=== PATIENT | female | born 1950 | race Caucasian/White ===

== ENCOUNTER 2018-08-03 00:42 | Outpatient (CLI) | payer MEDICARE, OTHER, SELFPAY ==
--- NOTE | 2018-08-03 12:40 | DI.MAMMO_ITS ---
SYMPTOM/DIAGNOSIS: SCREENING, Z12.39 MAMMOGRAMS: Mammograms were interpreted according to the usual protocol including computer analysis with CAD system, tomosynthesis and C view imaging. Comparison is made with exams from [id number]. The breasts are composed of fatty density tissue, breast density, Category A. No suspicious masses or suspicious microcalcifications are seen. There has been no significant change. IMPRESSION: Category 1A, negative mammogram. Yearly screening mammography is recommended. [facility] ASSESSMENT OF FINDINGS: Negative. Category 1. Patient will receive a letter notifying them of these results. BI-RAD category A. The breasts are almost entirely fatty.
== END 2018-08-03 01:02 ==
PROVIDERS: PCP Internal Medicine; Visit Provider Internal Medicine
DX: Z12.31 Encounter for screening mammogram for malignant neoplasm of breast (principal)
CPT/HCPCS: 77063; 77067

== ENCOUNTER 2019-01-25 10:06 | Outpatient (REF) | payer MEDICARE, OTHER, SELFPAY ==
[2019-01-25 21:54] LABS: Anion Gap 10.8 mmol/L (3-11); BUN 27 mg/dL (7-18); CO2 27.2 mmol/L (21.0-32.0); CREATININE 1.04 mg/dL (0.55-1.02); Calcium 9.2 mg/dL (8.5-10.1); Chloride 105 mmol/L (98-107); Glucose 117 mg/dL (70-100); Potassium 4.9 mmol/L (3.5-5.1); Sodium 143 mmol/L (136-145)
== END 2019-01-25 10:26 ==
LOC: NCHCN 10:06
PROVIDERS: PCP Internal Medicine; Visit Provider Internal Medicine
DX: I10 Essential (primary) hypertension (principal)
CPT/HCPCS: 80048

== ENCOUNTER 2020-01-25 22:27 | Outpatient (REF) | payer MEDICARE, OTHER, SELFPAY ==
[2020-01-25 21:03] LABS: Anion Gap 8.5 mmol/L (3-11); BUN 32 mg/dL (7-18); CO2 28.5 mmol/L (21.0-32.0); Calcium 9.6 mg/dL (8.5-10.1); Chloride 105 mmol/L (98-107); Estimated GFR 49.25 (mL/min/1.73m2); Glucose 95 mg/dL (74-106); Potassium 4.7 mmol/L (3.5-5.1); Sodium 142 mmol/L (136-145)
[2020-01-25 21:26] LABS: Hemoglobin A1C 6.4 % (3.8-5.6)
== END 2020-01-25 22:47 ==
LOC: NCHCN 22:27
PROVIDERS: PCP Internal Medicine; Visit Provider Internal Medicine
DX: E11.9 Type 2 diabetes mellitus without complications (principal); I10 Essential (primary) hypertension; E78.5 Hyperlipidemia, unspecified; E66.9 Obesity, unspecified
CPT/HCPCS: 80048; 83036

== ENCOUNTER 2020-08-11 01:04 | Outpatient (CLI) | payer MEDICARE, OTHER, SELFPAY ==
--- NOTE | 2020-08-11 | DI.MAMMO_ITS ---
EXAM: MG MAMMO SCREENING CLINICAL HISTORY: SCREENING, Z12.31 TECHNIQUE: Bilateral full field digital CC and MLO mammographic images were obtained with 3D tomosyn thesis and utilizing computer aided detection (CAD). COMPARISON: Available for comparison. FINDINGS: Masses/Architectural Distortion: None seen. Microcalcifications: No suspicious pleomorphic-type are seen. Skin Thickening/Nipple Retraction: None. IMPRESSION: 1. No significant interval change with no specific features of malignancy noted. 2. Unless there is more urgent need, screening mammography is recommended, as per [employer] guidelines. BI-RADS Category 1 - Negative Breast Density - Category A - Almost entirely fatty Breast density category C or D implies that the patient has dense breast tissue. Dense breast tissue is very common and is not abnormal but dense breast tissue can make it harder to find cancer on a ma mmogram. Also, dense breast tissue may increase their breast cancer risk. This information about the result of the mammogram report was provided to the patient to raise their awareness. Use this report when you speak with the patient about their risks for breast cancer, which includes their family hist ory. At that time, you may recommend for more screening tests (Ultrasound or MRI) as they might be us eful based on their risk. A negative radiographic report should not delay biopsy if a dominant or clinically suspicious mass is present. Up to ten percent of cancers are not identified on mammography. A negative report may reinforce clinical impression. Adenosis and dense breasts may obscure an underlying neoplasm. False positive reports average 6 to 10%. Patient will receive a letter notifying them of these results.
== END 2020-08-11 01:05 | disposition home or self-care (01) ==
LOC: DI 01:04
PROVIDERS: PCP Internal Medicine; Visit Provider Internal Medicine
DX: Z12.31 Encounter for screening mammogram for malignant neoplasm of breast (principal)
CPT/HCPCS: 77063; 77067

== ENCOUNTER 2021-02-04 15:15 | Outpatient (REF) | payer MEDICARE, OTHER, SELFPAY ==
[2021-02-04 14:33] LABS: HCT 37.8 % (36.0-46.0); HGB 11.8 g/dL (11.2-15.7); MCH 27.8 pg (27.0-33.0); MCHC 31.2 % (32.0-36.0); MCV 89.2 fL (80-95); MPV 11.5 fL (8.0-11.0); Platelet Count 296 10^3/uL (130-400); RBC 4.24 10^6/uL (3.93-5.22); RDW 13.2 % (11.7-14.6); RDW-SD 43.4 fL; WBC 9.79 10^3/uL (4.4-10.8)
[2021-02-04 15:21] LABS: ALT 28 U/L (14-59); AST 15 U/L (15-37); Albumin 3.6 g/dL (3.4-5.0); Alkaline Phosphatase 84 U/L (46-116); BUN 26 mg/dL (7-18); Bilirubin, Total 0.4 mg/dL (0.2-1.0); CREATININE 1.2 mg/dL (0.55-1.02); Calcium 9.4 mg/dL (8.5-10.1); Chloride 103 mmol/L (98-107); Estimated GFR 44.41 (mL/min/1.73m2); Glucose 117 mg/dL (74-106); Potassium 4.7 mmol/L (3.5-5.1); Sodium 139 mmol/L (136-145)
== END 2021-02-04 15:16 | disposition home or self-care (01) ==
LOC: NCHCN 15:15
PROVIDERS: PCP Internal Medicine; Visit Provider Family Medicine
DX: E11.9 Type 2 diabetes mellitus without complications (principal); N18.30 Chronic kidney disease, stage 3 unspecified
CPT/HCPCS: 80053; 85027

== ENCOUNTER 2022-02-03 08:11 | Outpatient (REF) | payer MEDICARE, OTHER, SELFPAY ==
[2022-02-03 15:01] LABS: HCT 39.3 % (36.0-46.0); HGB 12.4 g/dL (11.2-15.7); MCH 28.7 pg (27.0-33.0); MCHC 31.6 % (32.0-36.0); MCV 91 fL (80-95); Platelet Count 283 10^3/uL (130-400); RBC 4.32 10^6/uL (3.93-5.22); WBC 11.09 10^3/uL (4.4-10.8)
[2022-02-03 15:21] LABS: ALT 25 U/L (14-59); AST 17 U/L (15-37); Albumin 3.5 g/dL (3.4-5.0); Alkaline Phosphatase 74 U/L (46-116); Anion Gap 9.9 mmol/L (3-11); BUN 30 mg/dL (7-18); Bilirubin, Total 0.4 mg/dL (0.2-1.0); CO2 26.1 mmol/L (21.0-32.0); CREATININE 1.4 mg/dL (0.55-1.02); Calcium 9.1 mg/dL (8.5-10.1); Calculated LDL 53 mg/dL (<100); Chloride 106 mmol/L (98-107); Cholesterol 124 mg/dL (<200); Estimated GFR 37.07 (mL/min/1.73m2); Glucose 124 mg/dL (74-106); HDL Cholesterol 44 mg/dL (40-60); Potassium 4.5 mmol/L (3.5-5.1); Sodium 142 mmol/L (136-145); Total Protein 7.2 g/dL (6.4-8.2); Triglyceride 135 mg/dL (<150)
[2022-02-03 15:32] LABS: Hemoglobin A1C 6.6 % (<5.7)
== END 2022-02-03 08:12 | disposition home or self-care (01) ==
LOC: NCHCN 08:11
PROVIDERS: PCP Internal Medicine; Visit Provider Family Medicine
DX: E11.9 Type 2 diabetes mellitus without complications (principal); E78.5 Hyperlipidemia, unspecified; I10 Essential (primary) hypertension; E66.9 Obesity, unspecified
CPT/HCPCS: 80053; 80061; 85027; 83036

== ENCOUNTER 2022-09-16 01:00 | Outpatient (CLI) | payer MEDICARE, SELFPAY ==
--- NOTE | 2022-09-16 12:45 | DI.MAMMO_ITS ---
Exam(s) MAMMO SCREENING EXAM: MAMMO SCREENING CLINICAL HISTORY: SCREENING, Z12.31 TECHNIQUE: Mammograms were interpreted according to the usual protocol including computer analysis w [employer] CAD system, tomosynthesis and C-view imaging. COMPARISON: 2012 through 2020 FINDINGS: The breasts are composed of mainly fatty density , Breast Density category A. No suspicious masses or suspicious microcalcifications are seen. No skin thickening or abnormal axillary lymph nodes are seen. There has been no significant change from prior exams. IMPRESSION: BI-RADS Category 1, Negative mammogram Yearly screening mammography is recommended. Breast Density - Category A, fatty density. A negative radiographic report should not delay biopsy if a dominant or clinically suspicious mass is present. Up to ten percent of cancers are not identified on mammography. A negative report may reinforce clinical impression. Adenosis and dense breasts may obscure an underlying neoplasm. False positive reports average 6 to 10%. Patient will receive a letter notifying them of these results.
== END 2022-09-16 01:20 ==
PROVIDERS: PCP Internal Medicine; Visit Provider Family Medicine
DX: Z12.31 Encounter for screening mammogram for malignant neoplasm of breast (principal)
CPT/HCPCS: 77063; 77067

== ENCOUNTER 2023-02-28 15:04 | Outpatient (REF) | payer MEDICARE, SELFPAY ==
[2023-02-28 15:54] LABS: Abs Immature Grans 0.02 10^3/uL (0.0-0.06); Absolute Basophil Count 0.04 10^3/uL (0.0-0.2); Absolute Eosinophil Count 0.23 10^3/uL (0.0-0.7); Absolute Lymphocyte Count 2.67 10^3/uL (1.2-3.4); Absolute Monocyte Count 0.84 10^3/uL (0.1-0.8); Basophils % 0.4; Eosinophils % 2.6; HCT 39.2 % (36.0-46.0); HGB 12.6 g/dL (11.2-15.7); Immature Grans % 0.2; Lymphocytes % 29.7; MCH 29.1 pg (27.0-33.0); MCHC 32.1 % (32.0-36.0); MCV 91 fL (80-95); MPV 11.5 fL (8.0-11.0); Monocytes % 9.3; Neutrophils % 57.8; Platelet Count 311 10^3/uL (130-400); RBC 4.33 10^6/uL (3.93-5.22); RDW 12.7 % (11.7-14.6); RDW-SD 41.8 fL
[2023-02-28 16:20] LABS: ALT 29 U/L (14-59); AST 19 U/L (15-37); Albumin 3.5 g/dL (3.4-5.0); Alkaline Phosphatase 85 U/L (46-116); Anion Gap 7.2 mmol/L (3-11); BUN 30 mg/dL (7-18); Bilirubin, Total 0.5 mg/dL (0.2-1.0); CO2 29.8 mmol/L (21.0-32.0); CREATININE 1.3 mg/dL (0.55-1.02); Calcium 9.3 mg/dL (8.5-10.1); Chloride 104 mmol/L (98-107); Estimated GFR 43.69 (mL/min/1.73m2); Glucose 129 mg/dL (74-106); Potassium 4.7 mmol/L (3.5-5.1); Sodium 141 mmol/L (136-145); Total Protein 7.3 g/dL (6.4-8.2)
[2023-02-28 17:06] LABS: COMMENT (LAB VIEW ONLY) 39.66 mg/dL; Microalb ug/mg Crea 23.4 ug/mg Cr
== END 2023-02-28 15:05 | disposition home or self-care (01) ==
LOC: NCHCN 15:04
PROVIDERS: PCP Internal Medicine; Visit Provider Family Medicine
DX: E11.9 Type 2 diabetes mellitus without complications; N18.30 Chronic kidney disease, stage 3 unspecified; E78.5 Hyperlipidemia, unspecified; I10 Essential (primary) hypertension
CPT/HCPCS: 80053; 82043; 82570; 85025

== ENCOUNTER 2024-05-03 12:53 | Outpatient (REF) | payer MEDICARE, SELFPAY ==
[2024-05-03 16:22] LABS: Anion Gap 14.1 mmol/L (3-11); BUN 27 mg/dL (7-18); CO2 34.9 mmol/L (21.0-32.0); CREATININE 1.8 mg/dL (0.55-1.02); Calcium 6.7 mg/dL (8.5-10.1); Chloride 96 mmol/L (98-107); Estimated GFR 29.38 (mL/min/1.73m2); Glucose 152 mg/dL (74-106); Sodium 145 mmol/L (136-145); Uric Acid 9.2 mg/dL (2.6-6.0)
[2024-05-03 16:27] LABS: Potassium 2.5 mmol/L (3.5-5.1)
== END 2024-05-03 12:54 | disposition home or self-care (01) ==
LOC: NCHCN 12:53
PROVIDERS: PCP Internal Medicine; Visit Provider Family Medicine
DX: I10 Essential (primary) hypertension (principal); M1A.9XX1 Chronic gout, unspecified, with tophus (tophi)
CPT/HCPCS: 80048; 84550

== ENCOUNTER 2024-05-04 18:31 | Emergency (ER) | payer MEDICARE, SELFPAY ==
--- NOTE | 2024-05-04 18:30 | DI.CT_ITS ---
Exam(s) CT HEAD CERVICAL SPINE WO EXAM: CT HEAD CERVICAL SPINE WO CLINICAL HISTORY: fall, pain. TECHNIQUE: Imaging Protocol: Axial computed tomography images with coronal and sagittal reformatted images were created and reviewed COMPARISON: No exams were available for comparison FINDINGS: BRAIN: There is a focal hematoma over the right parietal bone of the skull but no subjacent skull fracture. There are no skull fractures nor fluid in the visualized paranasal sinuses. There is no evidence of intracranial hemorrhage, mass effect, or shift of midline structures. There are no extra-axial fluid collections. The ventricles are not enlarged or shifted and there is no blo od within the ventricular system nor within the basal cisterns. CERVICAL SPINE: There is no evidence of fracture nor listhesis. No significant prevertebral soft tissue swelling. There are no acute fractures evident in the C1 arch nor in the odontoid nor at C2 level. There are multilevel bridging anterior osteophytes at C 3-4 and C4-5 levels. There is no significant disc space narrowing. There is some facet arthropathy but no facet joint malalignment. Spinous process is are intact. No significant osseous lesions. Small calcific density anterior to t he odontoid process measuring 3 x 2 mm is corticated and probably an accessory ossicle. IMPRESSION: Right parietal scalp hematoma. No skull fracture. No acute intracranial findings on this noninfused CT scan of the brain. No evidence of acute cervical spine fracture, malalignment, nor acute compromise of the cervical spin al canal. Degenerative changes as above. Report called by myself to ER physician 05/04/2024 at 7:26 p.m. RADIATION DOSE DELIVERED: 1,305.62mGy.cm Total DLP DATA REPOSITORY: All CT scans at this facility are submitted to the National Radiology Data Registry (NRDR) Dose Index Registry (DIR) with the [employer] (A[employer]). RADIATION OPTIMIZATION: All CT scans at this facility use at least one of these dose optimization te chniques: automated exposure control; mA and/or kV adjustment per patient size (includes targeted exa ms where dose is matched to clinical indication); or iterative reconstruction.
[2024-05-04 18:32] VITALS: BP 123/78; PULSE 86; RESP 18; TEMP 36.4; O2SAT 97
--- NOTE | 2024-05-04 18:46 | ED.GENADUL_ITS ---
Discharge Plan Disposition Patient Disposition: Home Condition: Stable Discharge Details Clinical Impression: Blunt head trauma Primary Care Provider: Mark Muñiz ED Provider: Virgil Sapp Home Meds and New Rx's Prescriptions: Continued multivitamin Tablet 1 tab PO DAILY calcium carbonate [Calcium 600] 600 mg calcium (1,500 mg) tablet 600 mg PO DAILY bisoprolol fumarate 10 mg tablet 10 mg PO DAILY metformin 500 mg tablet 500 mg PO DAILY atorvastatin 40 mg tablet 40 mg PO DAILY nifedipine 30 mg tablet extended release 30 mg PO DAILY Patient Comments: TAKE TWO TABLETS BY MOUTH EVERY EVENING AT BEDTIME Eliquis 5 mg tablet 5 mg PO BID Patient Comments: TAKE ONE TABLET BY MOUTH TWICE A DAY colchicine 0.6 mg capsule 0.6 mg PO DAILY PRN Patient Comments: TAKE ONE CAPSULE BY MOUTH EVERY DAY allopurinol 100 mg tablet 100 mg PO DAILY Patient Comments: TAKE ONE TABLET BY MOUTH EVERY DAY furosemide 40 mg tablet 40 mg PO DAILY Patient Comments: TAKE ONE TABLET BY MOUTH EVERY DAY potassium chloride 20 mEq tablet extended release 20 meq PO DAILY Patient Comments: picked up today to start tomorrow Discharge Instructions Additional Instructions: Your CAT scans did not show any concerning findings Follow-up with your primary care provider if you are having symptoms such as headaches or nausea If you feel more ill, have severe worsening pain or new symptoms such as persistent vomiting return to the emergency department for reevaluation HPI General Mode of arrival: EMS . Date/Time Provider Initiated Documentation: 05/04/24 18:38 . Limitations to Documentation: no limitations . Information obtained by: patient . History of Present Illness 74 year old F presents to the emergency department with the chief complaint of Fall, head injury, described as mild, Quality is described as aching, and is localized to the head. Patient reports no radiation. Patient started experiencing this hour(s) (1) and it has been constant. No relieving factors improve symptom(s), No exacerbating factors reported . Patient notes denies chest pain and shortness of breath. Patient did receive the following treatments prior to arrival, none Related Data Home Medications ?Medication ?Instructions ?Recorded ?Confirmed atorvastatin 40 mg tablet 40 mg PO DAILY 03/04/23 05/04/24 bisoprolol fumarate 10 mg tablet 10 mg PO DAILY 03/04/23 05/04/24 calcium carbonate (Calcium 600) 600 mg PO DAILY 03/04/23 05/04/24 metformin 500 mg tablet 500 mg PO DAILY 03/04/23 05/04/24 multivitamin 1 tab PO DAILY 03/04/23 05/04/24 allopurinol 100 mg tablet 100 mg PO DAILY 05/04/24 05/04/24 apixaban 5 mg tablet (Eliquis) 5 mg PO BID 05/04/24 05/04/24 colchicine 0.6 mg capsule 0.6 mg PO DAILY PRN 05/04/24 05/04/24 furosemide 40 mg tablet 40 mg PO DAILY 05/04/24 05/04/24 nifedipine 30 mg tablet,extended 30 mg PO DAILY 05/04/24 05/04/24 release potassium chloride 20 mEq 20 meq PO DAILY 05/04/24 05/04/24 tablet,extended release Allergies Allergy/AdvReac Type Severity Reaction Status Date / Time No Known Allergies Allergy Verified 05/04/24 18:35 General Stated Complaint: HeadInjury CARLO: 3 Review of Systems All systems reviewed & are unremarkable except as noted in HPI and below Constitutional Constitutional: Denies chills, Denies fever(s) and Denies weakness Cardiovascular Cardiovascular: Denies chest pain and Denies dyspnea Respiratory Respiratory: Denies cough and Denies dyspnea Gastrointestinal Gastrointestinal: Denies abdominal pain, Denies nausea and Denies vomiting Neurologic Neurologic: Denies weakness Exam Const General: no acute distress Orientation: alert [facility] Head: no palpable skull fracture Ears: external ears normal General nose exam: external nose normal Mouth: moist mucous membranes Eyes General: appearance normal, both eyes and all related structures Neck Neck: normal visual inspection and nontender Chest Chest: no tenderness Resp Effort & Inspection: normal respiratory effort and able to speak in complete sentences Cardio Rate: regular rate GI Palpation: soft and nontender Back/Spine/Pelvis Cervical Spine: No cervical spinal tenderness Thoracic/Lumbar Spine: No thoracic spinal tenderness and No lumbar spinal tenderness Skin General skin exam: no rashes or lesions noted Neuro General: patient alert and patient oriented x3 Extrem General: normal to inspection Psych Mental Status: mental status grossly normal Course Vital Signs Vital signs: Vital Signs Temperature 36.4 C L 05/04/24 18:32 Pulse 86 05/04/24 18:32 Respiratory Rate 18 05/04/24 18:32 Blood Pressure 123/78 05/04/24 18:32 Pulse Oximetry 97 05/04/24 18:32 Temperature 36.4 C L 05/04/24 18:32 Temperature Source Temporal Artery Scan 05/04/24 18:32 Pulse 86 05/04/24 18:32 Respiratory Rate 18 05/04/24 18:32 Respiratory Effort Normal, Non-Labored 05/04/24 18:36 Blood Pressure 123/78 05/04/24 18:32 Blood Pressure Position Sitting 05/04/24 18:32 Pulse Oximetry 97 05/04/24 18:32 Oxygen Delivery Method Room Air 05/04/24 18:32 Oxygen Flow Rate 0 05/04/24 18:32 Medical Decision Making 74-year-old female with a history of chronic kidney disease, hypertension, hyperlipidemia, type 2 diabetes, comes in after a fall. She says she recently got to the hospital after being treated for pneumonia and was at rehab. She says she was at her house and was going up the stairs when she missed stepped and fell backwards falling 3 stairs. Did not lose consciousness, she has a posterior scalp hematoma that was bleeding prior to arrival but has now stopped. She has no midline C-spine tenderness, does have right lateral neck tenderness. She has no chest, abdomen, back tenderness. No extremity pain. Given her age and the fall will obtain CT head and C-spine. Do not feel any labs indicated as she states this is purely mechanical fall. Patient's imaging unremarkable, she is hemodynamically stable and still appears well.She has no new pain elsewhere. No midline C-spine tendernes. She has no lacerations requiring sutures. She is stable for discharge home follow-up with her PCP if she is having symptoms this week such as headache, return precautions given Differential Diagnosis Differential Diagnosis: TBI, concussion, cervical strain Quality:SDOH Health Related Social Needs: No Data to Display PFSH All Active Problems (Updated 05/04/24 @ 19:44 by Virgil Sapp MD) Blunt head trauma (Acute) Medical History (Updated 05/04/24 @ 19:44 by Virgil Sapp MD) Fear of needles Obesity Allergic rhinitis, seasonal Spigelian hernia Hypertension Hyperlipidemia Chronic kidney disease Diabetes mellitus, type II Skin lesion Social History Smoking/Tobacco Use Status: Never Smoking risk assessment performed?: Yes Alcohol Intake: current Alcohol Intake frequency: 0-2 drinks per day Drug use: Never Substance use type: does not use Do you feel safe at home: Yes Do you feel safe in your relationship?: Yes PAWSS Have you Been Recently Intoxicated or Drunk Within the Last 30 days?: No Have you Ever Experienced Previous Episodes of Alcohol Withdrawal?: No Have you ever Experienced Withdrawal Seizures?: No Have you ever Experienced Delirium Tremens(DT)s?: No Have you ever undergone Alcohol Rehabilitation Treatment (i.e, inpt ot outpatient treatment programs)?: No Have you ever Experienced Blackouts?: No Have you ever Combined Alcohol with other Downers within the last 90 days?: No Have you ever Combined Alcohol with any other Substance of Abuse during the last 90 days?: No Positive Blood Alcohol level on Presentation? [PCS.BAL]: No Evidence of Increased Autonomic Activity (i.e. HR>120, tremor, sweating, agitation, nausea)?: No Result: 0
[2024-05-04 19:57] VITALS: BP 94/70; PULSE 84; RESP 18; O2SAT 100
== END 2024-05-04 19:58 | disposition home or self-care (01) ==
PROVIDERS: Emergency Provider Emergency Medicine; PCP Family Medicine
DX: R51.9 Headache, unspecified; W10.8XXA Fall (on) (from) other stairs and steps, initial encounter; Z87.448 Personal history of other diseases of urinary system; Z86.79 Personal history of other diseases of the circulatory system; E11.22 Type 2 diabetes mellitus with diabetic chronic kidney disease; Z87.01 Personal history of pneumonia (recurrent); S00.03XA Contusion of scalp, initial encounter
CPT/HCPCS: 99284; 70450; 72125; 99283

== ENCOUNTER 2024-05-05 10:25 | Inpatient (IN) | payer MEDICARE, SELFPAY ==
[2024-05-05] VITALS (57 sets, daily range): BP systolic 90–128; BP diastolic 38–66; PULSE 62–113; RESP 10–33; TEMP 36–36.4; O2SAT 89–100
--- NOTE | 2024-05-05 10:30 | RT.EKG_ITS ---
APPROVED REPORT Exam: Resting ECG Reason for Exam: dizziness Patient Location: E HR:75 bpm ECG Measurements Heart Rate 75 AXIS DE 162 P 30 QRSd 102 QRS 26 QT 490 T 34 QTc 545 Conclusion Sinus rhythm, rate 75 Prolonged QTc at 545ms PACs No STEMI Q wave lead III
--- NOTE | 2024-05-05 11:02 | ED.GENADUL_ITS ---
Discharge Plan Disposition Patient Disposition: Admit to [facility] Condition: Stable Discharge Details Chief Complaint: Dizzy/Sync Clinical Impression: GERRY (acute kidney injury), Acute hypokalemia, Hypomagnesemia, Prolonged Q-T interval on ECG, Anemia, Anticoagulant long-term use, Generalized weakness Primary Care Provider: Mark Muñiz ED Provider: Rochelle Rogers Home Meds and New Rx's Prescriptions: No Action multivitamin Tablet 1 tab PO DAILY calcium carbonate [Calcium 600] 600 mg calcium (1,500 mg) tablet 600 mg PO DAILY bisoprolol fumarate 10 mg tablet 10 mg PO DAILY metformin 500 mg tablet 500 mg PO DAILY atorvastatin 40 mg tablet 40 mg PO DAILY nifedipine 30 mg tablet extended release 30 mg PO DAILY Patient Comments: TAKE TWO TABLETS BY MOUTH EVERY EVENING AT BEDTIME Eliquis 5 mg tablet 5 mg PO BID Patient Comments: TAKE ONE TABLET BY MOUTH TWICE A DAY colchicine 0.6 mg capsule 0.6 mg PO DAILY PRN Patient Comments: TAKE ONE CAPSULE BY MOUTH EVERY DAY allopurinol 100 mg tablet 100 mg PO DAILY Patient Comments: TAKE ONE TABLET BY MOUTH EVERY DAY furosemide 40 mg tablet 40 mg PO DAILY Patient Comments: TAKE ONE TABLET BY MOUTH EVERY DAY potassium chloride 20 mEq tablet extended release 20 meq PO DAILY Patient Comments: picked up today to start tomorrow HPI General Date/Time Provider Initiated Documentation: 05/05/24 10:33 . Limitations to Documentation: no limitations . Information obtained by: patient, EMS and old records reviewed . HPI Narrative: HPI: This is a 74-year-old female patient with a past medical history notable for diabetes, hypertension, CKD, and use of Eliquis. She was seen last night after a fall down a few stairs, with a posterior scalp hematoma. She had a negative CT of her head and C-spine, states that she has not taken additional Eliquis since that time. She was transported home and states that she felt very weak after her visit, laid down on the floor and was unable to get up, and slept on the floor overnight. She states that she has not had much to eat or drink, has not passed urine, and summoned EMS this morning for feeling continued weakness. When EMS was able to get her up off the floor, she was able to stand and she felt slightly stronger. However, she noticed that she was feeling slightly lightheaded, with no loss of consciousness, vision changes, or headache. She was taken to our department for further evaluation, was hemodynamically stable throughout transport. The patient reports that she was recently discharged from a rehab facility and felt like she has been getting stronger, but notes that she has not gotten her strength back to the confident on stairs. She suspects this is the reason for her fall last night, and states that she has not experienced any subsequent falls. She is not experiencing any new pain, specifically denies abdominal, back, chest, neck, and head pain. Exam: Gen: Awake and alert, in no apparent distress HEENT: Non-icteric sclera, pupils equal and reactive bilaterally, EOMs are full. The patient has a large hematoma to the right posterior scalp Neck: Supple, no midline spinal tenderness, no step-offs Lungs: No apparent respiratory distress, normal respiratory effort. CV: Appears well perfused, lung sounds clear and equal bilaterally, chest wall nontender and without deformity Abdomen: Non-distended, soft, nontender to palpation without rigidity, rebound, or guarding. The patient has a large hematoma to her lower right flank that is not tender, nonpulsatile MSK: Moves 4 extremities without apparent limitation in ROM Skin: Visualized skin without rashes, cyanosis. Neuro: Normal Gait, no obvious focal deficits or facial asymmetry. 5/5 strength x 4 extremities with no sensory deficits. Speaks in full, clear sentences. Psych: Appropriate for situation. MDM: This is a 74-year-old female patient presenting for evaluation of weakness today after a fall at home. Reassuringly, the patient had a normal head CT, has not had any development of neurodeficits, pain, or evidence of unidentified injuries. My differential includes but is not limited to anemia, metabolic and electrolyte derangement, kidney injury, liver dysfunction. I considered arrhythmia, no chest pain to suggest ACS. I considered rhabdomyolysis given her prolonged downtime, considered UTI. The patient's hematoma is not causing the patient discomfort, with no abdominal pain associated with it I have a lower concern for intra-abdominal injury due to her fall. We will obtain laboratory studies to include CBC, CMP, magnesium, UA, and CK. I obtained and reviewed an EKG, which shows a normal sinus rhythm with no evidence of ischemia, as well as a notably prolonged QTc. ED Course: The patient has no leukocytosis, does have an anemia to 9.5, no recent laboratory studies available for comparison but a year and a half ago she had hemoglobin of 12. Platelet count is normal. Her chemistry panel demonstrates hypokalemia to 3.0, patient reports that she was recently started on potassium supplementation. She has evidence of an GERRY with a BUN of 39 and a creatinine of 3.9, increased from a creatinine of 1.9 just a few days ago. Her calcium is low at 6.5, which was demonstrated on laboratory studies last year, as well as a low magnesium of 0.9. She is a mild transaminitis, and a normal CK. Troponin was 41, which is less concerning for acute ischemia. Given the patient's GERRY and laboratory abnormalities, I will provide her with 4 g of magnesium, a liter of normal saline, and p.o. potassium for initial repletion. I reached out to our hospitalist, who is graciously accepted this patient for admission to their service for ongoing electrolyte repletion, fluid management, and PT/OT for her generalized weakness. While in the emergency department she remained hemodynamically appropriate and she was transferred from our department without incident. Rochelle Rogers MD Related Data Home Medications ?Medication ?Instructions ?Recorded ?Confirmed atorvastatin 40 mg tablet 40 mg PO DAILY 03/04/23 05/05/24 bisoprolol fumarate 10 mg tablet 10 mg PO DAILY 03/04/23 05/05/24 calcium carbonate (Calcium 600) 600 mg PO DAILY 03/04/23 05/05/24 metformin 500 mg tablet 500 mg PO DAILY 03/04/23 05/05/24 multivitamin 1 tab PO DAILY 03/04/23 05/05/24 allopurinol 100 mg tablet 100 mg PO DAILY 05/04/24 05/05/24 apixaban 5 mg tablet (Eliquis) 5 mg PO BID 05/04/24 05/05/24 colchicine 0.6 mg capsule 0.6 mg PO DAILY PRN 05/04/24 05/05/24 furosemide 40 mg tablet 40 mg PO DAILY 05/04/24 05/05/24 nifedipine 30 mg tablet,extended 30 mg PO DAILY 05/04/24 05/05/24 release potassium chloride 20 mEq 20 meq PO DAILY 05/04/24 05/05/24 tablet,extended release Allergies Allergy/AdvReac Type Severity Reaction Status Date / Time No Known Allergies Allergy Verified 05/04/24 18:35 General Stated Complaint: Dizzy/Sync CARLO: 2 Course Vital Signs Vital signs: Vital Signs Respiratory Rate 15 05/05/24 10:35 Pulse Oximetry 100 05/05/24 10:35 Temperature 36.4 C L 05/05/24 10:37 Temperature Source Oral 05/05/24 10:37 Pulse 98 H 05/05/24 10:39 Pulse 79 05/05/24 10:40 Respiratory Rate 27 H 05/05/24 10:40 Respiratory Effort Normal, Non-Labored 05/05/24 10:45 Blood Pressure 94/44 L 05/05/24 10:39 Blood Pressure Mean 60 05/05/24 10:39 Blood Pressure Position Supine 05/05/24 10:37 Pulse Oximetry 100 05/05/24 10:40 Oxygen Delivery Method Room Air 05/05/24 10:37 Oxygen Flow Rate 0 05/05/24 10:37 Pain Level 5 05/05/24 10:37 Comment old head hematoma and right flank bruise 05/05/24 10:37 Medical Decision Making Quality:SDOH Health Related Social Needs: No Data to Display PFSH All Active Problems (Updated 05/05/24 @ 12:15 by Rochelle Rogers MD) Generalized weakness (Acute) Anticoagulant long-term use (Acute) Anemia (Chronic) Prolonged Q-T interval on ECG (Acute) Hypomagnesemia (Acute) Acute hypokalemia (Acute) GERRY (acute kidney injury) (Acute) Blunt head trauma (Acute) Medical History (Updated 05/05/24 @ 12:15 by Rochelle Rogers MD) Fear of needles Obesity Allergic rhinitis, seasonal Spigelian hernia Hypertension Hyperlipidemia Chronic kidney disease Diabetes mellitus, type II Skin lesion Social History Smoking/Tobacco Use Status: Never Smoking risk assessment performed?: Yes Alcohol Intake: current Alcohol Intake frequency: 0-2 drinks per day Drug use: Never Substance use type: does not use Housing: house Do you feel safe at home: Yes Do you feel safe in your relationship?: Yes Additional Social history: lives with
[2024-05-05 11:11] LABS: Abs Immature Grans 0.11 10^3/uL (0.0-0.06); Absolute Eosinophil Count 0.03 10^3/uL (0.0-0.7); Absolute Lymphocyte Count 2.23 10^3/uL (1.2-3.4); Absolute Monocyte Count 1.01 10^3/uL (0.1-0.8); Absolute Neutrophil Count 9.36 10^3/uL (1.2-6.7); Basophils % 0.5 %; Eosinophils % 0.2 %; HCT 30.3 % (36.0-46.0); HGB 9.5 g/dL (11.2-15.7); Immature Grans % 0.9 %; Lymphocytes % 17.4 %; MCH 27.1 pg (27.0-33.0); MCHC 31.4 % (32.0-36.0); MCV 86 fL (80-95); MPV 10.5 fL (8.0-11.0); Monocytes % 7.9 %; Neutrophils % 73.1 %; Platelet Count 392 10^3/uL (130-400); RBC 3.51 10^6/uL (3.93-5.22); RDW 14.5 % (11.7-14.6); RDW-SD 44.2 fL; WBC 12.81 10^3/uL (4.4-10.8)
[2024-05-05 11:12] LABS: Absolute Basophil Count 0.06 10^3/uL (0.0-0.2)
[2024-05-05 11:29] LABS: ALT 80 U/L (14-59); AST 81 U/L (15-37); Albumin 2.9 g/dL (3.4-5.0); Alkaline Phosphatase 127 U/L (46-116); BUN 39 mg/dL (7-18); Bilirubin, Total 0.67 mg/dL (0.2-1.0); Calcium 6.5 mg/dL (8.5-10.1); Chloride 97 mmol/L (98-107); Creatine Kinase 149 U/L (26-192); Estimated GFR 11.62 (mL/min/1.73m2); Glucose 166 mg/dL (74-106); Magnesium 0.9 mg/dL (1.8-2.4); Sodium 145 mmol/L (136-145); Total Protein 7.1 g/dL (6.4-8.2); Troponin I 41 ng/L (<or=51)
[2024-05-05 11:31] LABS: CREATININE 3.9 mg/dL (0.55-1.02)
[2024-05-05] MEDS: Potassium Chloride 20 MEQ TABCR 40 MEQ PO (12:01)
[2024-05-05] MEDS: MAGNESIUM SULFATE 4 GM/100 ML BAG IV_INF (12:01)
[2024-05-05] MEDS: Normal Saline 1,000 ML 1000 ML IV (12:01)
[2024-05-05 12:11] LABS: Bilirubin Negative (Negative); Blood Small (Negative); Clarity Sl Cloudy (Clear); Glucose Negative (Negative); Ketones Negative (Negative); Leukocyte Esterase Small (Negative); Nitrite Negative (Negative); Specific Gravity 1.015 (1.005-1.025); Urobilinogen 0.2 mg/dL (Up to 0.2); pH 6.5 (5-8)
[2024-05-05 12:22] LABS: Bacteria Moderate HPF (Negative); C & S Indicated? No/Sq. Contamination; Casts 0-2 Hyaline LPF (Negative); Crystals Negative HPF (Negative); Epithelial Cells Moderate HPF (Negative); Mucus Negative (Negative); WBC 20-50 HPF (0-5)
--- NOTE | 2024-05-05 12:24 | W.PM.HP.N ---
Date of service: 05/05/24 Time of Service: 12:24 Assessment and Plan Assessment and plan (1) GERRY (acute kidney injury): Status: Acute Assessment and plan: Creatinine found to be elevated at 3.9 with baseline 1.1-1.4 suspect prerenal in the setting of poor p.o. intake received 1 L of normal saline in the emergency department and is able to take oral intake without any difficulty. Will push p.o. fluids in the setting of IV fluid supply reduction Lasix and metformin placed on hold Will avoid nephrotoxic drugs renally dose as needed If does not respond to fluid resuscitation will need renal imaging (2) Hypomagnesemia: Status: Acute Assessment and plan: Mag level 0.9 Received 4 g of IV magnesium in the emergency department Will repeat level in a.m. and continue to replete as warranted (3) Acute hypokalemia: Status: Acute Assessment and plan: Replete and follow (4) Blunt head trauma: Status: Acute Assessment and plan: No loss of consciousness Head CT yesterday negative No concerning symptoms including headache, confusion, visual disturbance, etc. (5) Anemia: Status: Chronic Assessment and plan: Last hemoglobin and hematocrit in February 2023 was 12.6 and 39.2 today found to be 9.5 and 30.3 iron studies added, check stool for occult blood Does have significant bruising to right hip and is on Eliquis which has been on hold following her injury last night Hemodynamically stable will monitor for signs of acute bleeding Will continue to hold apixaban at this time until we have determine if this is an acute drop (6) Generalized weakness: Status: Acute Assessment and plan: Physical therapy consultation Possibly secondary to acute dehydration and GERRY (7) Diabetes mellitus, type II: Status: Acute Assessment and plan: Diabetic diet with sliding scale coverage before meals and at bedtime Metformin placed on hold in the setting of acute kidney injury Hemoglobin A1c added to ED labs (8) Hypertension: Status: Chronic Assessment and plan: Blood pressure is controlled continue nifedipine and bisoprolol Lasix will be placed on hold in the setting of dehydration/GERRY Adjust meds as needed Consider holding if evidence of acute bleeding, holding parameters on nifedipine if SBP less than 110 (9) Atrial fibrillation: Status: Chronic Assessment and plan: New onset of atrial fibrillation about 1 month ago found during a hospitalization for acute pneumonia. She is now in sinus rhythm Fully anticoagulated on apixaban which is now on hold following a head injury and drop in her hemoglobin and hematocrit from 12.6 and 39.2 in February 2023 now found to be 9.5 and 30.3 Continue bisoprolol 10 mg daily (10) Discharge planning issues: Status: Acute Assessment and plan: DVT prophylaxis-patient is fully anticoagulated on apixaban however this is on hold following her fall with head injury and now drop in her H&H. Teds and SCDs only Discharge planning-awaiting physical therapy consultation for discharge recommendations. Just discharged from rehab 1 week ago would be agreeable to go back if needed Discussed with Dr. Vizcarra History of Present Illness Narrative: This is a 74-year-old female patient with a past medical history of diabetes, hypertension, CKD, and use of Eliquis. She was seen last night after a fall down a few stairs, with a posterior scalp hematoma. She had a negative CT of her head and C-spine, states that she has not taken additional Eliquis since that time. She was transported home and states that she felt very weak after her visit, laid down on the floor and was unable to get up, and slept on the floor overnight. She states that she has not had much to eat or drink, has not passed urine, and call EMS this morning for feeling continued weakness. When EMS was able to get her up off the floor, she was able to stand and she felt slightly stronger. However, she noticed that she was feeling slightly lightheaded, with no loss of consciousness, vision changes, or headache. She was recently hospitalized in [facility] after she developed pneumonia while being on vacation. She states she was in the hospital approximately 2 weeks and was too weak to be discharged home so was sent to [facility] and rehab for further rehabilitation. She states that she was discharged from there to home approximately 1 week ago and was doing okay up until last night she states she walked up 3 steps to get into her breezeway and at the top lost her balance fell backwards striking her head on the floor. Review of Systems All systems reviewed & are unremarkable except as noted in HPI and below PFSH All Active Problems (Updated 05/05/24 @ 17:20 by Alannah Davis NP) Discharge planning issues (Acute) Atrial fibrillation (Chronic) Hypertension (Chronic) Diabetes mellitus, type II (Acute) Generalized weakness (Acute) Anticoagulant long-term use (Acute) Anemia (Chronic) Prolonged Q-T interval on ECG (Acute) Hypomagnesemia (Acute) Acute hypokalemia (Acute) GERRY (acute kidney injury) (Acute) Blunt head trauma (Acute) Medical History (Updated 05/05/24 @ 17:20 by Alannah Davis NP) Fear of needles Obesity Allergic rhinitis, seasonal Spigelian hernia Hyperlipidemia Chronic kidney disease Skin lesion Social History Smoking/Tobacco Use Status: Never Smoking risk assessment performed?: Yes Alcohol Intake: current Alcohol Intake frequency: 0-2 drinks per day Drug use: Never Substance use type: does not use Housing: house Do you feel safe at home: Yes Do you feel safe in your relationship?: Yes Additional Social history: lives with Meds Allergies and Home Medications Allergies Allergy/AdvReac Type Severity Reaction Status Date / Time No Known Allergies Allergy Verified 05/04/24 18:35 Home Medications ?Medication ?Instructions ?Recorded ?Confirmed ?Type atorvastatin 40 mg tablet 40 mg PO DAILY 03/04/23 05/05/24 History bisoprolol fumarate 10 mg tablet 10 mg PO DAILY 03/04/23 05/05/24 History calcium carbonate (Calcium 600) 600 mg PO DAILY 03/04/23 05/05/24 History metformin 500 mg tablet 500 mg PO DAILY 03/04/23 05/05/24 History multivitamin 1 tab PO DAILY 03/04/23 05/05/24 History allopurinol 100 mg tablet 100 mg PO DAILY 05/04/24 05/05/24 History apixaban 5 mg tablet (Eliquis) 5 mg PO BID 05/04/24 05/05/24 History colchicine 0.6 mg capsule 0.6 mg PO DAILY PRN 05/04/24 05/05/24 History furosemide 40 mg tablet 40 mg PO DAILY 05/04/24 05/05/24 History nifedipine 30 mg tablet,extended 30 mg PO DAILY 05/04/24 05/05/24 History release potassium chloride 20 mEq 20 meq PO DAILY 05/04/24 05/05/24 History tablet,extended release Exam Narrative Exam Narrative: Obese female of stated age in no acute distress does have a hematoma to the right parietal area. Eyes nonicteric noninjected EOMs are intact neurologic she is awake alert oriented no focal deficits she is a good historian. Her oromucosa is dry lips are dry her neck is supple with full range of motion no JVD cardiovascular regular rate and rhythm EKG shows normal sinus rhythm with no acute ST segment changes QTc noted to be 545 respirations are even and unlabored abdomen is round soft nontender moves all extremities equally. She does have significant bruising to her right hip and elbow. No lesions noted psychiatric normal mood and affect Results Labs 05/05/24 11:00 05/05/24 11:00 Labs: Laboratory Results - last 24 hr 05/05/24 05/05/24 11:00 11:55 WBC 12.81 H RBC 3.51 L Hgb 9.5 L Hct 30.3 L MCV 86 MCH 27.1 MCHC 31.4 L RDW 14.5 Plt Count 392 MPV 10.5 Immature Gran % 0.9 Neutrophils % 73.1 Lymphocytes % 17.4 Monocytes % 7.9 Eosinophils % 0.2 Basophils % 0.5 Nucleated RBC % 0.0 Absolute Neutrophils 9.36 H Absolute Lymphocytes 2.23 Absolute Monocytes 1.01 H Absolute Eosinophils 0.03 Absolute Basophils 0.06 Sodium 145 Potassium 3.0 L Chloride 97 L Carbon Dioxide 26.0 Anion Gap 22.0 H BUN 39 H Creatinine 3.9 H* D Est GFR (CKD-EPI 2020) 11.62 Glucose 166 H Calcium 6.5 L Magnesium 0.9 L Total Bilirubin 0.67 AST 81 H ALT 80 H Alkaline Phosphatase 127 H Creatine Kinase 149 Troponin I 41 Total Protein 7.1 Albumin 2.9 L Urine Color Yellow Urine Clarity Sl Cloudy Urine pH 6.5 Ur Specific [place] 1.015 Urine Protein Negative Urine Ketones Negative Urine Blood Small H Urine Nitrite Negative Urine Bilirubin Negative Urine Urobilinogen 0.2 Ur Leukocyte Esterase Small H Urine RBC 5-10 H Urine WBC 20-50 H Ur Epithelial Cells Moderate Urine Crystals Negative Urine Bacteria Moderate Urine Casts 0-2 Hyaline Urine Mucus Negative Ur Culture Indicated? No/Sq. Contamination Urine Glucose Negative Last Vital Signs Temp 36.4 C L 05/05/24 10:37 Pulse 113 H 05/05/24 11:01 Resp 16 05/05/24 11:53 BP 99/51 L 05/05/24 11:01 Pulse Ox 99 05/05/24 11:01 Time Spent Time spent with Patient: 55-74 minutes Time was spent: preparing to see the patient(eg.review tests), obtaining and/or reviewing separately otained hiistory, ordering medications,tests, procedures, indepentently interpreting results and counseling the patient
[2024-05-05 12:30] LABS: Troponin I 32 ng/L (<or=51)
[2024-05-05 13:39] LABS: Lab Add On Test DONE
[2024-05-05 13:45] LABS: Reticulocyte 2.9 % (0.5-2.4)
[2024-05-05 13:58] LABS: Iron 29 ug/dL (50-170); Total Iron Binding Capacity 242 ug/dL (250-450); Transferrin Sat 12 % (15-50)
[2024-05-05 14:04] LABS: Hemoglobin A1C 6.4 % (<5.7)
[2024-05-05 14:37] LABS: Ferritin > 2000 ng/mL (8-252)
--- NOTE | 2024-05-05 15:54 | W.PC.ACHO ---
Registration Status: Primary Language: Preferred Language: ED Information & Data Chief Complaint Dizzy/Sync 05/05/24 11:05 Triage Note pt with recent fall on 05/05/24 10:37 thinners, d/c home last night at 1800 but on arrival home had profound weakness and lay on floor all night, gave a candy, pt had BM but no urinary output, large bruise to right flank, large hematoma to right occipital from yesterday, no abd tenderness, nausea transient, low BP to 90's at scene, Marlo at side, no head strike last night, alert and oriented. Medical / Surgical History (Last Updated 03/04/23 @ 14:40 by Zakia Lundberg) Fear of needles Obesity Allergic rhinitis, seasonal Spigelian hernia Hypertension Hyperlipidemia Chronic kidney disease Diabetes mellitus, type II Skin lesion Most Recent Vital Signs Temperature 36.4 C L 05/05/24 10:37 Temperature Source Oral 05/05/24 10:37 Pulse 64 05/05/24 13:47 Pulse 63 05/05/24 13:47 Respiratory Rate 17 05/05/24 13:47 Respiratory Effort Normal, Non-Labored 05/05/24 11:53 Respiratory Depth Normal 05/05/24 11:53 Respiratory Pattern Normal 05/05/24 11:53 Blood Pressure 90/53 L 05/05/24 13:47 Blood Pressure Mean 64 05/05/24 13:47 Blood Pressure Position Supine 05/05/24 10:37 Pulse Oximetry 96 05/05/24 13:47 Oxygen Delivery Method Room Air 05/05/24 10:37 Oxygen Flow Rate 0 05/05/24 10:37 Pain Level 5 05/05/24 10:37 Comment old head hematoma and right flank bruise 05/05/24 10:37 Allergies No Known Allergies Allergy (Verified 05/04/24 18:35) Precautions Isolation Standard precaution 05/05/24 10:45 IV IV Catheter Type [Right Peripheral IV Forearm] IV Catheter Gauge [Right 20 Forearm] Diagnostics 05/05/24 05/05/24 05/05/24 Range/Units 13:33 12:00 11:55 WBC (4.4-10.8) 10^3/uL RBC (3.93-5.22) 10^6/uL Hgb (11.2-15.7) g/dL Hct (36.0-46.0) % MCV (80-95) fL MCH (27.0-33.0) pg MCHC (32.0-36.0) % RDW (11.7-14.6) % Plt Count (130-400) 10^3/uL MPV (8.0-11.0) fL Reticulocyte % (Auto) 2.9 H (0.5-2.4) % Immature Gran % % Neutrophils % % Lymphocytes % % Monocytes % % Eosinophils % % Basophils % % Nucleated RBC % (0.0-0.3) % Absolute Neutrophils (1.2-6.7) 10^3/uL Absolute Lymphocytes (1.2-3.4) 10^3/uL Absolute Monocytes (0.1-0.8) 10^3/uL Absolute Eosinophils (0.0-0.7) 10^3/uL Absolute Basophils (0.0-0.2) 10^3/uL Sodium (136-145) mmol/L Potassium (3.5-5.1) mmol/L Chloride (98-107) mmol/L Carbon Dioxide (21.0-32.0) mmol/L Anion Gap (3-11) mmol/L BUN (7-18) mg/dL Creatinine (0.55-1.02) mg/dL Est GFR (CKD-EPI 2020) (mL/min/1.73m2) Glucose (74-106) mg/dL Hemoglobin A1c 6.4 H (<5.7) % Calcium (8.5-10.1) mg/dL Magnesium (1.8-2.4) mg/dL Iron 29 L (50-170) ug/dL TIBC 242 L (250-450) ug/dL Transferrin % Sat 12 L (15-50) % Ferritin (8-252) ng/mL Total Bilirubin (0.2-1.0) mg/dL AST (15-37) U/L ALT (14-59) U/L Alkaline Phosphatase (46-116) U/L Creatine Kinase (26-192) U/L Troponin I Cancelled 32 (<or=51) ng/L Total Protein (6.4-8.2) g/dL Albumin (3.4-5.0) g/dL Urine Color Yellow (Yellow) Urine Clarity Sl Cloudy (Clear) Urine pH 6.5 (5-8) Ur Specific [place] 1.015 (1.005-1.025) Urine Protein Negative (Neg-Trace) mg/dL Urine Ketones Negative (Negative) mg/dL Urine Blood Small H (Negative) Urine Nitrite Negative (Negative) Urine Bilirubin Negative (Negative) Urine Urobilinogen 0.2 (Up to 0.2) mg/dL Ur Leukocyte Esterase Small H (Negative) Urine RBC 5-10 H (0-2) HPF Urine WBC 20-50 H (0-5) HPF Ur Epithelial Cells Moderate (Negative) HPF Urine Crystals Negative (Negative) HPF Urine Bacteria Moderate (Negative) HPF Urine Casts 0-2 Hyaline (Negative) LPF Urine Mucus Negative (Negative) Ur Culture Indicated? No/Sq. Contamination Urine Glucose Negative (Negative) mg/dL Add-On Test Request 05/05/24 Range/Units 11:00 WBC 12.81 H (4.4-10.8) 10^3/uL RBC 3.51 L (3.93-5.22) 10^6/uL Hgb 9.5 L (11.2-15.7) g/dL Hct 30.3 L (36.0-46.0) % MCV 86 (80-95) fL MCH 27.1 (27.0-33.0) pg MCHC 31.4 L (32.0-36.0) % RDW 14.5 (11.7-14.6) % Plt Count 392 (130-400) 10^3/uL MPV 10.5 (8.0-11.0) fL Reticulocyte % (Auto) (0.5-2.4) % Immature Gran % 0.9 % Neutrophils % 73.1 % Lymphocytes % 17.4 % Monocytes % 7.9 % Eosinophils % 0.2 % Basophils % 0.5 % Nucleated RBC % 0.0 (0.0-0.3) % Absolute Neutrophils 9.36 H (1.2-6.7) 10^3/uL Absolute Lymphocytes 2.23 (1.2-3.4) 10^3/uL Absolute Monocytes 1.01 H (0.1-0.8) 10^3/uL Absolute Eosinophils 0.03 (0.0-0.7) 10^3/uL Absolute Basophils 0.06 (0.0-0.2) 10^3/uL Sodium 145 (136-145) mmol/L Potassium 3.0 L (3.5-5.1) mmol/L Chloride 97 L (98-107) mmol/L Carbon Dioxide 26.0 (21.0-32.0) mmol/L Anion Gap 22.0 H (3-11) mmol/L BUN 39 H (7-18) mg/dL Creatinine 3.9 H* D (0.55-1.02) mg/dL Est GFR (CKD-EPI 2020) 11.62 (mL/min/1.73m2) Glucose 166 H (74-106) mg/dL Hemoglobin A1c (<5.7) % Calcium 6.5 L (8.5-10.1) mg/dL Magnesium 0.9 L (1.8-2.4) mg/dL Iron (50-170) ug/dL TIBC (250-450) ug/dL Transferrin % Sat (15-50) % Ferritin > 2000 H (8-252) ng/mL Total Bilirubin 0.67 (0.2-1.0) mg/dL AST 81 H (15-37) U/L ALT 80 H (14-59) U/L Alkaline Phosphatase 127 H (46-116) U/L Creatine Kinase 149 (26-192) U/L Troponin I 41 (<or=51) ng/L Total Protein 7.1 (6.4-8.2) g/dL Albumin 2.9 L (3.4-5.0) g/dL Urine Color (Yellow) Urine Clarity (Clear) Urine pH (5-8) Ur Specific [place] (1.005-1.025) Urine Protein (Neg-Trace) mg/dL Urine Ketones (Negative) mg/dL Urine Blood (Negative) Urine Nitrite (Negative) Urine Bilirubin (Negative) Urine Urobilinogen (Up to 0.2) mg/dL Ur Leukocyte Esterase (Negative) Urine RBC (0-2) HPF Urine WBC (0-5) HPF Ur Epithelial Cells (Negative) HPF Urine Crystals (Negative) HPF Urine Bacteria (Negative) HPF Urine Casts (Negative) LPF Urine Mucus (Negative) Ur Culture Indicated? Urine Glucose (Negative) mg/dL Add-On Test Request DONE Intake and Output - 24 Hour Total 05/05/24 10:11 thru 05/05/24 14:14 Intake Total 1100 Balance 1100 Weight 113.398 kg Intake: IV 1100 Falls Risk Assessment History of Falls Previous History 05/05/24 10:46 Contributing Factors Unstable,Impairments, 05/05/24 10:46 Incontinence,Medications Ambulatory Aids Uses ambulatory device + 05/05/24 10:46 Tubes/Lines None 05/05/24 10:46 Gait Evaluation W/any additional score 05/05/24 10:46 Cognition No cognitive impairment 05/05/24 10:46 Fall Total Score 77 05/05/24 10:46 Level of Risk Maximum Risk 05/05/24 10:46 Problems (Last Updated 03/04/23 @ 14:40 by Zakia Lundberg) Generalized weakness (Acute) Anemia (Chronic) Hypomagnesemia (Acute) Acute hypokalemia (Acute) GERRY (acute kidney injury) (Acute) Blunt head trauma (Acute) v v v v v v v v v Sending and/or Receiving Nurses: Please use comment section below to note any information pertinent to the patient hand-off not included above. Information / Comment Returned to ER for dizziness/weakness from previous day. A&Ox3, scattered bruising to body, Previously on eliquis, 20G RFA, hx of DM, HTN, CDK, NKDA, Full Code. Report received from: Madina Turner RN in ER at 1550
[2024-05-05] MEDS: Potassium Chloride 20 MEQ TABCR PO (17:56)
[2024-05-05] MEDS: Normal Saline Flush 10 ML SYR IVP (20:40)
[2024-05-06] VITALS (14 sets, daily range): BP systolic 94–121; BP diastolic 44–74; PULSE 70–92; RESP 14–18; TEMP 36.1–37.2; O2SAT 94–100
--- NOTE | 2024-05-06 | DI.CT_ITS ---
Exam(s) CT ABDOMEN PELVIS WO EXAM: CT ABDOMEN PELVIS WO CLINICAL HISTORY: acute blood loss, on eliquis. TECHNIQUE: Imaging Protocol: Axial computed tomography images with coronal and sagittal reformatted images were created and reviewed. Oral: no COMPARISON: No exams were available for comparison FINDINGS: Lung Bases: No acute findings. Liver: Normal density. No suspicious mass. Gallbladder and biliary tract: No radiodense calculus or biliary dilation. Pancreas: Normal density. No abnormal calcifications or inflammatory process. Spleen: Normal. Kidneys: Normal size, contour and axis. No radiodense stones. No obstructive uropathy. No suspicious masses seen. Adrenal glands: No masses seen. Lymph nodes: Within normal limits. Vasculature: Abdominal aorta non-dilated. Soft tissues: Large hematoma in the subcutaneous fat of the posterior right flank region. The measur ements are approximately 18 x 5 by 12 cm. Additional extensive stranding in the fat of the right fla nk and lateral abdominal subcutaneous fat. Large hernia to the right of the umbilicus containing lo ops of small bowel as well as portion of the colon, extending to the level of the pelvis on the right . No evidence of obstruction. Smaller hernia to the left of the umbilicus containing a small portio n of nonobstructed transverse colon and fat. Bladder: Nearly empty. No wall thickening. No mass or calculi. Bowel: No obstruction or bowel wall thickening. Appendix normal. Peritoneal cavity: No ascites. No focal collection. No mesenteric inflammatory response. Reproductive organs: Somewhat linear density seen in cervix. Clinical correlation recommended. Smal l uterine fibroids. Bones: Prominent enthesophytes at the iliac wings. Degenerative changes in the spine. IMPRESSION: Acute appearing hematoma in the subcutaneous tissue of the right flank region. No acute intra-abdomi nal or pelvic hematoma. Large paraumbilical hernia containing loops of small bowel as well as colon. Small left-sided paraum bilical hernia containing a small portion of the transverse colon. RADIATION DOSE DELIVERED: Total DLP DATA REPOSITORY: All CT scans at this facility are submitted to the National Radiology Data Registry (NRDR) Dose Index Registry (DIR) with the [employer] (ACR). RADIATION OPTIMIZATION: All CT scans at this facility use at least one of these dose optimization te chniques: automated exposure control; mA and/or kV adjustment per patient size (includes targeted exa ms where dose is matched to clinical indication); or iterative reconstruction.
[2024-05-06] MEDS: Acetaminophen 325 MG TAB 650 MG PO ×2 (03:33→10:53)
[2024-05-06 06:24] LABS: Abs Immature Grans 0.07 10^3/uL (0.0-0.06); Absolute Basophil Count 0.04 10^3/uL (0.0-0.2); Absolute Eosinophil Count 0.22 10^3/uL (0.0-0.7); Absolute Monocyte Count 1.04 10^3/uL (0.1-0.8); Absolute Neutrophil Count 7.17 10^3/uL (1.2-6.7); Basophils % 0.4 %; Eosinophils % 2.1 %; Immature Grans % 0.7 %; Lymphocytes % 18.2 %; MCHC 31.9 % (32.0-36.0); MCV 85 fL (80-95); MPV 10.4 fL (8.0-11.0); Neutrophils % 68.6 %; Platelet Count 276 10^3/uL (130-400); RBC 2.48 10^6/uL (3.93-5.22); RDW 14.9 % (11.7-14.6); RDW-SD 45.7 fL; WBC 10.44 10^3/uL (4.4-10.8)
[2024-05-06 06:29] LABS: HGB 6.7 g/dL (11.2-15.7)
[2024-05-06 06:45] LABS: Anion Gap 11.6 mmol/L (3-11); BUN 43 mg/dL (7-18); CO2 28.4 mmol/L (21.0-32.0); CREATININE 3.5 mg/dL (0.55-1.02); Chloride 100 mmol/L (98-107); Estimated GFR 13.23 (mL/min/1.73m2); Glucose 118 mg/dL (74-106); Magnesium 2.1 mg/dL (1.8-2.4); Sodium 140 mmol/L (136-145)
[2024-05-06 06:48] LABS: Calcium 6.1 mg/dL (8.5-10.1)
[2024-05-06] MEDS: NIFEdipine-CR 30 MG TABCR PO (07:59)
[2024-05-06] MEDS: Multivitamin TAB 1 TAB PO (07:59)
[2024-05-06] MEDS: Calcium Carbonate 1.25 GM TAB PO (07:59)
[2024-05-06] MEDS: Potassium Chloride 20 MEQ TABCR 40 MEQ PO (07:59)
[2024-05-06] MEDS: Allopurinol 100 MG TAB PO (07:59)
[2024-05-06] MEDS: Bisoprolol 5 MG TAB 10 MG PO (07:59)
[2024-05-06] MEDS: Atorvastatin 40 MG TAB PO (07:59)
[2024-05-06] MEDS: Normal Saline Flush 10 ML SYR IVP ×2 (08:01→20:52)
[2024-05-06] MEDS: Potassium Chloride 20 MEQ TABCR PO ×3 (08:10→16:48)
--- NOTE | 2024-05-06 09:11 | PDOC.CMIN ---
Date of service: 05/06/24 Time of Service: 09:11 Care Management Initial Assmt Initial Assessment Reason for Hospitalization: GERRY, anemia, s/p fall Functional Status/Living Situation Patient Presentation: Myrtle was sitting up in the chair, talking with her , Laurent, receiving a unit of blood, when CM met with her. Myrtle is s/p a fall yesterday, from the 3rd step that leads into her house. She said she felt dizzy, and fell and hit her head. She does have a laceration on her scalp. She also has a very large hematoma on her hip, which Myrtle stated is the cause of her anemia. Myrtle and her were very pleasant, and engaged easily. Myrtle feels that she could use some PT when she is discharged, but is independent at baseline, but she had Medicare, and is not homebound. She is willing to go to outpatient PT, and has already been seen at [facility], previously She had been discharged from [facility] about a week ago, after being hospitalized for pneumonia. Town of Residence: [place] Resides with: Spouse (Laurent) Natural Supports: Laurent is her main support. They love spending time together. Employment Status: Retired Instrumental Activities of Daily Living (ADLs): Independent Activities/Hobbies/SocialSupport: Myrtle stated she has no real hobbies, but loves being retired. Medications Medication Management: No Issues/Barriers identified Physical Functioning/Mobility Assistive Device: Has been using a cane since being hospitalized for the pneumonia Advance Directives Advance Directives: Do you have an Advance Directive: Y 08/06/20 14:04 AD On File at [facility]: Y 05/04/24 19:59 Date Asked 05/04/24 05/04/24 19:59 AD Date Reviewed 05/04/24 05/04/24 19:59 COLST On File at [facility] No 05/04/24 18:35 COLST Date Scanned Code Status Resuscitation Status Full Code Insurance Coverage/Financial Issues Insurance: Medicare Cign[employer].U as MCR supplement Care Team Visit Care Team Role Provider Type Mark Muñiz MD Primary Care Provider NON-[facility] STAFF PHYSICIAN InPatient [facility] Other Providers OTHER Rochelle Rogers MD Emergency Provider [facility] STAFF PHYSICIAN Virgil Meier MD Admit Provider [facility] STAFF PHYSICIAN Attending Provider Discharge Potential Discharge Needs: PCP F/U Appt Anticipated Barriers to Discharge: None Identified Patient/Family Education Needs: Review discharge instructions, discuss Ask Me Three Transportation: Private vehicle Plan: Anticipate that Myrtle will be discharged home with a referral to outpatient PT. She will f/u with her community providers and continue per her plan of care. CM will continue to follow. PFSH All Active Problems (Updated 05/05/24 @ 17:20 by Alannah Davis NP) Discharge planning issues (Acute) Atrial fibrillation (Chronic) Hypertension (Chronic) Diabetes mellitus, type II (Acute) Generalized weakness (Acute) Anticoagulant long-term use (Acute) Anemia (Chronic) Prolonged Q-T interval on ECG (Acute) Hypomagnesemia (Acute) Acute hypokalemia (Acute) GERRY (acute kidney injury) (Acute) Blunt head trauma (Acute) Medical History (Updated 05/05/24 @ 17:20 by Alannah Davis NP) Fear of needles Obesity Allergic rhinitis, seasonal Spigelian hernia Hyperlipidemia Chronic kidney disease Skin lesion Social History Smoking/Tobacco Use Status: Never Smoking risk assessment performed?: Yes Alcohol Intake: current Alcohol Intake frequency: 0-2 drinks per day Drug use: Never Substance use type: does not use Housing: house Do you feel safe at home: Yes Do you feel safe in your relationship?: Yes Additional Social history: lives with Readmission Within the Past 30 Days Yes or No: No SDOH(Care Management) Screening Will the Patient Participate in the Screening?: Yes Do you worry about having a steady place to live?: no In the past 12 months, have you had to go without electric, gas, oil or water in your home?: no Have you or anyone in your house had to go without enough food to eat?: no Has lack of transportation kept you from medical appointments or from doing things needed for daily living?: no Has anyone in your support network made you feel unsafe for any reason?: no
--- NOTE | 2024-05-06 10:23 | IN_ITS ---
PT Notes Visit Reasons: acute kidney injury Inpatient Physical Therapy Evaluation Date: 05/06/2024 Referring Doctor: Alannah Davis PT Orders: PT CONSULT: Evaluation for safety potential discharge. Nonurgent. Precautions: Standard, fall Patient Profile/Admitting Diagnosis: This is a 74-year-old female patient with a past medical history of diabetes, hypertension, CKD, and use of Eliquis. She was seen in ED night after a fall down a few stairs, with a posterior scalp hematoma. She had a negative CT of her head and C-spine, states that she has not taken additional Eliquis since that time. She was transported home and states that she felt very weak after her visit, laid down on the floor and was unable to get up, and slept on the floor overnight. She states that she has not had much to eat or drink, has not passed urine, and call EMS this morning for feeling continued weakness. When EMS was able to get her up off the floor, she was able to stand and she felt slightly stronger. However, she noticed that she was feeling slightly lightheaded, with no loss of consciousness, vision changes, or headache. She was recently hospitalized in [facility] after she developed pneumonia while being on vacation. She states she was in the hospital approxim ately 2 weeks and was too weak to be discharged home so was sent to [facility] and rehab for further rehabilitation. She states that she was discharged from there to home approximately 1 week ago and was doing okay up until last night she states she walked up 3 steps to get into her breezeway and at the top lost her balance fell backwards striking her head on the floor. PMHX: PFSH All Active Problems (Updated 05/05/24 @ 17:20 by Alannah Davis NP) Discharge planning issues (Acute) Atrial fibrillation (Chronic) Hypertension (Chronic) Diabetes mellitus, type II (Acute) Generalized weakness (Acute) Anticoagulant long-term use (Acute) Anemia (Chronic) Prolonged Q-T interval on ECG (Acute) Hypomagnesemia (Acute) Acute hypokalemia (Acute) GERRY (acute kidney injury) (Acute) Blunt head trauma (Acute) Medical History (Updated 05/05/24 @ 17:20 by Alannah Davis NP) Fear of needles Obesity Allergic rhinitis, seasonal Spigelian hernia Hyperlipidemia Chronic kidney disease Skin lesion Social History/Home Situation: Lives with significant other in multilevel home with 3 stairs and railing upon entry. States that she lives essentially on the first floor and the only stairs she needs to negotiate the 3 into her house. Current Functional Limitations: Community distance ambulation Equipment Owned/DME: Cane. Used a cane occasionally at baseline. Subjective: Myrtle states she is slated for transfusion later this morning. Overall feeling good. Has not been up out of the chair for an hour or so. Admits that when she did stand last time she got lightheaded/dizzy. Denies any headache, dizziness in sitting or double vision. Mildly sore right hip from bruise due to fall. Objective: General Observation: IV port right upper extremity forearm. Sitting in bedside chair. Mental Status: Alert and oriented x 3, Pain: 2/10 right hip Vital Signs: Monitor and via nursing ROM: Right Upper Extremity: Glenohumeral joint flexion, abduction, elbow flexion, extension and wrist active range of motion within functional limits and pain- free Left Upper Extremity: Glenohumeral joint flexion, abduction, elbow flexion, extension and active wrist range of motion within functional limits and pain- free Right Lower Extremity: Hip flexion 105 degrees with mild discomfort iliac crest near bruise, abduction 35 degrees, knee flexion and extension within normal limits. Ankle active range of motion within functional limits. Left Lower Extremity: Hip flexion 110 pain-free, abduction 35 degrees, knee flexion and extension within normal limits. Ankle active range of motion within functional limits pain-free. Strength: Right Upper Extremity: 4/5 glenohumeral joint flexion, abduction, elbow flexion, extension. Good bank sales and service manager Left Upper Extremity: 4/5 glenohumeral joint flexion, elbow flexion, extension. 4 -/5 abduction pain-free. Good bank sales and service manager. Right Lower Extremity: Able to perform straight leg raise in reclined position. No extension lag. Hip flexion 4 -/5 bilateral, knee flexion 4-/5, knee extension 4/5. Good inversion and eversion 4/5. Plantarflexion and dorsiflexion 4+/5. Left Lower Extremity: Perform straight leg raise in reclined position. No extension lag. Hip flexion 4-/5, knee flexion 4-/5, knee extension 4/5. Ankle inversion and eversion 4/5, plantarflexion and dorsiflexion 4+/5. Sensation: Intact light touch bilateral lower extremities. Bed Mobility/Transfers: Sit?stand: Standby assist x 1 to front wheel walker Stand?sit: Standby assist x1 from front wheel walker Supine?sit: Independent per nursing Gait: Unable to assessed due to lightheadedness/dizziness prior to her transfusion. Balance: Static Sitting: Good Dynamic Sitting: Good Static Standing: Poor Dynamic Standing: Poor Special Tests: Mobility Limitations Standardized Measure [facility] AM-PAC 6 clicks Basic Mobility Inpatient Short Form: Raw Score: Think I evaluated bilateral above the seal is a great deal for medical leave they will have the same last name standardized Score: [] CMS Score: [] Informed Consent/Education: Patient instructed in purpose of PT consult and plan of care. Patient admitted secondary to fall with head laceration no loss of consciousness. Baseline level with cane for ambulation as needed. Unable to assess gait secondary to lightheadedness/dizziness. She was awaiting transfusion. Will need to evaluate gait and stair negotiation when more stable. She has 3 steps into her home and wants and she is essentially the same level. Her fall occurred on the stairs into her home. Patient presents with clinical signs and symptoms consistent with current/admitting diagnoses that have resulted to mobility limitations, gait instability, generalized weakness, and overall ADL decline as demonstrated by the following impairment level findings: 1. Decreased strength to B LE major muscle groups as before 2. Impaired activity tolerance 3. Impaired balance Impairments are contributing to the following functional limitations: 1. Decline in ambulation skills 2. Decline stair negotiation skills Patient is assessed as a 79962 moderate complexity based on the following: History: 74-year-old female with past medical history as indicated above Examination: Demonstrable impairment in strength, balance, and mobility level with underlying impairments and functional limitations as exhibited above as well as deficit score of 51% utilizing the [facility] Mobility Inpatient Short Form Presentation: Evolving Decision Makin moderate complexity Goals: Goals X1 week 1. Supine-Sit: Independent 2. Sit-Supine: Independent 3. Sit-Stand: Independent 4. Stand-Sit: Independent 5. Bed-Chair : Independent 6. Chair-Bed: Independent 7. Gait : 250 feet with standby assist and least required assistive device 8. Stairs: 3 stairs with railing Plan of Care/Treatment Plan: 1-2x/day, 7 days/week x 1 week. Plan of care has been reviewed with the NAIL SETTER providing the service under Physical Therapy direction. Initiate Physical Therapy intervention for strengthening, bed mobility, transfers, gait, stairs, balance training, use of assistive device. DISCHARGE RECOMMENDATIONS: [] [] Home with no services [] X Home with services [HHPT] [] Home with outpatient PT [] [] SNF for continued rehabilitation [] [] [facility] [] [] SNF versus LTC based on ability to participate and progress [] TREATMENT CODE/TIME: 63814: 1010?1035 Thank you for the opportunity to participate in the care of this patient. Virgil Baca PT, DPT Please sign an return this page within 30 days if you agree with the above POC. Thank you! Physician Signature Date [facility]
[2024-05-06] MEDS: diphenhydrAMINE 25 MG CAP PO (10:53)
[2024-05-06] MEDS: Insulin Aspart 300 UNITS/3 ML PEN SC ×2 (11:42→16:48)
--- NOTE | 2024-05-06 11:54 | DI.VRAD_ITS ---
PROCEDURE INFORMATION: Exam: CT Abdomen And Pelvis Without Contrast Exam date and time: 05/06/2024 9:54 AM Age: 74 years old Clinical indication: Other: Acute blood loss, on eliquis TECHNIQUE: Imaging protocol: Computed tomography of the abdomen and pelvis without contrast. COMPARISON: No relevant prior studies available. FINDINGS: Lungs: Bilateral lower lobe atelectasis. Heart: Mild cardiomegaly. Decreased density of the blood pool when compared to the myocardium, suggestive of anemia. Liver: Normal. No mass. Gallbladder and biliary ducts: Normal. No calcified stones. No ductal dilation. Pancreas: Normal. No ductal dilation. Spleen: Normal. No splenomegaly. Adrenal glands: Normal. No mass. Kidneys and ureters: Multifocal scarring of the right kidney. There is no evidence of hydronephrosis. Stomach and bowel: Diverticulosis of the sigmoid colon with no changes of diverticulitis. Anterior abdominal wall hernia containing the distal small bowel loops. No bowel obstruction. Appendix: No evidence of appendicitis. Intraperitoneal space: Unremarkable. No free air. No significant fluid collection. Vasculature: Vascular calcifications. Lymph nodes: Unremarkable. No enlarged lymph nodes. Urinary bladder: Unremarkable as visualized. Reproductive: Unremarkable as visualized. Bones/joints: Mild degenerative disease of the bilateral hip joints, bilateral sacroiliac joints and symphysis pubis. Mild curvature of the lumbar spine convex to the left. Bilateral L4-L5 and L5-S1 facet joint arthropathy. Posterior disc bulge at L4-L5 with mild bony canal stenosis. DISH changes in the lower thoracic spine. Soft tissues: There is a large right flank subcutaneous hematoma measuring 15.6 x 3.6 x 10.7 cm with surrounding subcutaneous fat stranding. IMPRESSION: 1. No intra-abdominal collections. 2. Right flank subcutaneous hematoma measuring 15.6 x 10.7 x 3.6 cm. 3. Large anterior abdominal wall hernia containing small bowel loops with no changes of bowel obstruction. Dictated and Authenticated by: Derrick Edmond MD. Ordering:JACY Jaffe MD
--- NOTE | 2024-05-06 17:14 | PGE_ITS ---
Date of Service Date of service: 05/06/24 Time of Service: 17:14 Assessment and Plan Assessment and plan (1) Acute blood loss anemia: Status: Acute Assessment and plan: Hemoglobin dropped to 6.7 this morning. Her vital signs have been stable. She has been consented and agrees to receive 2 units of packed red blood cells No evidence of ongoing bleeding CT of the abdomen and pelvis shows no intra-abdominal collections she does have a right flank subcutaneous hematoma Will repeat H&H in the a.m. Ice to affected area Continue to hold apixaban (2) GERRY (acute kidney injury): Status: Acute Assessment and plan: Creatinine found to be elevated at 3.9 on admission with baseline 1.1-1.4 suspect prerenal in the setting of poor p.o. intake received 1 L of normal saline in the emergency department and is able to take oral intake without any difficulty. Will continue to push p.o. fluids in the setting of IV fluid supply reduction Lasix and metformin placed on hold Will avoid nephrotoxic drugs renally dose as needed Creatinine improved today to 3.5 continue to follow (3) Hypomagnesemia: Status: Acute Assessment and plan: Mag level 0.9 and now improved to 2.1 after receiving 4 g of IV magnesium in the emergency department (4) Acute hypokalemia: Status: Acute Assessment and plan: Continue to replete and follow (5) Blunt head trauma: Status: Acute Assessment and plan: No loss of consciousness Head CT negative No concerning symptoms including headache, confusion, visual disturbance, etc. (6) Anemia: Status: Chronic Assessment and plan: See #1 Last hemoglobin and hematocrit in February 2023 was 12.6 and 39.2 today found to be 9.5 and 30.3 iron studies added, check stool for occult blood Does have significant bruising to right hip and is on Eliquis which has been on hold following her injury last night Hemodynamically stable will monitor for signs of acute bleeding Will continue to hold apixaban at this time until we have determine if this is an acute drop (7) Generalized weakness: Status: Acute Assessment and plan: Physical therapy consultation Possibly secondary to acute dehydration and GERRY (8) Diabetes mellitus, type II: Status: Acute Assessment and plan: Diabetic diet with sliding scale coverage before meals and at bedtime Metformin placed on hold in the setting of acute kidney injury Hemoglobin A1c added to ED labs (9) Hypertension: Status: Chronic Assessment and plan: Blood pressure is controlled continue nifedipine and bisoprolol Lasix will be placed on hold in the setting of dehydration/GERRY Adjust meds as needed Consider holding if evidence of acute bleeding, holding parameters on nifedipine if SBP less than 110 (10) Atrial fibrillation: Status: Chronic Assessment and plan: New onset of atrial fibrillation about 1 month ago found during a hospi talization for acute pneumonia. She is now in sinus rhythm Fully anticoagulated on apixaban which is now on hold following a head injury and drop in her hemoglobin and hematocrit from 12.6 and 39.2 in February 2023 now found to be 9.5 and 30.3 and now 6.7 this morning Continue bisoprolol 10 mg daily (11) Discharge planning issues: Status: Acute Assessment and plan: DVT prophylaxis-patient is fully anticoagulated on apixaban however this is on hold following her fall with head injury and now drop in her H&H. Teds and SCDs only Discharge planning-awaiting physical therapy consultation for discharge recommendations. Just discharged from rehab 1 week ago would be agreeable to go back if needed Discussed with Dr. Vizcarra Subjective Subjective Patient reports: no new complaints, tolerating liquids well, tolerating a regular diet and afebrile; denies shortness of breath Interval history since last seen: Patient has been getting out of bed ambulating sitting up in the chair. She states she feels better denies any further lightheadedness. She has had no chest pain or shortness of breath. She has been icing her right hip Exam Narrative Exam Narrative: Obese female of stated age in no acute distress does have a hematoma to the right parietal area. Eyes nonicteric noninjected EOMs are intact neurologic she is awake alert oriented no focal deficits she is a good historian. Her oromucosa is slightly dry improved from yesterday her neck is supple with full range of motion no JVD cardiovascular regular rate and rhythm respirations are even and unlabored abdomen is round soft nontender moves all extremities equally. She does have significant bruising to her right hip and elbow. No lesions noted psychiatric normal mood and affect Objective Last Vital Signs Temp 36.7 C 05/06/24 16:17 Pulse 81 05/06/24 16:17 Resp 15 05/06/24 16:17 BP 117/58 L 05/06/24 16:17 Pulse Ox 100 05/06/24 16:17 Laboratory Results - last 24 hr 05/06/24 05/06/24 06:16 08:36 WBC 10.44 RBC 2.48 L Hgb 6.7 L* D Hct 21.0 L MCV 85 MCH 27.0 MCHC 31.9 L RDW 14.9 H Plt Count 276 MPV 10.4 Immature Gran % 0.7 Neutrophils % 68.6 Lymphocytes % 18.2 Monocytes % 10.0 Eosinophils % 2.1 Basophils % 0.4 Nucleated RBC % 0.0 Absolute Neutrophils 7.17 H Absolute Lymphocytes 1.90 Absolute Monocytes 1.04 H Absolute Eosinophils 0.22 Absolute Basophils 0.04 Sodium 140 Potassium 3.0 L Chloride 100 Carbon Dioxide 28.4 Anion Gap 11.6 H BUN 43 H Creatinine 3.5 H Est GFR (CKD-EPI 2020) 13.23 Glucose 118 H Calcium 6.1 L* Magnesium 2.1 ABO/Rh O Positive Blood Type Recheck O Positive Antibody Screen NEGATIVE Crossmatch See Detail Time Spent with Patient Time Spent with Patient: 35-49 minutes Time was spent: preparing to see the patient(eg.review tests), obtaining and/or reviewing separately otained hiistory, ordering medications,tests, procedures, indepentently interpreting results and counseling the patient
[2024-05-07 04:51] VITALS: BP 120/64; PULSE 74; RESP 16; TEMP 36.6; O2SAT 96
[2024-05-07 06:58] LABS: Abs Immature Grans 0.07 10^3/uL (0.0-0.06); Absolute Basophil Count 0.05 10^3/uL (0.0-0.2); Absolute Eosinophil Count 0.25 10^3/uL (0.0-0.7); Absolute Lymphocyte Count 1.86 10^3/uL (1.2-3.4); Absolute Monocyte Count 0.95 10^3/uL (0.1-0.8); Absolute Neutrophil Count 6.14 10^3/uL (1.2-6.7); Basophils % 0.5 %; Eosinophils % 2.7 %; HCT 26.6 % (36.0-46.0); HGB 8.6 g/dL (11.2-15.7); Immature Grans % 0.8 %; MCH 27.9 pg (27.0-33.0); MCHC 32.3 % (32.0-36.0); MCV 86 fL (80-95); MPV 10.7 fL (8.0-11.0); Monocytes % 10.2 %; Neutrophils % 65.8 %; Nucleated RBC 0.3 % (0.0-0.3); Platelet Count 257 10^3/uL (130-400); RBC 3.08 10^6/uL (3.93-5.22); RDW 15.1 % (11.7-14.6); RDW-SD 46.5 fL; WBC 9.32 10^3/uL (4.4-10.8)
[2024-05-07 07:21] LABS: ALT 60 U/L (14-59); AST 40 U/L (15-37); Albumin 2.3 g/dL (3.4-5.0); Alkaline Phosphatase 104 U/L (46-116); Anion Gap 5.9 mmol/L (3-11); BUN 36 mg/dL (7-18); Bilirubin, Total 0.63 mg/dL (0.2-1.0); CO2 29.1 mmol/L (21.0-32.0); Calcium 6.9 mg/dL (8.5-10.1); Chloride 107 mmol/L (98-107); Estimated GFR 25.89 (mL/min/1.73m2); Glucose 108 mg/dL (74-106); Magnesium 1.9 mg/dL (1.8-2.4); Potassium 3.6 mmol/L (3.5-5.1); Sodium 142 mmol/L (136-145); Total Protein 5.8 g/dL (6.4-8.2)
[2024-05-07 07:46] VITALS: BP 131/60; PULSE 74; RESP 16; TEMP 37.4; O2SAT 96
[2024-05-07] MEDS: Allopurinol 100 MG TAB PO (08:50)
[2024-05-07] MEDS: Potassium Chloride 20 MEQ TABCR PO ×3 (08:50→16:38)
[2024-05-07] MEDS: Bisoprolol 5 MG TAB 10 MG PO (08:51)
[2024-05-07] MEDS: NIFEdipine-CR 30 MG TABCR PO (08:51)
[2024-05-07] MEDS: Multivitamin TAB 1 TAB PO (08:52)
[2024-05-07] MEDS: Atorvastatin 40 MG TAB PO (08:52)
[2024-05-07] MEDS: Normal Saline Flush 10 ML SYR IVP (09:36)
[2024-05-07] MEDS: Calcium Carbonate 1.25 GM TAB PO (09:37)
--- NOTE | 2024-05-07 10:08 | PDOC.CMPRO ---
Date of service: 05/07/24 Time of Service: 10:09 Care Management Progress Note Progress Note Text Progress Note Text: Myrtle was sitting up in the bedside chair talking with her ,Laurent, when CM met with her today. Myrtle's color looked better, and she stated feeling stronger. She was hopeful for discharged today, but hadn't seen the provider yet today. Myrtle has been working with PT, but does not feel that she needs outpatient PT. She worked on the stairs with PT, and feels confident that she can make it into her house, and then remain on one floor until she feels strong enough to go up and down the stairs to the second floor. Myrtle stated that she will practice on her steps at home, which have a railing, and just take it one day at a time. Laurent also agreed that this is a good plan, and neither are worried that Myrtle is not strong enough to go home. Discharge Potential Discharge Needs: PCP F/U Appt Anticipated Barriers to Discharge: None Identified Patient/Family Education Needs: Review discharge instructions, discuss Ask Me Three Transportation: Private vehicle (with Laurent) Plan: Anticipate that Myrtle will be discharged home no new services. She will f/u with her community providers and continue per her plan of care. CM will continue to follow. SDOH(Care Management) Screening Will the Patient Participate in the Screening?: Yes Do you worry about having a steady place to live?: no Problems where you live: other In the past 12 months, have you had to go without electric, gas, oil or water in your home?: no Have you or anyone in your house had to go without enough food to eat?: no Has lack of transportation kept you from medical appointments or from doing things needed for daily living?: no Has anyone in your support network made you feel unsafe for any reason?: no
--- NOTE | 2024-05-07 11:03 | PT.INTREAT ---
PT Notes Visit Reasons: acute kidney injury Inpatient Physical Therapy Treatment Note [facility] Date: 05-07-2024 PRECAUTIONS:Standard,IV access RUE SUBJECTIVE: Patient reports she is feeling much better she is no longer short of breath she denies dizziness. OBJECTIVE: Patient semireclined with significant other visiting. Patient with NASIM stockings in place however unable to don sneakers for ambulation due to edema bilateral lower extremities ? PAIN: Denied VITALS: ?Oxygen sats on room air 94% to 96% Therapeutic Activities ([id number][]): Direct one-on-one instruction in dynamic activities to improve functional performance. ?? Provided skilled cues and instruction on performance and technique throughout. Patient education regarding pacing and breathing techniques to maximize activity tolerance? BED MOBILITY/TRANSFERS? Rolling L/R: Independent Supine-sit: [Independent]? Sit-supine: Modified independent with increased time to get right lower extremity into bed ? Sit-stand: Supervision? Stand-sit: Supervision? Bed-Chair: Supervision with FWW or single-point cane? Chair-bed: Supervision with FWW or single-point cane? Ambulation:? -100 feet with FWW supervision reciprocal pattern? -100 feet x 1, 200 feet x 1 with single-point cane supervision wide base of support, excessive lateral weight shift STAIRS: 2 6 inch steps?x 2 trials with left rail ascending and single-point cane step to pattern CGA with cues for sequencing of cane ?Exercise : sit to stand without hands 5 reps, forward step up x 5 reps leading with R/L LE with BUE support to increase BLE strength? ASSESSMENT:? Pt demonstrates ability to ambulate with [facility] [place] with supervision. She requires cues for sequencing on the stairs with her cane. She demonstrates no LOB during ambulation with the SPC however demonstrates excessive lateral weight shift bilaterally with SPC. This resoved with use of FWW however pt does not have FWW at home and states she uses counter or furntiture as needed when fatigued. Pt demonstrates B Glute weakness and would benefit from further strengthening. PLAN:Pt would benefit from skilled PT 1-2 times per day for global strengthening, transfers, ambulation, pain management and balance facilitation TREATMENT CODE/TIME: 18033 x 17 minutes for 1 unit/0915?1032 DISCHARGE RECOMMENDATION: Home with HH PT versus outpatient PT
--- NOTE | 2024-05-07 13:04 | NUR.NOTE ---
Reviewed documentation with STOKER INSTALLER student, Naomie Santa LPN. Sharon Lopez, MSN, RNC-OB
--- NOTE | 2024-05-07 13:05 | NUR.NOTE ---
Reviewd documentation with BALL WORKER student, Naomie Santa. Sharon Lopez, MSN, RNC-OB
--- NOTE | 2024-05-07 14:09 | W.PM.PROGNOT ---
Date of Service Date of service: 05/07/24 Time of Service: 14:09 Objective Last Vital Signs Temp 37.4 C 05/07/24 07:46 Pulse 74 05/07/24 07:46 Resp 16 05/07/24 07:46 BP 131/60 05/07/24 07:46 Pulse Ox 96 05/07/24 07:46 Laboratory Results - last 24 hr 05/06/24 05/07/24 08:36 06:40 WBC 9.32 RBC 3.08 L Hgb 8.6 L Hct 26.6 L MCV 86 MCH 27.9 MCHC 32.3 RDW 15.1 H Plt Count 257 MPV 10.7 Immature Gran % 0.8 Neutrophils % 65.8 Lymphocytes % 20.0 Monocytes % 10.2 Eosinophils % 2.7 Basophils % 0.5 Nucleated RBC % 0.3 Absolute Neutrophils 6.14 Absolute Lymphocytes 1.86 Absolute Monocytes 0.95 H Absolute Eosinophils 0.25 Absolute Basophils 0.05 Sodium 142 Potassium 3.6 Chloride 107 Carbon Dioxide 29.1 Anion Gap 5.9 BUN 36 H Creatinine 2.0 H D Est GFR (CKD-EPI 2020) 25.89 Glucose 108 H Calcium 6.9 L Magnesium 1.9 Total Bilirubin 0.63 AST 40 H ALT 60 H Alkaline Phosphatase 104 Total Protein 5.8 L Albumin 2.3 L ABO/Rh O Positive Antibody Screen NEGATIVE Crossmatch See Detail
--- NOTE | 2024-05-07 14:25 | PT.INTREAT ---
PT Notes Visit Reasons: acute kidney injury Inpatient Physical Therapy Treatment Note [facility] Date: 05-07-2024 PRECAUTIONS:Standard,IV access RUE SUBJECTIVE: Patient continues to report she is feeling much better. She stated she is waiting for the PROSPECTING DRILLER HELPER to return to let her know how her lab values are and if she can go home today OBJECTIVE: Patient semireclined with significant other visiting. Patient with NASIM stockings in place however unable to don sneakers for ambulation due to edema bilateral lower extremities ? PAIN: Denied VITALS: ?Oxygen sats on room air 94% to 96% Therapeutic Activities (25432s): Direct one-on-one instruction in dynamic activities to improve functional performance. ?? Provided skilled cues and instruction on performance and technique throughout. Patient education regarding pacing and breathing techniques to maximize activity tolerance? BED MOBILITY/TRANSFERS? Rolling L/R: Independent Supine-sit: [Independent]? Sit-supine: Modified independent with increased time to get right lower extremity into bed ? Sit-stand: Independnet ? Stand-sit: independent? Bed-Chair: Supervision with single-point cane? Chair-bed: Supervision with single-point cane? Ambulation:?- 200 feet x 2with single-point cane supervision wide base of support, lateral weight shift STAIRS: 2 6 inch steps?x 2 trials with left rail ascending and single-point cane step to pattern CGA with cues for sequencing of cane ?Exercise : sit to stand without hands 5 reps, forward step up x 5 reps leading with R/L LE with BUE support to increase BLE strength? ASSESSMENT:? Pt with no loss of balance during session . Pt demonstrates stability on the stairs. with cane and railing. Pt at this time is declining to have HHPT services and out patient PT as she is concerned about having to do the stairs to get to appointments. PLAN:Pt would benefit from skilled PT 1-2 times per day for global strengthening, transfers, ambulation, pain management and balance facilitation TREATMENT CODE/TIME: 05363 x 15 minutes for 1 unit/[id number] DISCHARGE RECOMMENDATION: Home with HH PT versus outpatient PT
[2024-05-07 14:54] VITALS: BP 122/68; PULSE 76; RESP 16; TEMP 36.6; O2SAT 98
--- NOTE | 2024-05-07 15:53 | DSE_ITS ---
Date of service: 05/07/24 Time of Service: 15:53 DS: Diagnosis Discharge Diagnosis (1) Acute blood loss anemia: Status: Acute (2) GERRY (acute kidney injury): Status: Acute (3) Hypomagnesemia: Status: Resolved (4) Acute hypokalemia: Status: Resolved (5) Blunt head trauma: Status: Acute (6) Generalized weakness: Status: Acute Discharge Plan Disposition Patient Disposition: Home Condition: Improving Discharge Details Reason For Visit: acute kidney injury Admit Date/Time: 05/05/24 12:34 Admit Provider: Virgil Meier Attending Provider: Virgil Meier Primary Care Provider: Mark Muñiz Hospital Course Hospital Course: This 74-year-old female patient with a history of diabetes, hypertension, chronic kidney disease (CKD), and use of Eliquis (apixaban) was evaluated at the [facility] ED on 05/04/24 after a fall down a few stairs, resulting in a posterior scalp hematoma. She reported feeling weak after the fall, lay on the floor overnight, and called EMS the following morning for continued weakness. The patient fell while ascending three steps to her breezay, losing her balance and striking her head on the floor. She sustained a posterior scalp hematoma but denied loss of consciousness, headache, or vision changes. After the fall, she felt extremely weak, was unable to get up, and spent the night on the floor without eating, drinking, or urinating. The following morning, she called EMS due to persistent weakness. When EMS arrived, she was able to stand and reported feeling slightly stronger, though still lightheaded. A CT scan of her head and cervical spine was performed and was negative for any acute intracranial or spinal injury. The patient had not taken additional Jen bijal after the fall, and no new symptoms such as loss of consciousness or significant pain were reported. CT of the abdomen and pelvis showed no intra- abdominal fluid collections; she does have a right flank subcutaneous hematoma. The patient has a history of recent hospitalization for pneumonia in [place], [place], approximately 2 weeks ago, while on vacation. She was too weak to be discharged home after her hospitalization and was transferred to [facility] for further rehabilitation. She was discharged from rehabilitation about one week ago and was doing well until the fall. She was discharged from the ED and returned the next morning, 05/05/2024 with failure to manage independently at home. She was found to have electrolyte abnormalities and was placed on observation status on the medical floor for further testing and treatment. Hospital Course: * The patient remained hemodynamically stable throughout the course of her evaluation. * Vital signs were stable and within normal limits. * The posterior scalp hematoma was monitored without signs of progression or new findings. * CT scans of the head and C-spine were negative for any acute injury. * No signs of significant intracranial injury or cervical spine pathology were identified. * The patient's ongoing weakness and history of deconditioning, particularly post-pneumonia, were considered as contributing factors to the fall and her difficulty with mobility. * The patient's potassium was 3.0 on admission, repleted and 3.6 on day of discharge. * The patient's magnesium was 0.9 on admission, repleted and 1.9 on day of discharge. * The patient's creatinine was 3.9 on admission, up from baseline of 1.3; 2.0 on day of discharge. * The patient's hemoglobin fell to 6.7 and she was transfused with two units of PRBCs. Hemoglobin on day of discharge 8.6. * Patient was evaluated by PT and was recommended to be discharged to home with home health PT services. Patient is not homebound and is independent. She will continue to follow up with out patient PT. Discharge Medications: * Eliquis (apixaban): Discontinued * Furosemide: Discontinued * Potassium 20 mEq: Continue twice daily as prescribed Discharge Instructions: * Medication Instructions: * Discontinue Eliquis (apixaban) and furosemide as instructed (per last PCP clinic visit) * Continue potassium 20 mEq twice daily (per last PCP clinic visit) * Continue calcium supplementation * Consider magnesium supplementation * Activity Instructions: * Avoid sudden movements. Gradually increase activity levels as tolerated to improve strength and mobility. * Refrain from engaging in activities that may increase the risk of further falls, particularly on stairs. * Follow-up Care: * Labs to be checked on 05/09/2024 for reassessment of renal function and electrolytes (results to Dr. Muñiz). * Follow up with Dr. Muñiz or primary care provider for further management of chronic conditions and rehabilitation needs. * Emergency Instructions: * Seek immediate medical attention if there are signs of severe dizziness, weakness, or any other acute changes in her condition. * Monitor for signs of worsening weakness or any neurological symptoms such as headache, confusion, or difficulty with speech or movement. * Diet and Fluid Intake: * Encourage adequate hydration and nutrition to support recovery and prevent further deconditioning. Summary: The patient is a 74-year-old female with multiple chronic conditions, including diabetes, hypertension, CKD, and a history of atrial fibrillation on Eliquis. She experienced a fall after feeling weak, which led to a posterior scalp hematoma. There were no signs of significant head or neck injury on CT imaging, and she was stable throughout her hospital stay. Given her history of deconditioning post-pneumonia, her fall is likely related to both weakness and impaired mobility. She has been cleared for discharge with instructions to gradually increase her activity levels and follow up with her primary care physician. A follow-up appointment is arranged, and lab work will be done to monitor her electrolytes and kidney function. Discharge Diagnosis: * Scalp hematoma, resolved * Fall with posterior scalp hematoma * Deconditioning (post-pneumonia) * Hypertension * Chronic kidney disease (CKD) * Diabetes Home Meds and New Rx's Prescriptions: Continued multivitamin Tablet 1 tab PO DAILY calcium carbonate [Calcium 600] 600 mg calcium (1,500 mg) tablet 600 mg PO BID bisoprolol fumarate 10 mg tablet 10 mg PO DAILY atorvastatin 40 mg tablet 40 mg PO DAILY nifedipine 30 mg tablet extended release 60 mg PO HS Patient Comments: TAKE TWO TABLETS BY MOUTH EVERY EVENING AT BEDTIME colchicine 0.6 mg capsule 0.6 mg PO DAILY PRN Patient Comments: TAKE ONE CAPSULE BY MOUTH EVERY DAY allopurinol 100 mg tablet 100 mg PO DAILY Patient Comments: TAKE ONE TABLET BY MOUTH EVERY DAY potassium chloride 20 mEq tablet extended release 20 meq PO BID Patient Comments: confirmed by [facility] Discontinued Eliquis 5 mg tablet 5 mg PO BID Patient Comments: TAKE ONE TABLET BY MOUTH TWICE A DAY furosemide 40 mg tablet 40 mg PO DAILY Patient Comments: TAKE ONE TABLET BY MOUTH EVERY DAY No Action metformin 500 mg tablet extended release 24 hr 500 mg PO DAILY Discharge Instructions Instructions: Hypokalemia, Acute Kidney Injury (DC), Preventing falls in adults Additional Instructions: Stop taking Eliquis and Lasix. Take potassium 20 meq twice daily as previously prescribed by Dr. Muñiz. Have your labs checked on Tuesday05/09/2024. Start out patient PT with Dejan Lopez. Stand Alone Forms: Nursing Discharge Form Referrals: [facility] [Provider Group] (Patient recently discharged from [facility]; fall, continues to be weak. Not homebound. ) Mark Muñiz MD [Primary Care Provider] - 05/22/24 11:40 am (1-2 weeks post hospitalization visit. Hypokalemia; resumed potassium 20 meq BID; anemia s/t hematoma s/p fall; transfused; hypocalcemia; continue supplementation. Consider magnesium supplementation. BMP & CBC 05/[address] Muñiz.) Activity:: Activity as Tolerated Equipment/Supplies:: No Equipment Needed Diet:: As Tolerated Discharge Orders Discharge Orders: Discharge Order (Routine); Ordered 05/07/24 Ordered By: Chiquis Mcgregor Other Ambulatory Orders: Basic Metabolic Panel (Routine) Timeframe: 20240509 Facility: [facility] - Location: Laboratory Outpatient - [facility] Ordered By: Chiquis Mcgregor Complete Blood Count w/Diff (Routine) Timeframe: 20240509 Facility: [facility] - Location: Laboratory Outpatient - [facility] Ordered By: Chiquis Mcgregor Magnesium (Routine) Timeframe: 20240509 Facility: [facility] - Location: Laboratory Outpatient - [facility] Ordered By: Chiquis Mcgregor Discharge Data Discharge Date/Time-TO BE ENTERED AT DEPARTURE: 05/07/24 17:32 DS: Summary Time Spent with Patient providing and/or coordinating discharge services: Greater than 30 minutes Status at Discharge Functional status at discharge: uses cane/walker Overall status at discharge: patient is back to baseline Mental Status: mental status grossly normal Speech and Movement: speech and movement normal Mood: congruent mood Affect: normal affect Quality:SDOH Health Related Social Needs: No Data to Display Exam Narrative Exam Narrative: General: Patient appears appropriate for age, obese and lying in bed comfortably with her head in a 45 degree angle. She is alert and oriented to person and place. She is in no acute distress. HEENT: Normocephalic, eyes with pupils equal and reactive to light symmetrically, extraocular movement intact and sclera anicteric. Oropharynx with moist mucosa. Hemotoma to right parietal area, stable. Neck: Supple without JVD. Back: Without CVA tenderness. Lungs: Fair aeration clear to auscultation. Heart: Regular rate and rhythm with no murmurs or gallops appreciated. Abdomen: Obese contour, soft and nontender to palpation without palpable hepatosplenomegaly. Bowel sounds positive in all quadrants. Genitalia/rectal: Exam deferred. Extremities: Without clubbing, cyanosis or pitting edema. Good capillary refill Skin: Normal color, warm and dry. Neuro: Cranial nerves II through XII gross intact, no focalizing motor deficits. No tremor. Psych: Normal affect and mood. No abnormal thought processes. Remote and recent memory intact. Psych Mental Status: mental status grossly normal Speech and Movement: speech and movement normal Mood: congruent mood Affect: normal affect DS: Data Vitals/I&O Vitals and I&O: Vital Signs Temperature 36.6 C 05/07/24 14:54 Temperature Source Temporal Artery Scan 05/07/24 14:54 Pulse 76 05/07/24 14:54 Pulse Rhythm Regular 05/05/24 16:05 Pulse 67 05/05/24 15:46 Respiratory Rate 16 05/07/24 14:54 Respiratory Effort Normal 05/05/24 16:05 Respiratory Depth Normal 05/05/24 16:05 Respiratory Pattern Normal 05/05/24 16:05 Blood Pressure 122/68 05/07/24 14:54 Blood Pressure Mean 63 05/05/24 15:46 Blood Pressure Position Supine 05/05/24 10:37 Pulse Oximetry 98 05/07/24 14:54 Oxygen Delivery Method Room Air 05/07/24 14:54 Oxygen Flow Rate 0 05/07/24 14:54 Pain Level 0 05/07/24 14:54 Comment MAP = 80 05/07/24 04:51 Intake & Output 05/06/24 05/07/24 05/07/24 23:59 11:59 23:59 Intake Total 600 / 840 740 / 1220 480 / 1220 Output Total 400 / 600 200 / 600 Balance 600 / 840 340 / 620 280 / 620 Intake: Oral 740 / 1220 480 / 1220 Blood Product 600 / 600 Rbc Leuko Reduced Unit 300 / 300 [id number] Rbc Leuko Reduced Unit 300 / 300 [id number] Output: Urine 400 / 600 200 / 600 Other: Urine Color Yellow Yellow Yellow Urine Appearance Clear Cloudy Urine Odor Normal None Stool Size Moderate Moderate Stool Characteristics Soft Soft Formed Data Completed and Pending Labs on day of discharge: Labs from last 24 hours 05/07/24 05/06/24 06:40 08:36 WBC 9.32 RBC 3.08 L Hgb 8.6 L Hct 26.6 L MCV 86 MCH 27.9 MCHC 32.3 RDW 15.1 H Plt Count 257 MPV 10.7 Immature Gran % 0.8 Neutrophils % 65.8 Lymphocytes % 20.0 Monocytes % 10.2 Eosinophils % 2.7 Basophils % 0.5 Nucleated RBC % 0.3 Absolute Neutrophils 6.14 Absolute Lymphocytes 1.86 Absolute Monocytes 0.95 H Absolute Eosinophils 0.25 Absolute Basophils 0.05 Sodium 142 Potassium 3.6 Chloride 107 Carbon Dioxide 29.1 Anion Gap 5.9 BUN 36 H Creatinine 2.0 H D Est GFR (CKD-EPI 2020) 25.89 Glucose 108 H Calcium 6.9 L Magnesium 1.9 Total Bilirubin 0.63 AST 40 H ALT 60 H Alkaline Phosphatase 104 Total Protein 5.8 L Albumin 2.3 L Crossmatch See Detail PFSH All Active Problems (Updated 05/08/24 @ 00:09 by Aspida) Hypocalcemia (Acute) Acute blood loss anemia (Acute) Generalized weakness (Acute) Anticoagulant long-term use (Acute) Prolonged Q-T interval on ECG (Acute) GERRY (acute kidney injury) (Acute) Blunt head trauma (Acute) Medical History (Updated 05/08/24 @ 00:09 by Aspida) Atrial fibrillation Hypertension Diabetes mellitus, type II Fear of needles Obesity Allergic rhinitis, seasonal Spigelian hernia Hyperlipidemia Chronic kidney disease Skin lesion Social History Smoking/Tobacco Use Status: Never Smoking risk assessment performed?: Yes Alcohol Intake: current Alcohol Intake frequency: 0-2 drinks per day Drug use: Never Substance use type: does not use Housing: house Do you feel safe at home: Yes Do you feel safe in your relationship?: Yes Additional Social history: lives with Time Spent with Patient Time Spent with Patient: 45-69 minutes Time was spent: preparing to see the patient(eg.review tests), ordering medications,tests, procedures, referring, communicating with other health manager medicare, indepentently interpreting results, counseling the patient and care coordination
--- NOTE | 2024-05-07 16:49 | PDOC.CMDIS ---
Date of service: 05/07/24 Time of Service: 16:49 LACE Index Scoring Tool Questions: Length of Stay (in days): 2 Was the patient admitted via the E.D.?: Yes E.D. Visits: 1 Answers: Total Score: 6 Risk of Readmission: Low Risk Care Management Discharge Plan Reason for Hospitalization: s/p fall GERRY and anemia Discharge Plan: Myrtle is discharged home today with no new services. She has new orders to have her labs checked on 05/09 as outpatient. She is to stop taking her Eliquis and Lasix, and to start taking potassium. She will f/u with her PCP in 1-2 weeks, no appt was made for her as she was d/c after office hours. Myrtle will continue per her plan of care and transport home with her . Patient/Family Education Needs: Review of discharge instructions, activity, limitations, and Ask me 3. SDOH Health Related Social Needs: No Data to Display
== END 2024-05-07 17:32 | disposition home or self-care (01) | DRG 812 ==
LOC: ER 15:52 → MS 15:58
PROVIDERS: Nurse Practitioner Acute Care; Admitting Provider Family Medicine; Emergency Provider Emergency Medicine; PCP Family Medicine; Visit Provider Family Medicine
DX: D62 Acute posthemorrhagic anemia (principal); N17.9 Acute kidney failure, unspecified; E83.42 Hypomagnesemia; E87.6 Hypokalemia; R53.1 Weakness; I48.91 Unspecified atrial fibrillation; E83.51 Hypocalcemia; Z79.01 Long term (current) use of anticoagulants; R94.31 Abnormal electrocardiogram [ECG] [EKG]; Z79.84 Long term (current) use of oral hypoglycemic drugs; E11.22 Type 2 diabetes mellitus with diabetic chronic kidney disease; I12.9 Hypertensive chronic kidney disease with stage 1 through stage 4 chronic kidney disease, or unspecified chronic kidney disease; N18.9 Chronic kidney disease, unspecified; S00.03XA Contusion of scalp, initial encounter; W10.9XXA Fall (on) (from) unspecified stairs and steps, initial encounter; E86.0 Dehydration
CPT/HCPCS: 00123; 36415; 36430; 80048; 80053; 82550; 86850; 86900; 86901; 86920; 93005; 96365; 96366; 97161; 97530; 99285; 74176; 81003; 81015; 82272; 82728; 83036; 83540; 83550; 83735; 84484; 85025; 85045; 93010; 99222; 99232; 99239; J1815; J3475; P9016

== ENCOUNTER 2024-05-14 09:56 | Outpatient (CLI) | payer MEDICARE, SELFPAY | END 2024-05-14 09:57 | disposition home or self-care (01) | PROVIDERS: PCP Family Medicine; Visit Provider Family Medicine | DX: R42 Dizziness and giddiness (principal) | CPT/HCPCS: 93246 ==

== ENCOUNTER 2024-05-22 13:50 | Outpatient (REF) | payer MEDICARE, SELFPAY ==
[2024-05-22 21:51] LABS: HCT 33.3 % (36.0-46.0); MCH 27.7 pg (27.0-33.0); MCV 92 fL (80-95); MPV 10.3 fL (8.0-11.0); Platelet Count 399 10^3/uL (130-400); RBC 3.61 10^6/uL (3.93-5.22); RDW 15.6 % (11.7-14.6); RDW-SD 52.7 fL; WBC 8.42 10^3/uL (4.4-10.8)
[2024-05-22 22:02] LABS: ALT 19 U/L (14-59); AST 18 U/L (15-37); Albumin 3.2 g/dL (3.4-5.0); Alkaline Phosphatase 132 U/L (46-116); Anion Gap 7.2 mmol/L (3-11); BUN 18 mg/dL (7-18); Bilirubin, Total 0.66 mg/dL (0.2-1.0); CO2 28.8 mmol/L (21.0-32.0); CREATININE 1.1 mg/dL (0.55-1.02); Calcium 9.1 mg/dL (8.5-10.1); Chloride 107 mmol/L (98-107); Estimated GFR 53.06 (mL/min/1.73m2); Glucose 111 mg/dL (74-106); Magnesium 1.3 mg/dL (1.8-2.4); Potassium 4.3 mmol/L (3.5-5.1); Sodium 143 mmol/L (136-145); Total Protein 6.7 g/dL (6.4-8.2); Uric Acid 5.2 mg/dL (2.6-6.0)
[2024-05-22 22:14] LABS: COMMENT (LAB VIEW ONLY) 144.79 mg/dL; Microalb ug/mg Crea 32.9 ug/mg Cr
== END 2024-05-22 13:51 | disposition home or self-care (01) ==
LOC: NCHCN 13:50
PROVIDERS: PCP Family Medicine; Visit Provider Family Medicine
DX: N18.4 Chronic kidney disease, stage 4 (severe) (principal)
CPT/HCPCS: 80053; 85027; 82043; 82570; 83735; 84550

== ENCOUNTER 2024-06-05 07:07 | Outpatient (CLI) | payer MEDICARE, SELFPAY ==
--- NOTE | 2024-06-05 08:22 | W.CARDEVENT ---
Date of service: 06/05/24 Time of Service: 08:22 Cardiac Event Recorder Referring Provider:: Mark Muñiz Indications:: Unspecified atrial flutter Cardiac Event Note: This is a cardiac event monitor. Patient was monitored for 13 days and 2 hours Predominant rhythm was sinus with an average heart rate of 66. Minimum was 44, maximum 103 There were rare ventricular ectopic beats. There were rare couplets. Several brief runs of nonsustained ventricular tachycardia were seen. The longest of these was 4 beats in duration There were rare atrial premature beat. Self-limited atrial runs occurred. Generally 5-6 beats in duration. All were asymptomatic There was no atrial fibrillation, no high-grade AV block, no pauses greater than 3 seconds No symptoms were reported
== END 2024-06-05 07:08 | disposition home or self-care (01) ==
LOC: CARDOPNVT 07:07
PROVIDERS: PCP Family Medicine; Visit Provider Internal Medicine Cardiovascular Disease
DX: I48.92 Unspecified atrial flutter (principal); I47.20 Ventricular tachycardia, unspecified
CPT/HCPCS: 93248

== ENCOUNTER 2024-07-23 16:36 | Inpatient (IN) | payer MEDICARE, SELFPAY ==
[2024-07-23] VITALS (29 sets, daily range): BP systolic 136–235; BP diastolic 56–109; PULSE 52–77; RESP 15–31; TEMP 36.2–36.3; O2SAT 78–100
--- NOTE | 2024-07-23 17:15 | RT.EKG_ITS ---
APPROVED REPORT Exam: Resting ECG Reason for Exam: SOB Patient Location: E HR:61 bpm ECG Measurements Heart Rate 61 AXIS DC 161 P 61 QRSd 104 QRS 65 QT 448 T 38 QTc 452 Conclusion Sinus rhythm 61 normal aixs no stemi
--- NOTE | 2024-07-23 17:30 | DI.RAD_ITS ---
Exam(s) XR PORTABLE CHEST AP EXAM: XR PORTABLE CHEST AP CLINICAL HISTORY: Chest pain TECHNIQUE: 2D digital imaging was performed. COMPARISON: CT CT ABDOMEN PELVIS WO from 05/06/2024 FINDINGS: LUNGS: Clear. Moderate-sized left pleural effusion. Small right pleural effusion. HEART: Cardiac silhouette partially obscured by left pleural effusion. Prominence of pulmonary vascu lature and peribronchial thickening could indicate CHF. No focal area of consolidation visible. AORTA: Normal diameter. BONES: Unremarkable for age. Soft tissues: Unremarkable. IMPRESSION: Bilateral pleural effusions. Question CHF. DATA REPOSITORY: RADIATION DOSE DELIVERED:
[2024-07-23 17:37] LABS: Abs Immature Grans 0.04 10^3/uL (0.0-0.06); Absolute Basophil Count 0.05 10^3/uL (0.0-0.2); Absolute Eosinophil Count 0.15 10^3/uL (0.0-0.7); Absolute Lymphocyte Count 1.58 10^3/uL (1.2-3.4); Absolute Monocyte Count 1.03 10^3/uL (0.1-0.8); Absolute Neutrophil Count 7.82 10^3/uL (1.2-6.7); Basophils % 0.5 %; Eosinophils % 1.4 %; HCT 36.3 % (36.0-46.0); HGB 11.1 g/dL (11.2-15.7); Immature Grans % 0.4 %; Lymphocytes % 14.8 %; MCH 27.5 pg (27.0-33.0); MCHC 30.6 % (32.0-36.0); MCV 90 fL (80-95); MPV 9.9 fL (8.0-11.0); Monocytes % 9.7 %; Neutrophils % 73.2 %; Platelet Count 272 10^3/uL (130-400); RBC 4.03 10^6/uL (3.93-5.22); RDW 14.8 % (11.7-14.6); RDW-SD 49.1 fL; WBC 10.67 10^3/uL (4.4-10.8)
[2024-07-23 18:02] LABS: ALT 21 U/L (14-59); AST 12 U/L (15-37); Albumin 3.2 g/dL (3.4-5.0); Alkaline Phosphatase 95 U/L (46-116); BUN 26 mg/dL (7-18); Bilirubin, Total 0.46 mg/dL (0.2-1.0); Calcium 9.3 mg/dL (8.5-10.1); Chloride 108 mmol/L (98-107); Estimated GFR 59.49 (mL/min/1.73m2); Glucose 114 mg/dL (74-106); Magnesium 1.4 mg/dL (1.8-2.4); NT-proBNP 991 pg/mL (<300); Potassium 3.8 mmol/L (3.5-5.1); Sodium 145 mmol/L (136-145); Total Protein 6.8 g/dL (6.4-8.2); Troponin I 9 ng/L (<or=51)
[2024-07-23 18:10] LABS: D-Dimer 1178 ng/mlFEU (<500)
--- NOTE | 2024-07-23 18:15 | DI.CT_ITS ---
Exam(s) CT CHEST PE CTA EXAM: CT CHEST PE CTA CLINICAL HISTORY: dyspnea, ca, elevated ddimer. TECHNIQUE: Imaging Protocol: CT angiography of the chest was performed using pulmonary embolus toby col. Multi planar reconstructions were performed. CONTRAST MATERIAL: Intravenous: Omnipaque 350 Contrast volume: 85 cc COMPARISON: Chest x-ray 07/23/2024 FINDINGS: CHEST: PULMONARY ARTERIES: There are no intraluminal filling defects to suggest acute pulmonary emboli. LUNGS: There are moderate size bilateral pleural effusions. There is significant volume loss in the left lower lobe basal segments. There are increased markings throughout both lungs. Probable pulmon kathleen edema.. MEDIASTINUM: There is no significant hilar nor mediastinal adenopathy. Thyroid gland is diffusely enl arged with also substernal goiter noted. The enlarged thyroid gland narrows the trachea. CARDIAC: Cardiomegaly. Small amount of pericardial fluid evident.Caliber of the thoracic aorta is wi thin normal limits. No evidence of dissection. There is no significant shift of the interventricular septum. PARTIALLY VISUALIZED UPPERMOST ABDOMEN: No obvious findings OSSEOUS: No significant osseous lesions.No fractures.. IMPRESSION: 1. No evidence of acute pulmonary emboli. No evidence of pulmonary infarction.No evidence of aortic dissection. 2. Cardiomegaly. Increased bilateral lung markings and bilateral pleural effusions. Findings are mo st probably consistent with pulmonary edema. There is volume loss-partial collapse of the left lower lobe. 3. Enlarged thyroid gland and substernal goiter. RADIATION DOSE DELIVERED: 319.24mGy.cm Total DLP DATA REPOSITORY: All CT scans at this facility are submitted to the National Radiology Data Registry (NRDR) Dose Index Registry (DIR) with the [employer] (A[employer]). RADIATION OPTIMIZATION: All CT scans at this facility use at least one of these dose optimization te chniques: automated exposure control; mA and/or kV adjustment per patient size (includes targeted exa ms where dose is matched to clinical indication); or iterative reconstruction.
[2024-07-23] MEDS: Furosemide 40 MG/4 ML VIAL IVP ×2 (18:35→21:28)
[2024-07-23] MEDS: Magnesium Oxide 400 MG TAB 800 MG PO (18:35)
[2024-07-23] MEDS: MAGNESIUM SULFATE 2 GM/50 ML BAG IV_INF (18:35)
[2024-07-23 18:38] LABS: Troponin I 9 ng/L (<or=51)
[2024-07-23] MEDS: Omnipaque 350 MG/ML 100 ML BTL IJ (18:52)
[2024-07-23] MEDS: Normal Saline Flush 10 ML SYR IVP (18:53)
[2024-07-23] MEDS: Normal Saline - Diluent 50 ML VIAL IJ (18:53)
--- NOTE | 2024-07-23 20:33 | DI.VRAD_ITS ---
PROCEDURE INFORMATION: Exam: CTA Chest With Contrast Exam date and time: 07/23/2024 6:55 PM Age: 74 years old Clinical indication: Other: Dyspnea, CA, elevated ddimer TECHNIQUE: Imaging protocol: Computed tomographic angiography of the chest with contrast. Exam focused on the arteries. 3D rendering (Not supervised by radiologist): MIP and/or 3D reconstructed images were created by the technologist. Contrast material: OMNI 350; Contrast volume: 85 ml; Contrast route: INTRAVENOUS (IV); COMPARISON: CR XR PORTABLE CHEST AP 07/23/2024 5:42 PM FINDINGS: Pulmonary arteries: No pulmonary embolism. Aorta: No aortic dissection. No aneurysm. Mild plaque. Lungs: Dense opacity and volume loss are noted in the left lower lobe. Scattered ground-glass opacities present in both lungs. Peribronchial thickening is noted in the perihilar upper lobes and right lower lobe. Pleural spaces: Moderate bilateral pleural effusions layer dependently. No pneumothorax. Heart: Mild cardiomegaly. Moderate coronary artery calcifications. Mild pericardial effusion. Lymph nodes: Mild mediastinal lymphadenopathy. A right peribronchial lymph node measures 1.6 x 2.4 cm. Bones/joints: The thyroid is large, with substernal extension. There are no compression fractures. Ossification across the anterior longitudinal ligament is noted. The sternum is intact. The ribs are unremarkable. Moderate arthropathy is noted in the left shoulder. Soft tissues: Unremarkable. IMPRESSION: 1. No pulmonary embolism. 2. No aortic dissection. 3. Bilateral pleural effusions. 4. Diffuse bronchial inflammation/edema. 5. Probable atelectasis, left lower lobe. Pneumonia is not excluded. 6. Mild mediastinal lymphadenopathy. 7. Substernal goiter. Dictated and Authenticated by: Virgil Kendall MD. Ordering:BISHNU Duque MD
[2024-07-23 20:42] LABS: Troponin I 10 ng/L (<or=51)
--- NOTE | 2024-07-23 21:17 | W.ED.GENAD ---
Discharge Plan Disposition Patient Disposition: Admit to [facility] Condition: Serious Discharge Details Clinical Impression: Acute respiratory failure with hypoxia, Acute exacerbation of CHF (congestive heart failure), Pleural effusion due to congestive heart failure Primary Care Provider: Mark Muñiz ED Provider: Dunia Mcadams Home Meds and New Rx's Prescriptions: No Action multivitamin Tablet 1 tab PO DAILY calcium carbonate [Calcium 600] 600 mg calcium (1,500 mg) tablet 600 mg PO BID bisoprolol fumarate 10 mg tablet 10 mg PO DAILY atorvastatin 40 mg tablet 40 mg PO DAILY colchicine 0.6 mg capsule 0.6 mg PO DAILY PRN Patient Comments: TAKE ONE CAPSULE BY MOUTH EVERY DAY allopurinol 100 mg tablet 100 mg PO DAILY Patient Comments: TAKE ONE TABLET BY MOUTH EVERY DAY potassium chloride 20 mEq tablet extended release 20 meq PO BID Patient Comments: confirmed by [facility] amlodipine 10 mg tablet 10 mg PO DAILY omega 5-yql-qlz-fish oil [Fish Oil] 1,000 (120-180) mg capsule 1 cap PO BID magnesium oxide 400 mg magnesium tablet 400 mg PO BID Eliquis 5 mg tablet 5 mg PO BID HPI General Date/Time Provider Initiated Documentation: 07/23/24 16:40. HPI Narrative: This 74-year-old female with history of CKD, diabetes, hypertension, CHF, atrial fibrillation on chronic anticoagulation presents with report of worsening dyspnea. Patient reportedly stopped taking her Lasix the first week in May after she had electrolyte abnormality. She had hospitalization in [place] for pneumonia at the beginning of March and was hospitalized for approximately 2 weeks. She had a subsequent follow-up with her PCP and her electrolytes were found to be low and so she was taken off the Lasix at that time. She is been off Lasix since the first week in May per patient. She thinks she has had about a 12 pound weight gain and has progressively become more dyspneic with any sort of exertion which is unusual for her. She denies history of COPD or asthma she denies any cough. She has been experiencing some orthopnea. She is unsure as to whether or not she had a prior echocardiogram she denies any associated chest discomfort and she has had some peripheral edema. Related Data Home Medications ?Medication ?Instructions ?Recorded ?Confirmed atorvastatin 40 mg tablet 40 mg PO DAILY 03/04/23 07/23/24 bisoprolol fumarate 10 mg tablet 10 mg PO DAILY 03/04/23 07/23/24 calcium carbonate (Calcium 600) 600 mg PO BID 03/04/23 07/23/24 multivitamin 1 tab PO DAILY 03/04/23 07/23/24 allopurinol 100 mg tablet 100 mg PO DAILY 05/04/24 07/23/24 colchicine 0.6 mg capsule 0.6 mg PO DAILY PRN 05/04/24 07/23/24 potassium chloride 20 mEq 20 meq PO BID 05/04/24 07/23/24 tablet,extended release amlodipine 10 mg tablet 10 mg PO DAILY 07/23/24 07/23/24 apixaban 5 mg tablet (Eliquis) 5 mg PO BID 07/23/24 07/23/24 magnesium oxide 400 mg PO BID 07/23/24 07/23/24 omega 2-nrk-ymr-fish oil 1,000 mg 1 cap PO BID 07/23/24 07/23/24 (120 mg-180 mg) capsule (Fish Oil) Allergies Allergy/AdvReac Type Severity Reaction Status Date / Time No Known Allergies Allergy Verified 07/23/24 16:50 General Stated Complaint: SOB CARLO: 3 Exam Narrative Exam Narrative: This 74-year-old female presents with acute dyspnea, peripheral edema, no ascites, diminished lung sounds bilaterally crackles at bases, alert and oriented x 4, sinus rhythm, no murmur Course Vital Signs Vital signs: Vital Signs Temperature 36.3 C L 07/23/24 16:37 Pulse 71 07/23/24 16:37 Respiratory Rate 28 H 07/23/24 16:37 Blood Pressure 187/75 H 07/23/24 16:37 Pulse Oximetry 97 07/23/24 16:37 Temperature 36.3 C L 07/23/24 16:45 Pulse 52 L 07/23/24 21:01 Pulse 54 L 07/23/24 21:01 Respiratory Rate 31 H 07/23/24 20:30 Respiratory Effort Short of Breath 07/23/24 16:49 Respiratory Depth Normal 07/23/24 16:49 Respiratory Pattern Normal 07/23/24 16:49 Blood Pressure 136/58 L 07/23/24 21:01 Blood Pressure Mean 84 07/23/24 21:01 Blood Pressure Position Sitting 07/23/24 16:45 Pulse Oximetry 98 07/23/24 21:01 Oxygen Delivery Method Nasal Cannula 07/23/24 18:00 Oxygen Flow Rate 2 07/23/24 18:00 Pain Level 0 07/23/24 16:45 Lab/Test Results Lab/Test Results: Laboratory Tests Range/Units 07/23/24 07/23/24 07/23/24 17:22 18:17 20:20 WBC (4.4-10.8) 10^3/uL 10.67 RBC (3.93-5.22) 10^6/uL 4.03 Hgb (11.2-15.7) g/dL 11.1 L Hct (36.0-46.0) % 36.3 MCV (80-95) fL 90 MCH (27.0-33.0) pg 27.5 MCHC (32.0-36.0) % 30.6 L RDW (11.7-14.6) % 14.8 H Plt Count (130-400) 10^3/uL 272 MPV (8.0-11.0) fL 9.9 Immature Gran % % 0.4 Neutrophils % % 73.2 Lymphocytes % % 14.8 Monocytes % % 9.7 Eosinophils % % 1.4 Basophils % % 0.5 Nucleated RBC % (0.0-0.3) % 0.0 Absolute Neutrophils (1.2-6.7) 10^3/uL 7.82 H Absolute Lymphocytes (1.2-3.4) 10^3/uL 1.58 Absolute Monocytes (0.1-0.8) 10^3/uL 1.03 H Absolute Eosinophils (0.0-0.7) 10^3/uL 0.15 Absolute Basophils (0.0-0.2) 10^3/uL 0.05 D-Dimer (<500) ng/mlFEU 1178 H Sodium (136-145) mmol/L 145 Potassium (3.5-5.1) mmol/L 3.8 Chloride (98-107) mmol/L 108 H Carbon Dioxide (21.0-32.0) mmol/L 32.0 Anion Gap (3-11) mmol/L 5.0 BUN (7-18) mg/dL 26 H Creatinine (0.55-1.02) mg/dL 1.0 Est GFR (CKD-EPI 2020) (mL/min/1.73m2) 59.49 Glucose (74-106) mg/dL 114 H Calcium (8.5-10.1) mg/dL 9.3 Magnesium (1.8-2.4) mg/dL 1.4 L Total Bilirubin (0.2-1.0) mg/dL 0.46 AST (15-37) U/L 12 L ALT (14-59) U/L 21 Alkaline Phosphatase (46-116) U/L 95 Troponin I (<or=51) ng/L 9 9 10 NT-Pro-B Natriuret Pep (<300) pg/mL 991 H Total Protein (6.4-8.2) g/dL 6.8 Albumin (3.4-5.0) g/dL 3.2 L Medical Decision Making 74-year-old female presenting with mild respiratory distress, dyspneic with speech, oxygen 89 to 92% on room air initially. Was given 40 mg of Lasix pending CTA chest x-ray. D-dimer was elevated and patient does have a cancer history so I did order CTA PE, there is evidence of bilateral pleural effusions. Patient has urinated twice, however unfortunately we are unable to measure the amount of output. She denies any chest pain she has had 2 negative troponins. BNP is 999 we do not have prior to compare to. Magnesium was 1.5, patient was given 2 g of IV mag and 800 mg p.o. mag. Interval electrolytes within normal limits. Secondary to pleural effusions remaining dyspnea and hypoxia, patient requires admission to the hospital secondary to decompensated likely heart failure in the presence of removal of Lasix from her regimen. Case discussed with admitting hospitalist, Dr. Fraser will accept patient to his service. Quality:[facility] Health Related Social Needs: No Data to Display Critical Care Time Critical Care Time Attestation: 40 minutes of critical care time secondary to acute hypoxic respiratory failure in the presence of likely CHF requiring IV Lasix, intake and output monitoring, diagnostic lab interpretation and review, repletion of hypomagnesemia, diagnostic imaging interpretation review, admission to the hospital and oxygen supplementation PFSH All Active Problems (Updated 07/23/24 @ 22:57 by NAOMI Foy) Acute respiratory failure with hypoxia (Acute) Pleural effusion due to congestive heart failure (Acute) Acute exacerbation of CHF (congestive heart failure) (Acute) Hypocalcemia (Acute) Generalized weakness (Acute) Anticoagulant long-term use (Acute) Prolonged Q-T interval on ECG (Acute) Blunt head trauma (Acute) Medical History (Updated 07/23/24 @ 22:57 by NAOMI Foy) Acute blood loss anemia Atrial fibrillation Hypertension Diabetes mellitus, type II Fear of needles Obesity Allergic rhinitis, seasonal Spigelian hernia Hyperlipidemia Chronic kidney disease Skin lesion Social History Smoking/Tobacco Use Status: Never Smoking risk assessment performed?: Yes Alcohol Intake: current Alcohol Intake frequency: 0-2 drinks per day Drug use: Never Substance use type: does not use Housing: house Do you feel safe at home: Yes Do you feel safe in your relationship?: Yes Additional Social history: lives with PAWSS Have you Been Recently Intoxicated or Drunk Within the Last 30 days?: No Have you Ever Experienced Previous Episodes of Alcohol Withdrawal?: No Have you ever Experienced Withdrawal Seizures?: No Have you ever Experienced Delirium Tremens(DT)s?: No Have you ever undergone Alcohol Rehabilitation Treatment (i.e, inpt ot outpatient treatment programs)?: No Have you ever Experienced Blackouts?: No Have you ever Combined Alcohol with other Downers within the last 90 days?: No Have you ever Combined Alcohol with any other Substance of Abuse during the last 90 days?: No Positive Blood Alcohol level on Presentation? [PCS.BAL]: No Evidence of Increased Autonomic Activity (i.e. HR>120, tremor, sweating, agitation, nausea)?: No Result: 0
--- NOTE | 2024-07-23 21:23 | W.PM.HP.N ---
Date of service: 07/23/24 Time of Service: 21:23 Assessment and Plan Assessment and plan (1) Acute exacerbation of CHF (congestive heart failure): Status: Acute Assessment and plan: -patient presented with progressively worsening shortness of breath, found to have elevated pBNP of ~900, acute hypoxic respiratory failure and bilateral pleural effusions on CXR and CT -patient states she had echo done at outside hospital but records unavailable at this time -given 40mg IV lasix in ED with improvement in symptoms, additional 40mg IV ordered -will continue 40mg IV lasix BID -f/u AM echo (2) Pleural effusion due to congestive heart failure: Status: Acute Assessment and plan: -presumed 2/2 acute exacerbation of CHF as noted above (3) Acute respiratory failure with hypoxia: Status: Acute Assessment and plan: -secondary to acute exacerbation of CHF and pleural effusions as noted above -SpO2 down to 78% in ED, required up to 2L NC, now down to 1L NC s/p first dose of 40mg IV lasix -wean O2 as tolerated with goal SpO2 >92% (4) Hypertension: Assessment and plan: -continue home amlodipine (5) Atrial fibrillation: Assessment and plan: -continue home bisoprolol and eliquis (6) Chronic kidney disease: Assessment and plan: -history of, though Cr currently at 1 which is below baseline from hospitalization at [facility] in May History of Present Illness History of Present Illness Chief Complaint: shortness of breath Narrative: 74-year-old female with a past medical history of CKD, NIDDM, hypertension, heart failure, A-fib on Eliquis who presented emergency department complaints of worsening shortness of breath. Patient states that she stopped taking Lasix first week in May after she was admitted to [facility] and reportedly had electrolyte abnormalities that did not require subsequent Lasix since that time. However, over the last 2 weeks she has noticed an increase in weight of about 12 pounds of progressively worsening shortness of breath particularly with exertion. Additionally she also noted some shortness of breath when laying flat but denied any cough, chest pain, lightheadedness or dizziness. In the emergency department the patient was noted as being hypertensive with initial blood pressure up to 210 systolic, with normal heart rate in the 60s, respiratory rate in the high 20s, and an oxygen saturation of 78% on room air that improved to the mid 90s with 2 L nasal cannula. CBC was unremarkable, CT abdomen PE was remarkable for creatinine lower than her baseline for CKD of 1.0 but was otherwise unremarkable. Chest x-ray and chest CT were performed both showed bilateral pleural effusions without any or other acute abnormalities. While in the emergency department the patient was given 80 mg of IV Lasix in emergency room PA riaz hospitalist for admission for patient with acute exacerbation of congestive heart failure with bilateral pleural effusions and acute hypoxic respiratory failure. Review of Systems All systems reviewed & are unremarkable except as noted in HPI and below PFSH All Active Problems (Updated 07/23/24 @ 22:57 by NAOMI Foy) Acute respiratory failure with hypoxia (Acute) Pleural effusion due to congestive heart failure (Acute) Acute exacerbation of CHF (congestive heart failure) (Acute) Hypocalcemia (Acute) Generalized weakness (Acute) Anticoagulant long-term use (Acute) Prolonged Q-T interval on ECG (Acute) Blunt head trauma (Acute) Medical History (Updated 07/23/24 @ 22:57 by NAOMI Foy) Acute blood loss anemia Atrial fibrillation Hypertension Diabetes mellitus, type II Fear of needles Obesity Allergic rhinitis, seasonal Spigelian hernia Hyperlipidemia Chronic kidney disease Skin lesion Social History Smoking/Tobacco Use Status: Never Smoking risk assessment performed?: Yes Alcohol Intake: current Alcohol Intake frequency: 0-2 drinks per day Drug use: Never Substance use type: does not use Housing: house Do you feel safe at home: Yes Do you feel safe in your relationship?: Yes Additional Social history: lives with Meds Allergies and Home Medications Allergies Allergy/AdvReac Type Severity Reaction Status Date / Time No Known Allergies Allergy Verified 07/23/24 16:50 Home Medications ?Medication ?Instructions ?Recorded ?Confirmed ?Type atorvastatin 40 mg tablet 40 mg PO DAILY 03/04/23 07/23/24 History bisoprolol fumarate 10 mg tablet 10 mg PO DAILY 03/04/23 07/23/24 History calcium carbonate (Calcium 600) 600 mg PO BID 03/04/23 07/23/24 History multivitamin 1 tab PO DAILY 03/04/23 07/23/24 History allopurinol 100 mg tablet 100 mg PO DAILY 05/04/24 07/23/24 History colchicine 0.6 mg capsule 0.6 mg PO DAILY PRN 05/04/24 07/23/24 History potassium chloride 20 mEq 20 meq PO BID 05/04/24 07/23/24 History tablet,extended release amlodipine 10 mg tablet 10 mg PO DAILY 07/23/24 07/23/24 History apixaban 5 mg tablet (Eliquis) 5 mg PO BID 07/23/24 07/23/24 History magnesium oxide 400 mg PO BID 07/23/24 07/23/24 History omega 6-ccy-nlj-fish oil 1,000 mg 1 cap PO BID 07/23/24 07/23/24 History (120 mg-180 mg) capsule (Fish Oil) Exam Narrative Exam Narrative: Well-appearing female laying in bed in no acute distress, ANO x 4, heart regular rhythm, lungs with diminished breath sounds at bilateral bases, abdomen soft, nontender, nondistended Results Labs 07/24/24 05:50 07/24/24 05:50 Labs: Laboratory Results - last 24 hr 07/23/24 07/23/24 07/23/24 17:22 18:17 20:20 WBC 10.67 RBC 4.03 Hgb 11.1 L Hct 36.3 MCV 90 MCH 27.5 MCHC 30.6 L RDW 14.8 H Plt Count 272 MPV 9.9 Immature Gran % 0.4 Neutrophils % 73.2 Lymphocytes % 14.8 Monocytes % 9.7 Eosinophils % 1.4 Basophils % 0.5 Nucleated RBC % 0.0 Absolute Neutrophils 7.82 H Absolute Lymphocytes 1.58 Absolute Monocytes 1.03 H Absolute Eosinophils 0.15 Absolute Basophils 0.05 D-Dimer 1178 H Sodium 145 Potassium 3.8 Chloride 108 H Carbon Dioxide 32.0 Anion Gap 5.0 BUN 26 H Creatinine 1.0 Est GFR (CKD-EPI 2020) 59.49 Glucose 114 H Calcium 9.3 Magnesium 1.4 L Total Bilirubin 0.46 AST 12 L ALT 21 Alkaline Phosphatase 95 Troponin I 9 9 10 NT-Pro-B Natriuret Pep 991 H Total Protein 6.8 Albumin 3.2 L Last Vital Signs Temp 97.3 F L 07/23/24 16:45 Pulse 52 L 07/23/24 21:01 Resp 31 H 07/23/24 20:30 BP 136/58 L 07/23/24 21:01 Pulse Ox 98 07/23/24 21:01 PAWSS Have you Been Recently Intoxicated or Drunk Within the Last 30 days?: No Have you Ever Experienced Previous Episodes of Alcohol Withdrawal?: No Have you ever Experienced Withdrawal Seizures?: No Have you ever Experienced Delirium Tremens(DT)s?: No Have you ever undergone Alcohol Rehabilitation Treatment (i.e, inpt ot outpatient treatment programs)?: No Have you ever Experienced Blackouts?: No Have you ever Combined Alcohol with other Downers within the last 90 days?: No Have you ever Combined Alcohol with any other Substance of Abuse during the last 90 days?: No Positive Blood Alcohol level on Presentation? [PCS.BAL]: No Evidence of Increased Autonomic Activity (i.e. HR>120, tremor, sweating, agitation, nausea)?: No Result: 0 Time Spent Time spent with Patient: >75 minutes Time was spent: preparing to see the patient(eg.review tests), obtaining and/or reviewing separately otained hiistory, ordering medications,tests, procedures, referring, communicating with other health interior plant caretaker, indepentently interpreting results, counseling the patient and care coordination
--- NOTE | 2024-07-23 22:52 | W.PC.ACHO ---
Registration Status: Primary Language: Preferred Language: ED Information & Data Chief Complaint SOB 07/23/24 21:20 Triage Note had previous been on lasix, 07/23/24 16:37 low potassium. stopped due to over diuretics in early june. came in to see primary today and gained 12lbs. 70 on room air. placed on 2l at 93. denies chest pain. since tuesday SOb with exertion per pt. Medical / Surgical History (Last Updated 03/04/23 @ 14:40 by Zakia Lundberg) Acute blood loss anemia Atrial fibrillation Hypertension Diabetes mellitus, type II Fear of needles Obesity Allergic rhinitis, seasonal Spigelian hernia Hyperlipidemia Chronic kidney disease Skin lesion Most Recent Vital Signs Temperature 36.3 C L 07/23/24 16:45 Pulse 52 L 07/23/24 21:01 Pulse 54 L 07/23/24 21:01 Respiratory Rate 31 H 07/23/24 20:30 Respiratory Effort Short of Breath 07/23/24 16:49 Respiratory Depth Normal 07/23/24 16:49 Respiratory Pattern Normal 07/23/24 16:49 Blood Pressure 136/58 L 07/23/24 21:01 Blood Pressure Mean 84 07/23/24 21:01 Blood Pressure Position Sitting 07/23/24 16:45 Pulse Oximetry 98 07/23/24 21:01 Oxygen Delivery Method Nasal Cannula 07/23/24 18:00 Oxygen Flow Rate 2 07/23/24 18:00 Pain Level 0 07/23/24 16:45 Allergies No Known Allergies Allergy (Verified 07/23/24 16:50) Precautions Isolation PUI 07/23/24 16:46 Active Medications Generic Name Dose Route Start Last Admin Trade Name Keaganq PRN Reason Stop Dose Admin Iohexol 100 ml 07/23/24 19:00 07/23/24 18:52 Omnipaque 350 Mg/Ml 100 Ml Btl IJ 08/22/24 23:59 85 ml DIRECTED RESHMA Administration Sodium Chloride 0 ml 07/23/24 17:29 07/23/24 18:53 Normal Saline Flush 10 Ml Syr IVP 10 ml PRN PRN Administration Sodium Chloride 50 ml 07/23/24 19:00 07/23/24 18:53 Normal Saline - Diluent 50 Ml Vial IJ 50 ml .FOR DI USE RESHMA Administration IV IV Catheter Type [Right Diffusics Forearm] IV Catheter Type [Right Saline Lock Antecubital] IV Catheter Type [Left Saline Lock Antecubital] IV Catheter Gauge [Right 20 Forearm] IV Catheter Gauge [Right 18 Antecubital] IV Catheter Gauge [Left 20 Antecubital] Diagnostics 07/23/24 07/23/24 07/23/24 Range/Units 20:20 18:17 17:22 WBC 10.67 (4.4-10.8) 10^3/uL RBC 4.03 (3.93-5.22) 10^6/uL Hgb 11.1 L (11.2-15.7) g/dL Hct 36.3 (36.0-46.0) % MCV 90 (80-95) fL MCH 27.5 (27.0-33.0) pg MCHC 30.6 L (32.0-36.0) % RDW 14.8 H (11.7-14.6) % Plt Count 272 (130-400) 10^3/uL MPV 9.9 (8.0-11.0) fL Immature Gran % 0.4 % Neutrophils % 73.2 % Lymphocytes % 14.8 % Monocytes % 9.7 % Eosinophils % 1.4 % Basophils % 0.5 % Nucleated RBC % 0.0 (0.0-0.3) % Absolute Neutrophils 7.82 H (1.2-6.7) 10^3/uL Absolute Lymphocytes 1.58 (1.2-3.4) 10^3/uL Absolute Monocytes 1.03 H (0.1-0.8) 10^3/uL Absolute Eosinophils 0.15 (0.0-0.7) 10^3/uL Absolute Basophils 0.05 (0.0-0.2) 10^3/uL D-Dimer 1178 H (<500) ng/mlFEU Sodium 145 (136-145) mmol/L Potassium 3.8 (3.5-5.1) mmol/L Chloride 108 H (98-107) mmol/L Carbon Dioxide 32.0 (21.0-32.0) mmol/L Anion Gap 5.0 (3-11) mmol/L BUN 26 H (7-18) mg/dL Creatinine 1.0 (0.55-1.02) mg/dL Est GFR (CKD-EPI 2020) 59.49 (mL/min/1.73m2) Glucose 114 H (74-106) mg/dL Calcium 9.3 (8.5-10.1) mg/dL Magnesium 1.4 L (1.8-2.4) mg/dL Total Bilirubin 0.46 (0.2-1.0) mg/dL AST 12 L (15-37) U/L ALT 21 (14-59) U/L Alkaline Phosphatase 95 (46-116) U/L Troponin I 10 9 9 (<or=51) ng/L NT-Pro-B Natriuret Pep 991 H (<300) pg/mL Total Protein 6.8 (6.4-8.2) g/dL Albumin 3.2 L (3.4-5.0) g/dL Intake and Output - 24 Hour Total 07/23/24 16:21 thru 07/23/24 22:09 Intake Total 50 Balance 50 Weight 115.3 kg Intake: IV 50 Other: # Voids 2 Falls Risk Assessment History of Falls Previous History 07/23/24 16:47 Contributing Factors No Factors 07/23/24 16:47 Ambulatory Aids Uses ambulatory device 07/23/24 16:47 Tubes/Lines None 07/23/24 16:47 Gait Evaluation No gait disturbance 07/23/24 16:47 Cognition No cognitive impairment 07/23/24 16:47 Fall Total Score 30 07/23/24 16:47 Level of Risk Moderate Risk 07/23/24 16:47 Problems (Last Updated 03/04/23 @ 14:40 by Zakia Lundberg) Acute respiratory failure with hypoxia (Acute) Pleural effusion due to congestive heart failure (Acute) Acute exacerbation of CHF (congestive heart failure) (Acute) v v v v v v v v v Sending and/or Receiving Nurses: Please use comment section below to note any information pertinent to the patient hand-off not included above. Information / Comments: 97% on RA VSS, bilateral pleural effusions. Pt received 80mg IVP lasix, mag replenished. Diffusic in right forearm Report received from: Familia Donaldson RN
[2024-07-24] MEDS: Normal Saline Flush 10 ML SYR IVP ×3 (00:07→20:26)
[2024-07-24 02:52] VITALS: BP 141/58; PULSE 56; RESP 18; TEMP 36.8; O2SAT 97
[2024-07-24 06:29] LABS: HCT 34.9 % (36.0-46.0); HGB 11.2 g/dL (11.2-15.7); MCH 27.8 pg (27.0-33.0); MCHC 32.1 % (32.0-36.0); MCV 87 fL (80-95); MPV 10.4 fL (8.0-11.0); Platelet Count 282 10^3/uL (130-400); RBC 4.03 10^6/uL (3.93-5.22); RDW 14.9 % (11.7-14.6); RDW-SD 47.7 fL; WBC 9.66 10^3/uL (4.4-10.8)
[2024-07-24 06:39] LABS: Anion Gap 3.6 mmol/L (3-11); BUN 22 mg/dL (7-18); CO2 36.4 mmol/L (21.0-32.0); CREATININE 1.1 mg/dL (0.55-1.02); Calcium 9.3 mg/dL (8.5-10.1); Chloride 106 mmol/L (98-107); Estimated GFR 53.06 (mL/min/1.73m2); Glucose 99 mg/dL (74-106); Magnesium 1.8 mg/dL (1.8-2.4); Potassium 3.4 mmol/L (3.5-5.1); Sodium 146 mmol/L (136-145)
[2024-07-24 07:47] VITALS: BP 139/54; PULSE 59; RESP 20; TEMP 36.9; O2SAT 96
--- NOTE | 2024-07-24 08:00 | DI.US_ITS ---
APPROVED REPORT EXAM: Comprehensive 2D, Doppler, and color-flow Echocardiogram Patient Location: In-Patient Room/Bed: [address] Operator: Dee Brizuela RDCS (AE) Indications: Acute exacerbation of CHF Other Information Study Quality: Adequate. Technically limited study due to body habitus. Conclusion Left ventricle is borderline dilated. Ejection fraction is 60%. Wall motion is normal Normal right ventricular size and function Mildly enlarged left atrium. Right atrial size is normal There are no structural valvular abnormalities Mild mitral regurgitation Trace to mild tricuspid regurgitation. Estimated right ventricular systolic pressure is 50 mmHg Small pericardial effusion Wall motion Left Ventricle Left ventricle is mildly dilated. The left ventricular systolic function is normal. The left ventricu lar ejection fraction is within the normal range. There is normal left ventricular wall thickness. Th ere is normal LV segmental wall motion. There is no ventricular septal defect visualized. LVEF is 60% . Right Ventricle Right ventricle is grossly normal in size. Right ventricular systolic function is grossly normal. Atria Left atrium is mildly dilated. The right atrium size is normal. The interatrial septum is intact with no evidence for an atrial septal defect. Aortic Valve The aortic valve is normal in structure. Aortic valve is trileaflet. There is no aortic valvular sten osis. No aortic regurgitation is present. Mitral Valve The mitral valve is normal in structure. No evidence of mitral valve stenosis. Mild mitral regurgita tion. Tricuspid Valve The tricuspid valve is normal in structure. There is no tricuspid valve stenosis. Trace to mild tric uspid regurgitation. The RVSP is 49.7 mmHg. Pulmonic Valve The pulmonary valve is normal in structure. There is no pulmonic valvular stenosis. Trace pulmonic re gurgitation. Great Vessels The aortic root is normal in size. The ascending aorta is normal in size. Aortic arch is not well vis ualized. IVC is normal in size and collapses >50% with inspiration. Pericardium Mild circumferential pericardial effusion. 2D Dimensions IVSD d PLAX 0.90 cm F: 0.6-1.0 Ao Root d 2.69 cm F: 2.7 - 3.3 LVPW d PLAX 0.90 cm F: 0.6 - 1.0 Ao Asc Diam d 3.08 cm F: 2.3 - 3.1 LVID d PLAX 5.75 cm F: 3.8 - 5.2 LVDs 3.87 cm F: 2.2 - 3.5 LV EF Teichholz 60.4 % FS 32.72 % LV EDV (Teich) 163.0 mL LV ESV (Teich) 64.5 mL M-Mode TAPSE 2.81 cm (M/F) >1.7 Auto EF LV EDV A4C 130.7 mL LV EDV A2C 149.5 mL LV EDV BP 140.1 mL LV ESV A4C 52.6 mL LV ESV A2C 60.4 mL LV ESV BP 55.7 mL LVEF(%) A4C 59.8 % LVEF(%) A2C 59.6 % LVEF(%) BP 60.3 % LV SV A4C 78.2 ml LV SV A2C 89.1 ml LV SV BP 84.4 ml LV CO A4C 4.3 L/min LV CO A2C 5.5 L/min LV CO BP 4.9 L/min HR A4C 55.63 BPM HR A2C 61.22 BPM LV EDV Index (BP) LA Volume LA Length A4C 6.4 cm LA Length A2C 6.8 cm LA Area A4C s 22.25 cm2 LA Area A2C s 27.21 cm2 LA Vol A4C A-L 65.77 mL LA Vol A2C A-L 92.18 mL LA Vol Biplane A-L 80.4 mL LA Vol/BSA A4C A-L LA Vol/BSA A2C A-L LA Vol/BSA BP A-L 37.1 mL/m2 LA Vol A4C MOD 60.9 mL LA Vol A2C MOD 85.6 mL LA Vol BP MOD 74.5 mL RA Volume RA Area A4C 15.7 cm2 RA ESV A4C (A-L) 36.1mL RA Vol/BSA A4C A-L RA Length A4C 5.8 cm RA ESV A4C (MOD) 34.7mL LV Diastology MV E Vmax 1.25 (0.4-1.3 m/s) MV A Vmax 0.80 (0.4-1.3 m/s) E/A Ratio 1.6 Aortic Valve AoV Vmax 1.79 m/s LVOT Vmax 1.55 m/s AoV Peak Grad 12.8 mmHg LVOT Peak Grad 9.6 mmHg AoV Area (Vmax) 2.41 cm2 LVOT VTI 0.375 m AoV VTI 0.405 m LVOT Mean Grad 5.8 mmHg AoV Mean Shaw. 1.16 m/s LVOT SV 104.30 mL AoV Mean Grad 6.2 mmHg LVOT Diam s 1.85 cm AoV Area (VTI) 2.57 cm2 AV Regurg Peak Gr. 12.81 mmHg Velocity Ratio 0.87 Mitral Valve MV DT 229 (160-240 msec) MV Vmax TIPS 1.34 m/s MV Mean Grad 2.3 (<2mmHg) MV VTI 0.466 m Pulmonary Valve PV Vmax 1.07 (0.5-1.5 m/s) RVOT Vmax 1.08 m/s PV Peak Grad 4.5 mmHg RVOT Peak Gr. 4.6 mmHg PV Mean Shaw 0.78 m/s RVOT VTI 0.277 m PV Mean Grad 2.7 mmHg RVOT Mean Gr. 2.7 mmHg Tricuspid Valve RA Pressure 3.00 mmHg TR Vmax 3.42 m/s TR Peak Grad 46.7 mmHg RVSP (TR) 49.7 mmHg
--- NOTE | 2024-07-24 08:47 | PDOC.CMIN ---
Date of service: 07/24/24 Time of Service: 08:47 Care Management Initial Assmt Initial Assessment Reason for Hospitalization: CHF Functional Status/Living Situation Patient Presentation: Myrtle was sitting up in a chair visiting with her when CM met with her. She was very engaged and pleasant in interaction. Myrtle was admitted with newly diagnosed CHF. She reported that in March she developed pneumonia with shortness of breath and when she got sick this time she thought she had pneumonia again. She does not have a good understanding of her diagnosis and the healthcare implications. CM reached out to cardiac Rehab to see if one of the cardiac rehab nurses would be able to meet with her to begin education. A message was left. Myrtle lives in [place] with her Laurent. They do not have any children. Myrtle has a sister out of [facility] and they have close neighbors who are very supportive. 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 She is independent at baseline and uses a cane on the stairs for ambulatory assistance. Town of Residence: [place] Resides with: Spouse (Laurent) Significant Other/Family: Out of area (sister out of state) Employment Status: Retired Instrumental Activities of Daily Living (ADLs): Independent Medications Medication Management: No Issues/Barriers identified Physical Functioning/Mobility Assistive Device: cane Advance Directives Advance Directives: Do you have an Advance Directive: Y 08/06/20 14:04 AD On File at [facility]: Y 05/04/24 19:59 Date Asked 07/23/24 07/23/24 16:39 AD Date Reviewed 07/23/24 07/23/24 22:57 COLST On File at [facility] No 05/04/24 18:35 COLST Date Scanned Code Status Resuscitation Status Full Code Portal Pt does not currently have a portal and education provided: Yes Insurance Coverage/Financial Issues Insurance: [employer] Medicare replacement Care Team Visit Care Team Role Provider Type Mark Muñiz MD Primary Care Provider NON-[facility] STAFF PHYSICIAN NAOMI Foy Emergency Provider [facility] [employer] Mario Fraser MD Admit Provider [facility] STAFF PHYSICIAN Attending Provider Discharge Potential Discharge Needs: PCP F/U Appt and Other (Cardiology) Anticipated Barriers to Discharge: None Identified Patient/Family Education Needs: Review discharge instructions, discuss Ask Me Three Transportation: Private vehicle Plan: Anticipate Myrtle will be discharged home, possibly with new home health services for nursing, when medically stable. She will follow up with her community providers and plan of care and transport with family. CM will follow and continue to support discharge planning efforts. Social Determinants of Health Screening Social Determinants of Health last assessed: 07/24/24 Will the Patient Participate in the Screening?: Yes Do you worry about having a steady place to live?: no Problems where you live: no known problems In the past 12 months, have you had to go without electric, gas, oil or water in your home?: no Have you or anyone in your house had to go without enough food to eat?: no Has lack of transportation kept you from medical appointments or from doing things needed for daily living?: no Has anyone in your life made you feel unsafe or unsupported?: no How hard is it for you to pay for the very basics like food, housing, medical care, and heating? Would you say it is:: Not hard at all Do you want help finding or keeping work or a job?: I do not need or want help If for any reason you need help with day-to-day activities such as bathing, preparing meals, shopping, managing finances, etc., do you get the help you need?: I don?t need any help How often do you feel lonely or isolated from those around you?: Never Do you speak a language other than Yi at home?: No Does the patient want assistance with any of the above?: No PFSH All Active Problems (Updated 07/24/24 @ 12:57 by Jen Godinez APRN) Hypokalemia (Acute) Acute respiratory failure with hypoxia (Acute) Pleural effusion due to congestive heart failure (Acute) Acute exacerbation of CHF (congestive heart failure) (Acute) Hypocalcemia (Acute) Generalized weakness (Acute) Anticoagulant long-term use (Acute) Prolonged Q-T interval on ECG (Acute) Blunt head trauma (Acute) Medical History (Updated 07/24/24 @ 12:57 by Jen Godinez APRN) Acute blood loss anemia Atrial fibrillation Hypertension Diabetes mellitus, type II Fear of needles Obesity Allergic rhinitis, seasonal Spigelian hernia Hyperlipidemia Chronic kidney disease Skin lesion Social History Smoking/Tobacco Use Status: Never Smoking risk assessment performed?: Yes Alcohol Intake: current Alcohol Intake frequency: 0-2 drinks per day Drug use: Never Substance use type: does not use Housing: house Do you feel safe at home: Yes Do you feel safe in your relationship?: Yes Additional Social history: lives with
[2024-07-24] MEDS: Atorvastatin 40 MG TAB PO (10:28)
[2024-07-24] MEDS: amLODIPine 10 MG TAB PO (10:29)
[2024-07-24] MEDS: Multivitamin TAB 1 TAB PO (10:29)
[2024-07-24] MEDS: Magnesium Oxide 400 MG TAB PO ×2 (10:29→20:24)
[2024-07-24] MEDS: Apixaban 5 MG TAB PO ×2 (10:29→20:24)
[2024-07-24] MEDS: Omega-3 Fatty Acids 1000 MG CAP PO ×2 (10:29→20:24)
[2024-07-24] MEDS: Potassium Chloride 20 MEQ TABCR PO ×2 (10:30→20:24)
[2024-07-24] MEDS: Furosemide 40 MG/4 ML VIAL IVP ×2 (10:31→16:55)
[2024-07-24 10:53] VITALS: BP 151/62; PULSE 57; RESP 20; TEMP 36.7; O2SAT 100
[2024-07-24 11:53] VITALS: O2SAT 97
--- NOTE | 2024-07-24 12:36 | W.PM.PROGNOT ---
Date of Service Date of service: 07/24/24 Time of Service: 12:36 Assessment and Plan Assessment and plan (1) Acute exacerbation of CHF (congestive heart failure): Status: Acute Assessment and plan: -Improved shortness of breath this AM, still requiring O2 supplementation Presented on 07/23 with worsening SOB with elevated pBNP of ~900, acute hypoxic respiratory failure and bilateral pleural effusions on CXR and CT -As per previous hospitalist note patient stated she had echo done at outside hospital but records unavailable at this time -given 40mg IV lasix in ED with improvement in symptoms, additional 40mg IV ordered -Continue 40mg IV lasix BID then consider oral transition in AM -Echo completed with the following results: Conclusion Left ventricle is borderline dilated. Ejection fraction is 60%. Wall motion is normal Normal right ventricular size and function Mildly enlarged left atrium. Right atrial size is normal There are no structural valvular abnormalities Mild mitral regurgitation Trace to mild tricuspid regurgitation. Estimated right ventricular systolic pressure is 50 mmHg Small pericardial effusion With pericardial effusion in the setting of pulmonary HTN evidenced by RVSP of 50 mmHg, the patient might benefit from a pulmonary medicine as well as cardiology referrals at discharge. (2) Pleural effusion due to congestive heart failure: Status: Acute Assessment and plan: Continue to monitor and as above -presumed 2/2 acute exacerbation of CHF as noted above (3) Acute respiratory failure with hypoxia: Status: Acute Assessment and plan: -Most likely due to acute exacerbation of CHF and pleural effusions as noted above -Still on 1 L via nasal cannula of oxygen ?initially presenting to the ED with SpO2 down to 78% for which the patient required up to 2L NC, now down to 1L NC s/p first dose of 40mg IV lasix -Continue to wean O2 as tolerated with goal SpO2 >92% -Physical therapy consult (4) Hypertension: Assessment and plan: -Continue home CCB: The patient is on amlodipine 10 mg daily which is also indicated in the treatment of pulmonary hypertension (5) Atrial fibrillation: Assessment and plan: -Continue home dose of bisoprolol and eliquis -Was cardioverted once in 2023 without recurrence since then -Continue telemetry monitoring?rhythm is normal sinus rhythm heart rate 62 without ectopy as per telemetry strip (6) Chronic kidney disease: Assessment and plan: -History of, though Cr currently at around 1 which is below baseline from hospitalization at [facility] in May when max creatinine was up to 3.9 during episode of pneumonia -Will continue to monitor -BMP in the morning (7) Hypokalemia: Status: Acute Assessment and plan: In the setting of acute CHF exacerbation with IV Lasix treatment will continue home dose potassium and add oral supplementation x 1 to replenish potassium level reading at 3.4 this morning BMP in the morning (8) Hypomagnesemia: Status: Resolved Assessment and plan: Magnesium at 1.4 on admission day; supplementation provided and now resolved with mag level at 1.8. In the setting of IV push Lasix we will continue to monitor magnesium level. (9) Contraindication to deep vein thrombosis (DVT) prophylaxis: Status: Acute Assessment and plan: On DOAC for atrial fibrillation, is not a candidate for pharmacological DVT prophylaxis No further need for mechanical DVT prophylaxis (10) Discharge planning issues: Status: Acute Assessment and plan: Most likely to discharge when back to baseline Physical therapy recommendation for discharge pending Still as new oxygen requirement Consider referral to pulmonology versus cardiology at discharge Discussed with Dr. Israel Subjective Subjective Patient reports: feels better, tolerating liquids well, tolerating a regular diet, no flatus, no bowel movement (last 1-2 days ago- reports that she will take PRN docusate at HS if needed) and shortness of breath (decreased); denies nausea, vomiting or fever Exam Narrative Exam Narrative: Constitutional The patient is sitting in chair, eating lunch, spouse at bedside In no acute distress HENMT: Facial structures with normal appearance Neuro:alert and oriented X3; non focal. Resp: Normal respiratory pattern, speaks in full sentences, unlabored breathing, clear lung bilaterally with decreased bases Cardio: regular rhythm, S1, S2, no murmur, positive to all 4 extremities, bilateral lower extremity edema 1+ GI: Abdomen is not distended, soft and non tender, bowel sounds are present : Negative Costovertebral angle tenderness Back/spine/Pelvis: No back tenderness, normal alignment Integumentary: No skin lesions or rash to exposed skin Extremities: strength 5/5 to bilateral lower and upper extremities Psych: RASS 0, congruent mood and normal affect. Objective Last Vital Signs Temp 36.7 C 07/24/24 10:53 Pulse 57 L 07/24/24 10:53 Resp 20 07/24/24 10:53 BP 151/62 H 07/24/24 10:53 Pulse Ox 100 07/24/24 10:53 Laboratory Results - last 24 hr 07/23/24 07/23/24 07/23/24 17:22 18:17 20:20 WBC 10.67 RBC 4.03 Hgb 11.1 L Hct 36.3 MCV 90 MCH 27.5 MCHC 30.6 L RDW 14.8 H Plt Count 272 MPV 9.9 Immature Gran % 0.4 Neutrophils % 73.2 Lymphocytes % 14.8 Monocytes % 9.7 Eosinophils % 1.4 Basophils % 0.5 Nucleated RBC % 0.0 Absolute Neutrophils 7.82 H Absolute Lymphocytes 1.58 Absolute Monocytes 1.03 H Absolute Eosinophils 0.15 Absolute Basophils 0.05 D-Dimer 1178 H Sodium 145 Potassium 3.8 Chloride 108 H Carbon Dioxide 32.0 Anion Gap 5.0 BUN 26 H Creatinine 1.0 Est GFR (CKD-EPI 2020) 59.49 Glucose 114 H Calcium 9.3 Magnesium 1.4 L Total Bilirubin 0.46 AST 12 L ALT 21 Alkaline Phosphatase 95 Troponin I 9 9 10 NT-Pro-B Natriuret Pep 991 H Total Protein 6.8 Albumin 3.2 L 07/24/24 05:50 WBC 9.66 RBC 4.03 Hgb 11.2 Hct 34.9 L MCV 87 MCH 27.8 MCHC 32.1 RDW 14.9 H Plt Count 282 MPV 10.4 Immature Gran % Neutrophils % Lymphocytes % Monocytes % Eosinophils % Basophils % Nucleated RBC % Absolute Neutrophils Absolute Lymphocytes Absolute Monocytes Absolute Eosinophils Absolute Basophils D-Dimer Sodium 146 H Potassium 3.4 L Chloride 106 Carbon Dioxide 36.4 H Anion Gap 3.6 BUN 22 H Creatinine 1.1 H Est GFR (CKD-EPI 2020) 53.06 Glucose 99 Calcium 9.3 Magnesium 1.8 Total Bilirubin AST ALT Alkaline Phosphatase Troponin I NT-Pro-B Natriuret Pep Total Protein Albumin PAWSS Have you Been Recently Intoxicated or Drunk Within the Last 30 days?: No Have you Ever Experienced Previous Episodes of Alcohol Withdrawal?: No Have you ever Experienced Withdrawal Seizures?: No Have you ever Experienced Delirium Tremens(DT)s?: No Have you ever undergone Alcohol Rehabilitation Treatment (i.e, inpt ot outpatient treatment programs)?: No Have you ever Experienced Blackouts?: No Have you ever Combined Alcohol with other Downers within the last 90 days?: No Have you ever Combined Alcohol with any other Substance of Abuse during the last 90 days?: No Positive Blood Alcohol level on Presentation? [PCS.BAL]: No Evidence of Increased Autonomic Activity (i.e. HR>120, tremor, sweating, agitation, nausea)?: No Result: 0 Time Spent with Patient Time Spent with Patient: >50 minutes Time was spent: preparing to see the patient(eg.review tests), obtaining and/or reviewing separately otained hiistory, ordering medications,tests, procedures, referring, communicating with other health family day carer, indepentently interpreting results, counseling the patient and care coordination
--- NOTE | 2024-07-24 13:40 | IN_ITS ---
PT Notes Visit Reasons: acute exacerbation of CHF Inpatient Physical Therapy Evaluation Date: 07/24/24 Referring Doctor: Jen Godinez NP PT Orders: PT CONSULT: safety consult for D/C Precautions: standard Patient Profile/Admitting Diagnosis: Patient is a 74-year-old female with a past medical history of CKD, NIDDM, hypertension, heart failure, A-fib on Eliquis who presented emergency department complaints of worsening shortness of breath. Diagnosed with acute exacerbation of CHF, bilat pleural effusion, and acute respiratory failure. PT consult requested for safety consult for discharge. Social History/Home Situation: Myrtle lives in a private home with her , who is present at time of consult. She's independent at baseline, using a cane occasionally when outdoor conditions are icy. She admits to a sedentary lifestyle, but no history of falls. Equipment Owned/DME: cane Subjective: Myrtle states that she is feeling back to baseline with her breathing. She remains on 2LPM supplemental O2, but has not had any shortness of breath today. Has been walking around her room independently, and states that she feels good. She has no concerns about returning home. Objective: General Observation: Sitting in chair, supplemental O2 in place via nasal cannula. SaO2 monitoring via left hand finger monitor. Mental Status: A&Ox3. Pain: denies ROM: Right Upper Extremity: WFL Left Upper Extremity: WFL Right Lower Extremity: WFL Left Lower Extremity: WFL Strength: Right Upper Extremity: Grossly 3/5 or greater for all motions Left Upper Extremity: Grossly 3/5 or greater for all motions Right Lower Extremity: Hip flexion 4/5. Quads 5/5. Ankle DF 4+/5. Left Lower Extremity: Hip flexion 4/5. Quads 5/5. Ankle DF 4+/5. Bed Mobility/Transfers: sit-stand: independent. Able to complete without UE support. Gait: Ambulates 35' independently, without device. Able to turn 180* with good safety awareness and management of O2 tubing. Balance: Static Sitting: normal Dynamic Sitting: normal Static Standing: normal Dynamic Standing: normal 4-Position Balance Test: 3/4 Small JUAN ANTONIO: 10 seconds Partial Tandem: 10 seconds Full Tandem: 1- seconds Single Leg Stance: 0 seconds (able to complete with min A) Special Tests: Mobility Limitations Standardized Measure [facility] 6 clicks Basic Mobility Inpatient Short Form: Raw Score: 24 CMS Score: 0% impairment Informed Consent/Education: Patient instructed in purpose of PT consult and plan of care. Instruction in HEP: sit-stand 5x with pacing for breathing small JUAN ANTONIO standing with eyes closed x 30 seconds (perform in corner at home for safety) tandem stance 30 seconds each side (performed with INSTRUMENTAL MUSIC TEACHER today; use corner at home) Assessment: Patient is a 74 year old female referred to physical therapy services for safety consult for discharge planning during acute care stay for medical management of CHF exacerbation. Patient presents with baseline level of function. She does report sedentary lifestyle, and would benefit from increased activity at home and via community programs for fall risk reduction. Discussed local options today. She does get the [employer] at home for community activities, and will use this for reference. At this point, she is demonstrating baseline level mobility, and is appropriate for discharge home with no new services once medically stable. She currently demonstrates the following impairment level findings: 1. new O2 requirement 2. unable to single leg stand Impairments are contributing to the following functional limitations: 1. baseline level of function Patient is assessed as a Low 69046 complexity based on the following: History: as above Examination: as above Presentation: evolving due to acute medical issues Decision Making: low complexity Plan of Care/Treatment Plan: No further PT intervention required in acute care setting. DISCHARGE RECOMMENDATIONS: Home with no services TREATMENT CODE/TIME: [id number] ([id number]) Krystal Queen, PT, DPT [facility] All Active Problems (Updated 07/24/24 @ 12:57 by Jen Godinez APRN) Hypokalemia (Acute) Acute respiratory failure with hypoxia (Acute) Pleural effusion due to congestive heart failure (Acute) Acute exacerbation of CHF (congestive heart failure) (Acute) Hypocalcemia (Acute) Generalized weakness (Acute) Anticoagulant long-term use (Acute) Prolonged Q-T interval on ECG (Acute) Blunt head trauma (Acute) Medical History (Updated 07/24/24 @ 12:57 by Jen Godinez APRN) Acute blood loss anemia Atrial fibrillation Hypertension Diabetes mellitus, type II Fear of needles Obesity Allergic rhinitis, seasonal Spigelian hernia Hyperlipidemia Chronic kidney disease Skin lesion
[2024-07-24] MEDS: Potassium Chloride 20 MEQ TABCR 40 MEQ PO (14:02)
--- NOTE | 2024-07-24 15:19 | CHAPLAIN ---
Myrtle was sitting up in the chair when I visited. She said she was feeling better after having trouble breathing. She expects her to be in to visit. I explained my role and offered support.
[2024-07-24 15:28] VITALS: BP 141/62; PULSE 60; RESP 18; TEMP 37.8; O2SAT 98
[2024-07-24 19:41] VITALS: BP 138/68; PULSE 68; RESP 18; TEMP 36.7; O2SAT 94
[2024-07-24] MEDS: Docusate Sodium 100 MG CAP PO (20:24)
[2024-07-25 03:59] VITALS: BP 147/69; PULSE 64; RESP 18; TEMP 36.8; O2SAT 95
[2024-07-25 06:37] LABS: Anion Gap 4.7 mmol/L (3-11); BUN 28 mg/dL (7-18); CO2 36.3 mmol/L (21.0-32.0); CREATININE 1.3 mg/dL (0.55-1.02); Calcium 9.4 mg/dL (8.5-10.1); Chloride 103 mmol/L (98-107); Estimated GFR 43.42 (mL/min/1.73m2); Glucose 117 mg/dL (74-106); Magnesium 1.7 mg/dL (1.8-2.4); Potassium 3.7 mmol/L (3.5-5.1); Sodium 144 mmol/L (136-145); TSH (W/Ref FT4) 0.48 uIU/mL (0.36-3.74)
[2024-07-25 08:04] VITALS: BP 130/62; PULSE 66; RESP 20; TEMP 36.9; O2SAT 97
[2024-07-25 08:19] VITALS: O2SAT 97
[2024-07-25 08:24] VITALS: O2SAT 93
--- NOTE | 2024-07-25 08:48 | PDOC.CMPRO ---
Date of service: 07/25/24 Time of Service: 08:48 Care Management Progress Note Discharge Potential Discharge Needs: PT Evaluation, PCP F/U Appt and Other (Cardiology) Anticipated Barriers to Discharge: None Identified Patient/Family Education Needs: Review discharge instructions, discuss Ask Me Three Transportation: Private vehicle Plan: Anticipate Myrtle will be discharged home, possibly with new home health services for nursing, when medically stable. She will follow up with her community providers and plan of care and transport with family. CM will follow and continue to support discharge planning efforts. Social Determinants of Health Screening Social Determinants of Health last assessed: 07/25/24 Will the Patient Participate in the Screening?: Yes Do you worry about having a steady place to live?: no Problems where you live: no known problems In the past 12 months, have you had to go without electric, gas, oil or water in your home?: no Have you or anyone in your house had to go without enough food to eat?: no Has lack of transportation kept you from medical appointments or from doing things needed for daily living?: no Has anyone in your life made you feel unsafe or unsupported?: no How hard is it for you to pay for the very basics like food, housing, medical care, and heating? Would you say it is:: Not hard at all Do you want help finding or keeping work or a job?: I do not need or want help If for any reason you need help with day-to-day activities such as bathing, preparing meals, shopping, managing finances, etc., do you get the help you need?: I don?t need any help How often do you feel lonely or isolated from those around you?: Never Do you speak a language other than [place] Korean at home?: No Does the patient want assistance with any of the above?: No
[2024-07-25] MEDS: amLODIPine 10 MG TAB PO (09:16)
[2024-07-25] MEDS: Atorvastatin 40 MG TAB PO (09:16)
[2024-07-25] MEDS: Potassium Chloride 20 MEQ TABCR PO (09:16)
[2024-07-25] MEDS: Omega-3 Fatty Acids 1000 MG CAP PO (09:16)
[2024-07-25] MEDS: Magnesium Oxide 400 MG TAB PO (09:16)
[2024-07-25] MEDS: Apixaban 5 MG TAB PO (09:16)
[2024-07-25] MEDS: Multivitamin TAB 1 TAB PO (09:16)
[2024-07-25] MEDS: Normal Saline Flush 10 ML SYR IVP ×2 (09:17→10:01)
[2024-07-25] MEDS: Furosemide 40 MG/4 ML VIAL IVP (09:17)
[2024-07-25] MEDS: MAGNESIUM SULFATE 2 GM/50 ML BAG IV_INF (10:01)
[2024-07-25 10:28] LABS: Lab Add On Test DONE
[2024-07-25 12:26] VITALS: BP 140/94; PULSE 74; RESP 18; TEMP 36.8; O2SAT 94
[2024-07-25] MEDS: Furosemide 20 MG TAB PO (14:19)
[2024-07-25 14:38] VITALS: BP 125/68; PULSE 69; RESP 18; TEMP 37; O2SAT 96
--- NOTE | 2024-07-25 15:30 | DSE_ITS ---
Date of service: 07/25/24 Time of Service: 15:31 DS: Diagnosis Discharge Diagnosis (1) Acute exacerbation of CHF (congestive heart failure): Status: Acute (2) Pleural effusion due to congestive heart failure: Status: Acute (3) Acute respiratory failure with hypoxia: Status: Acute (4) Hypertension: (5) Atrial fibrillation: (6) Chronic kidney disease: (7) Hypokalemia: Status: Acute (8) Hypomagnesemia: Status: Resolved (9) Contraindication to deep vein thrombosis (DVT) prophylaxis: Status: Acute (10) Discharge planning issues: Status: Acute Discharge Plan Disposition Patient Disposition: Home Condition: Improving Discharge Details Reason For Visit: acute exacerbation of CHF Admit Date/Time: 07/23/24 21:23 Admit Provider: Mario Fraser Attending Provider: Mario Fraser Primary Care Provider: Mark Muñiz Hospital Course Hospital Course: This 74-year-old female patient with past medical history of CKD, [id number] diabetes mellitus, hypertension, heart failure, atrial fibrillation on Eliquis presented to the emergency department on 07/23/2024 with complaints of worsening shortness of breath. In the ED patient was found to have an elevated BNP of approximately 900, acute hypoxic respiratory failure with sat down to 78% on arrival and bilateral pleural effusion on chest x-ray and CT; small pericardial effusion also seen. Left lower lobe atelectasis also seen. In the ED the patient received IV push Lasix 40 mg with improvement of symptoms. The patient continued to require oxygen supplementation. The hospitalist was consulted and the patient was admitted to the medical surgical floor with telemetry for evaluation and management of acute CHF exacerbation, hypoxic respiratory failure, pleural effusion in the setting of congestive heart failure. The hospitalist ordered an additional dose of IV push Lasix 40 mg. During the stay the patient continued to receive IV push Lasix 40 mg twice a day. Electrolytes were corrected with supplementation. Today the patient no longer requires oxygen supplementation. As per physical therapy recommendation the patient was able to discharge home without needs for services. An echocardiogram was completed with the following results: Conclusion Left ventricle is borderline dilated. Ejection fraction is 60%. Wall motion is normal Normal right ventricular size and function Mildly enlarged left atrium. Right atrial size is normal There are no structural valvular abnormalities Mild mitral regurgitation Trace to mild tricuspid regurgitation. Estimated right ventricular systolic pressure is 50 mmHg Small pericardial effusion Referral was made for cardiology follow-up. An attempted referral was made for pulmonology follow-up in the setting of RVSP of 50 mmHg and suspected pulmonary hypertension workup, and left lower lobe atelectasis. In the instance that p ulmonology services would be unable to see patient, it would be important for the patient to follow-up with PCP to determine if any further referral is needed. CT also shows thyroid gland enlargement with recommendation for outpatient follow-up. TSH was normal. The patient will need to follow-up with primary care practitioner within 7 days of discharge. The patient will be discharged home on oral Lasix therapy and will follow-up with her electrolytes and dosage adjustment. Discussed with Dr. Israel Home Meds and New Rx's Prescriptions: New furosemide 20 mg tablet 20 mg PO BID Qty: 60 0RF Rx Instructions: Take at 08:00 AM and 16:00 or 4PM docusate sodium [Colace] 100 mg capsule 100 mg PO BID Qty: 30 0RF Rx Instructions: Take twice a day for constipation - stop if stools have a soft/ loose co nsistency Continued multivitamin Tablet 1 tab PO DAILY calcium carbonate [Calcium 600] 600 mg calcium (1,500 mg) tablet 600 mg PO BID bisoprolol fumarate 10 mg tablet 10 mg PO DAILY atorvastatin 40 mg tablet 40 mg PO DAILY colchicine 0.6 mg capsule 0.6 mg PO DAILY PRN Patient Comments: TAKE ONE CAPSULE BY MOUTH EVERY DAY allopurinol 100 mg tablet 100 mg PO DAILY Patient Comments: TAKE ONE TABLET BY MOUTH EVERY DAY potassium chloride 20 mEq tablet extended release 20 meq PO BID Patient Comments: confirmed by [facility] amlodipine 10 mg tablet 10 mg PO DAILY omega 3-vwx-drz-fish oil [Fish Oil] 1,000 (120-180) mg capsule 1 cap PO BID magnesium oxide 400 mg magnesium tablet 400 mg PO BID Eliquis 5 mg tablet 5 mg PO BID Discharge Instructions Instructions: Heart Failure, Adult (DC) Stand Alone Forms: Nursing Discharge Form Referrals: Mark Muñiz MD [Primary Care Provider] - 08/02/24 10:30 am (Follow-up please within 7 days of discharge) Anabelle Smith MD [ [facility] STAFF PHYSICIAN] - (Follow-up with 1-2 weeks: In for CHF exacerbation. LVEF 60%, RVSP 50 mmH w normal RV size and function- mildly enlarged left atrium w/o mitral stenosis- small pericardial effusion, bilateral pleural effusion w increase lung markings- volume loss-partial collapse of the left lower lobe. Office will call you to set up an appointment. ) Carol Schultz PA [[employer]] - (Follow-up with 1-2 weeks: In for CHF exacerbation. LVEF 60%, RVSP 50 mmH w normal RV size and function- mildly enlarged left atrium w/o mitral stenosis- small pericardial effusion, b ilateral pleural effusion w increase lung markings- volume loss-partial collapse of the left lower lobe. Referral faxed to pulmonology, please call to make a appointment. ) Activity:: Activity as Tolerated Equipment/Supplies:: No Equipment Needed Diet:: heart healty- diabetic DS: Summary Time Spent with Patient providing and/or coordinating discharge services: Greater than 30 minutes Status at Discharge Functional status at discharge: independent ambulation Overall status at discharge: patient is progressing back to baseline Mental Status: mental status grossly normal Speech and Movement: speech and movement normal Mood: congruent mood Affect: normal affect Quality:SDOH Health Related Social Needs: No Data to Display Exam Narrative Exam Narrative: Constitutional The patient is sitting in chair, eating lunch,w/o acute distress Neuro:alert and oriented X3; no focal deficits . Resp: Unlabored breathing, clear lung bilaterally with decreased left base Cardio: regular rhythm, S1, S2, no murmur, positive to all 4 extremities, bilateral lower extremities trace edema GI: Abdomen is not distended, soft and non tender, bowel sounds are present : Negative Costovertebral angle tenderness Back/spine/Pelvis: No back tenderness, normal alignment Integumentary: No skin lesions or rash to exposed skin Extremities: strength 5/5 to bilateral lower and upper extremities Psych: RASS 0, congruent mood and normal affect. Psych Mental Status: mental status grossly normal Speech and Movement: speech and movement normal Mood: congruent mood Affect: normal affect DS: Data Vitals/I&O Vitals and I&O: Vital Signs Temperature 37.0 C 07/25/24 14:38 Temperature Source Temporal Artery Scan 07/25/24 14:38 Pulse 69 07/25/24 14:38 Pulse 54 L 07/23/24 21:01 Respiratory Rate 18 07/25/24 14:38 Respiratory Effort Normal, Non-Labored 07/23/24 23:11 Respiratory Depth Normal 07/23/24 23:11 Respiratory Pattern Normal 07/23/24 23:11 Blood Pressure 125/68 07/25/24 14:38 Blood Pressure Mean 84 07/23/24 21:01 Blood Pressure Position Sitting 07/23/24 16:45 Pulse Oximetry 96 07/25/24 14:38 Oxygen Delivery Method Room Air 07/25/24 14:38 Oxygen Flow Rate 0 07/25/24 14:38 Pain Level 0 07/25/24 09:00 Comment Notifying RN on vitals 07/24/24 15:28 Intake & Output 07/24/24 07/25/24 07/25/24 23:59 11:59 23:59 Intake Total 450 / 450 Output Total 2600 / 5550 200 / 1200 1000 / 1200 Balance -2590 / -5540 250 / -750 -1000 / -750 Intake: IV Oral 450 / 450 Output: Urine 2600 / 5550 200 / 1200 1000 / 1200 Other: Urine Color Pale Yellow Yellow Urine Appearance Clear Clear Clear Urine Odor None Normal Normal Comment Pt stated she didn't quite make it per patient she was just up to the bathroom Data Completed and Pending Labs on day of discharge: Labs from last 24 hours 07/25/24 07/25/24 10:28 05:50 Sodium 144 Potassium 3.7 Chloride 103 Carbon Dioxide 36.3 H Anion Gap 4.7 BUN 28 H Creatinine 1.3 H Est GFR (CKD-EPI 2020) 43.42 Glucose 117 H Hemoglobin A1c 6.0 H Calcium 9.4 Magnesium 1.7 L TSH 0.48 Add-On Test Request DONE PFS All Active Problems (Updated 07/25/24 @ 10:09 by Jen Godinez APRN) Contraindication to deep vein thrombosis (DVT) prophylaxis (Acute) Discharge planning issues (Acute) Hypokalemia (Acute) Acute respiratory failure with hypoxia (Acute) Pleural effusion due to congestive heart failure (Acute) Acute exacerbation of CHF (congestive heart failure) (Acute) Hypocalcemia (Acute) Generalized weakness (Acute) Anticoagulant long-term use (Acute) Prolonged Q-T interval on ECG (Acute) Blunt head trauma (Acute) Medical History (Updated 07/25/24 @ 10:09 by Jen Godinez APRN) Acute blood loss anemia Atrial fibrillation Hypertension Diabetes mellitus, type II Fear of needles Obesity Allergic rhinitis, seasonal Spigelian hernia Hyperlipidemia Chronic kidney disease Skin lesion Social History Smoking/Tobacco Use Status: Never Smoking risk assessment performed?: Yes Alcohol Intake: current Alcohol Intake frequency: 0-2 drinks per day Drug use: Never Substance use type: does not use Housing: house Do you feel safe at home: Yes Do you feel safe in your relationship?: Yes Additional Social history: lives with Time Spent with Patient Time Spent with Patient: 70-84 minutes4 Time was spent: preparing to see the patient(eg.review tests), obtaining and/or reviewing separately otained hiistory, ordering medications,tests, procedures, referring, communicating with other health career development manager, indepentently interpreting results, counseling the patient and care coordination
--- NOTE | 2024-07-25 15:40 | PDOC.CMDIS ---
Date of service: 07/25/24 Time of Service: 15:40 LACE Index Scoring Tool Questions: Length of Stay (in days): 2 Was the patient admitted via the E.D.?: Yes Comorbidities: Diabetes w/o Complication, Congestive Heart Failure and Liver or Renal Disease E.D. Visits: 3 Answers: Total Score: 13 Risk of Readmission: High Risk Care Management Discharge Plan Reason for Hospitalization: CHF Discharge Plan: Anticipate Myrtle will be discharged home with no new services. She will follow up with her community providers and plan of care and transport with her . Patient/Family Education Needs: Review of discharge instructions, limitations, low sodium diet, daily weights, follow up plan and discuss Ask Me Three. [facility] Health Related Social Needs: No Data to Display
--- NOTE | 2024-07-26 07:13 | NUR.NOTE ---
Access chart to reconcile EKG orders with EKG's in [facility]. Duplicate order cancelled. Nursing Note:
== END 2024-07-25 17:56 | disposition home or self-care (01) | DRG 291 ==
LOC: ER 22:57 → MS 22:57
PROVIDERS: Nurse Practitioner Acute Care; Admitting Provider Family Medicine; Emergency Provider Physician Assistant; PCP Family Medicine; Visit Provider Family Medicine
DX: I13.0 Hypertensive heart and chronic kidney disease with heart failure and stage 1 through stage 4 chronic kidney disease, or unspecified chronic kidney disease (principal); J96.01 Acute respiratory failure with hypoxia; Z68.41 Body mass index [BMI] 40.0-44.9, adult; J98.11 Atelectasis; I31.39 Other pericardial effusion (noninflammatory); I27.20 Pulmonary hypertension, unspecified; I34.0 Nonrheumatic mitral (valve) insufficiency; I50.9 Heart failure, unspecified; E11.22 Type 2 diabetes mellitus with diabetic chronic kidney disease; N18.9 Chronic kidney disease, unspecified; E66.9 Obesity, unspecified; I48.91 Unspecified atrial fibrillation; E87.6 Hypokalemia; E83.42 Hypomagnesemia; Z79.01 Long term (current) use of anticoagulants; R79.1 Abnormal coagulation profile; R53.1 Weakness; R94.31 Abnormal electrocardiogram [ECG] [EKG]
CPT/HCPCS: 00123; 36415; 71275; 80048; 80053; 85027; 93005; 93306; 96365; 96366; 96375; 96376; 97161; 99291; 71045; 83036; 83735; 83880; 84443; 84484; 85025; 85379; 93010; 94760; 99223; 99233; 99239; J1940; J3475; J3490

== ENCOUNTER 2024-08-02 15:08 | Outpatient (REF) | payer MEDICARE, SELFPAY ==
[2024-08-02 15:40] LABS: Anion Gap 6.8 mmol/L (3-11); BUN 25 mg/dL (7-18); CO2 32.2 mmol/L (21.0-32.0); CREATININE 1.2 mg/dL (0.55-1.02); Calcium 9.7 mg/dL (8.5-10.1); Chloride 104 mmol/L (98-107); Glucose 130 mg/dL (74-106); Potassium 3.8 mmol/L (3.5-5.1); Sodium 143 mmol/L (136-145)
== END 2024-08-02 15:09 | disposition home or self-care (01) ==
LOC: NCHCN 15:08
PROVIDERS: PCP Family Medicine; Visit Provider Family Medicine
DX: E87.6 Hypokalemia (principal)
CPT/HCPCS: 80048

== ENCOUNTER 2024-08-09 08:41 | Outpatient (CLI) | payer MEDICARE, SELFPAY ==
--- NOTE | 2024-08-09 08:30 | RT.EKG_ITS ---
APPROVED REPORT Exam: Resting ECG Reason for Exam: Monitor QY interval Patient Location: O HR:51 bpm ECG Measurements Heart Rate 51 AXIS [place] 174 P 52 QRSd 110 QRS 63 QT 435 T 35 QTc 401 Conclusion Sinus rhythm...normal P axis, V-rate 50- 99 RSR' in V1 or V2, Otherwise normal ECG
== END 2024-08-09 08:42 | disposition home or self-care (01) ==
LOC: DI.CARD 08:44
PROVIDERS: PCP Family Medicine; Visit Provider Internal Medicine Cardiovascular Disease
DX: R94.31 Abnormal electrocardiogram [ECG] [EKG] (principal)
CPT/HCPCS: 93010

== ENCOUNTER → 2024-08-09 11:32 | Outpatient (BNVA) | payer MEDICARE, SELFPAY | PROVIDERS: PCP Family Medicine; Referring Provider Family Medicine; Visit Provider Internal Medicine Cardiovascular Disease | DX: I48.0 Paroxysmal atrial fibrillation (principal); I50.32 Chronic diastolic (congestive) heart failure; I10 Essential (primary) hypertension | CPT/HCPCS: 93005; 99214 ==

== ENCOUNTER 2024-09-17 00:49 | Outpatient (CLI) | payer MEDICARE, SELFPAY ==
--- NOTE | 2024-09-17 | DI.MAMMO_ITS ---
Exam(s) MAMMO SCREENING EXAM: MAMMO SCREENING CLINICAL HISTORY: Z12.31 Screening TECHNIQUE: Mammograms were interpreted according to the usual protocol including computer analysis w Ayi Laile CAD system, tomosynthesis and C-view imaging. COMPARISON: 2015 through 2022 FINDINGS: The breasts are composed of mainly fatty density , Breast Density category A. No suspicious masses or suspicious microcalcifications are seen. No skin thickening or abnormal axillary lymph nodes are seen. There has been no significant change from prior exams. IMPRESSION: BI-RADS Category 1, Negative mammogram Yearly screening mammography is recommended. Breast Density - Category A, fatty density. A negative radiographic report should not delay biopsy if a dominant or clinically suspicious mass is present. Up to ten percent of cancers are not identified on mammography. A negative report may reinforce clinical impression. Adenosis and dense breasts may obscure an underlying neoplasm. False positive reports average 6 to 10%. Patient will receive a letter notifying them of these results.
== END 2024-09-17 01:09 ==
LOC: DI 00:49
PROVIDERS: PCP Family Medicine; Visit Provider Family Medicine
DX: Z12.31 Encounter for screening mammogram for malignant neoplasm of breast (principal); R92.313 Mammographic fatty tissue density, bilateral breasts
CPT/HCPCS: 77063; 77067

== ENCOUNTER 2024-10-25 01:08 | Outpatient (CLI) | payer MEDICARE, SELFPAY ==
--- NOTE | 2024-10-25 | DI.DEXA_ITS ---
Exam(s) XR DEXA BONE DENSITY W/WO KELSEY EXAM: XR DEXA BONE DENSITY W/WO KELSEY CLINICAL HISTORY: ASYMPTOMATIC MENOPAUSAL STATE, Z78.0, SCREENING TECHNIQUE: COMPARISON: DX DEXA BONE DENSITY WITH KELSEY from 06/08/2016 FINDINGS: Lateral Spine Image: Unremarkable. No compression deformities identified. Left hip: Total T-Score: 2.6. This compares to 3.3 on the prior examination. Total Z-Score: 4.3 T- and Z-scores: Within normal limits. Lumbar Spine: Total T-Score: 2.9. This compares to 2.6 on the prior examination. Total Z-Score: 5.3 T- and Z-scores: Within normal limits. IMPRESSION: No evidence of osteoporosis.
== END 2024-10-25 01:28 ==
LOC: DI 01:08
PROVIDERS: PCP Family Medicine; Visit Provider Family Medicine
DX: Z78.0 Asymptomatic menopausal state (principal); Z13.820 Encounter for screening for osteoporosis
CPT/HCPCS: 77080

== ENCOUNTER → 2024-11-01 08:50 | Outpatient (BNVA) | payer MEDICARE, SELFPAY | PROVIDERS: PCP Family Medicine; Referring Provider Family Medicine; Visit Provider Physical Therapy Assistant | DX: Z12.11 Encounter for screening for malignant neoplasm of colon (principal) ==

== ENCOUNTER → 2024-12-20 11:12 | Outpatient (BNVA) | payer MEDICARE, SELFPAY | PROVIDERS: PCP Family Medicine; Referring Provider Family Medicine; Visit Provider Surgery | DX: K46.9 Unspecified abdominal hernia without obstruction or gangrene (principal) | CPT/HCPCS: 99214 ==

== ENCOUNTER 2025-01-29 08:11 | Day surgery (SDC) | payer MEDICARE, SELFPAY ==
--- NOTE | 2025-01-28 19:47 | W.PREOPHP ---
Assessment and Plan Assessment and plan (1) Positive colorectal cancer screening using Cologuard test: Status: Acute Assessment and plan: Although the ventral hernia poses some increased procedural risk with regards to colonoscopy, I think that risk is outweighed by the potential benfits of follow up screening colonsocopy. Myrtle understands the risks. She had the chance to ask any new questions and we can proceed with colonoscopy as planned. History of Present Illness History of Present Illness Chief Complaint: positive cologuard test Narrative: Myrtle is 74 years old, and she recently underwent a Cologuard test as part of routine screening for colon cancers. The Cologuard test was positive. She was referred for colonoscopy, but there were some concerns regarding a large ventral hernia, and how that may complicate the procedure. She is back today for my opinion. With regards to the hernia itself, it sounds like this probably all started this umbilical hernia. She underwent open repair, and not long thereafter developed recurrent herniation. It is grown in size through the years. Generally, she is not at all bothered by it. Since her last visit, there have been no major changes with regards to the interval history. PFSH All Active Problems (Updated 01/29/25 @ 08:38 by Gabriela Teixeira) Positive colorectal cancer screening using Cologuard test (Acute) Heart failure with preserved ejection fraction (Acute) Pleural effusion due to congestive heart failure (Acute) Acute exacerbation of CHF (congestive heart failure) (Acute) Hypocalcemia (Acute) Generalized weakness (Acute) Anticoagulant long-term use (Acute) Prolonged Q-T interval on ECG (Acute) Blunt head trauma (Acute) Medical History (Updated 01/29/25 @ 08:38 by Gabriela Teixeira) History of cardioversion Hypokalemia Acute respiratory failure with hypoxia Acute blood loss anemia Atrial fibrillation Hypertension Diabetes mellitus, type II Fear of needles Obesity Allergic rhinitis, seasonal Spigelian hernia Hyperlipidemia Chronic kidney disease Skin lesion Surgical History (Updated 01/29/25 @ 08:39 by Gabriela Teixeira) History of tonsillectomy and adenoidectomy Hx of umbilical hernia repair x 2 Social History Smoking/Tobacco Use Status: Former Tobacco Use Quit Date: 07/04/99 Smoking risk assessment performed?: Yes Alcohol Intake: current Alcohol Intake frequency: 0-2 drinks per day Alcohol type: beer and wine Drug use: Never Substance use type: does not use Details: alcohol: t-2, one drink Housing: house Do you feel safe at home: Yes Do you feel safe in your relationship?: Yes Additional Social history: lives with Meds Allergies and Home Medications Allergies Allergy/AdvReac Type Severity Reaction Status Date / Time No Known Allergies Allergy Verified 01/29/25 08:34 Home Medications ?Medication ?Instructions ?Recorded ?Confirmed ?Type atorvastatin 40 mg tablet 40 mg PO DAILY 03/04/23 01/29/25 History bisoprolol fumarate 10 mg tablet 10 mg PO DAILY 03/04/23 01/29/25 History multivitamin 1 tab PO DAILY 03/04/23 01/29/25 History allopurinol 100 mg tablet 100 mg PO DAILY 05/04/24 01/29/25 History colchicine 0.6 mg capsule 0.6 mg PO DAILY PRN 05/04/24 01/29/25 History amlodipine 10 mg tablet 10 mg PO DAILY 07/23/24 01/29/25 History apixaban 5 mg tablet (Eliquis) 5 mg PO BID 07/23/24 01/29/25 History magnesium oxide 400 mg PO BID 07/23/24 01/29/25 History omega 2-pqa-eoi-fish oil 1,000 mg 1 cap PO BID 07/23/24 01/28/25 History (120 mg-180 mg) capsule (Fish Oil) furosemide 20 mg tablet 20 mg PO BID #60 tabs 07/25/24 01/29/25 Rx potassium chloride 20 mEq 20 meq PO DAILY 11/01/24 01/28/25 History tablet,extended release calcium carbonate (Calcium 600) 600 mg PO DAILY 12/20/24 01/28/25 History bisacodyl 5 mg tablet,delayed mg PO 01/29/25 History release polyethylene glycol 3350 17 g 01/29/25 History gram/dose oral powder Exam Const General: cooperative, healthy appearing and not in acute distress Neck Neck: normal visual inspection, no lymphadenopathy and supple Resp Effort & Inspection: normal respiratory effort Auscultation: clear to auscultation bilaterally Cardio Jugular venous pressure: no JVD Rate: regular rate Rhythm: regular rhythm Heart Sounds: S1 normal and S2 normal GI Inspection: normal to inspection Palpation: soft, no guarding and nontender Percussion: normal to percussion Auscultation: normal bowel sounds Neuro General: patient alert, patient awake and patient oriented x3 Psych Appearance: grossly normal
--- NOTE | 2025-01-28 19:50 | PDOC.DSDIS_ITS ---
Date of service: 01/29/25 Discharge Plan Disposition Patient Disposition: Home Condition: Good Discharge Details Reason For Visit: screening colonoscopy Attending Provider: Madhav Martinez Primary Care Provider: Mark Muñiz Home Meds and New Rx's Prescriptions: Continued multivitamin Tablet 1 tab PO DAILY bisoprolol fumarate 10 mg tablet 10 mg PO DAILY atorvastatin 40 mg tablet 40 mg PO DAILY calcium carbonate [Calcium 600] 600 mg calcium (1,500 mg) tablet 600 mg PO DAILY colchicine 0.6 mg capsule 0.6 mg PO DAILY PRN Patient Comments: TAKE ONE CAPSULE BY MOUTH EVERY DAY allopurinol 100 mg tablet 100 mg PO DAILY Patient Comments: TAKE ONE TABLET BY MOUTH EVERY DAY potassium chloride 20 mEq tablet extended release 20 meq PO DAILY Patient Comments: confirmed by [facility] amlodipine 10 mg tablet 10 mg PO DAILY omega 9-zpt-dju-fish oil [Fish Oil] 1,000 (120-180) mg capsule 1 cap PO BID magnesium oxide 400 mg magnesium tablet 400 mg PO BID furosemide 20 mg tablet 20 mg PO BID Qty: 60 0RF Rx Instructions: Take at 08:00 AM and 16:00 or 4PM Held Eliquis 5 mg tablet 5 mg PO BID Hold Instructions: Resume on 01/30/25. Resume on January 30 as you normally take it Discontinued bisacodyl [Dulcolax (bisacodyl)] 5 mg tablet,delayed release (DR/EC) 5 mg PO ONCE Qty: 4 0RF Rx Instructions: Take per colonoscopy instructions provided by ordering providers office polyethylene glycol 3350 17 gram/dose powder 17 g PO ONCE Qty: 238 0RF Rx Instructions: Take per colonoscopy instructions provided by ordering providers office bisacodyl [Dulcolax (bisacodyl)] 5 mg tablet,delayed release (DR/EC) 5 mg PO ONCE Qty: 4 0RF Rx Instructions: take per colonoscopy instructions polyethylene glycol 3350 17 gram/dose powder 238 g PO ONCE Qty: 238 0RF Rx Instructions: take per colonoscopy instructions No Action bisacodyl 5 mg tablet,delayed release (DR/EC) PO Patient Comments: TAKE TABLETS BY MOUTH ONCE FOR COLONOSCOPY BOWEL PREP PER COLONOSCOPY INSTRUCTIONS polyethylene glycol 3350 17 gram/dose powder Patient Comments: TAKE 238G BY MOUTH ONCE FOR COLONOSCOPY PREP; TAKE PER COLONOSCOPY INSTRUCTIONS Discharge Instructions Instructions: Colon polyps, Diverticulosis Additional Instructions: Myrtle, it was great seeing you today, and I hope you feel well after the procedure and make a quick recovery as you transition home. Things went very smoothly. I did find, and removed 4 polyps today. 1 of these was a little bit large, but does not appear particularly worrisome to the naked eye. All of these will be sent to the pathologist for them to review. Once I know the nature of these, we can make a plan for future colonoscopies together. If you need anything, or have any questions at all, please do not hesitate to ask, otherwise my office will be in touch once the results are available. 1. If tolerated, consume a soft, low fiber diet for 1-2 days. [address] not drive, drink alcohol, operate machinery, make critical decisions, or do activities that require coordination or balance for 24 hours. 3. Because air was put into your colon during the procedure, expelling air from your rectum (passing gas or farting) is normal. 4. You may not have a bowel movement for 1-3 days because of the colonoscopy prep. This is normal. 5. Go directly to the emergency room if you notice any of the following: Develop chills (warm to touch), or if you have a thermometer and your temperature is above 101 Difficulty breathing or difficultly swallowing Persistent vomiting Severe abdominal pain, other than gas cramps Severe chest pain Black, tarry stools Any bleeding ? exceeding one tablespoon 6. Call your physician if the site where your intravenous was started becomes red, swollen, painful, and warm to touch. 7. Your physician has reviewed your pre-procedure medications. Please continue to take those medications as previously ordered. You will be given specific in formation/education regarding any changes to your medications before leaving. Stand Alone Forms: Anesthesia Discharge InstTom Portillo (DSU) Activity:: Activity as Tolerated Diet:: As Tolerated Discharge Orders Discharge Orders: Discharge Order (Routine); Ordered 01/28/25 Ordered By: Madhav Martinez DS: Diagnosis Discharge Diagnosis (1) Positive colorectal cancer screening using Cologuard test: Status: Acute Asessment and Plan: Follow-up on polypectomy results
--- NOTE | 2025-01-28 19:54 | COLE_ITS ---
Date of service: 01/29/25 Time of Service: 11:03 Colonoscopy Report Date of procedure: 01/29/25 Pre-op diagnosis general: screening colonoscopy Post-op diagnosis procedure note: other (Colon polyps, diverticulosis) Procedure: colonoscopy with polypectomy Surgeon: Madhva Martinez Anesthesia Type: General:No Airway Estimated blood loss (mL): 5 Pathology: other (0.25 cm cecal polyp, 0.5 cm cecal polyp, 0.25 cm cecal polyp (single specimen); 1 cm polyp at 80 cm) Complications: None Disposition: same day Indications: Myrtle is a 75 year old woman who had a positive cologuard test. She needs a follow up screening colonoscopy Prep: Miralax/Dulcolax Procedure Start Time: 10:21 Procedure End Time: 10:54 Retraction Time: Findings: Cecal polyps x 3, 1 cm flat polyp at 80 cm Procedure Description: After the induction of anesthesia, and with the patient in left lateral decubitus position, I began by performing an external anorectal exam.? Perineum and skin were normal, as was the anal verge.? There was no evidence of external hemorrhoids.? Next, I performed a digital rectal exam.? I did not appreciate any abnormal findings.? Next, I advanced a colonoscope into the rectal vault.? I performed retroflexion.? This appeared normal.? Using insufflation, I then advanced the colonoscope beyond the rectal folds and into the sigmoid colon before advancing towards the cecum.? There is diverticulosis of all segments of the colon.? The scope was noted to be in the cecum by identification of the ileocecal valve and appendiceal orifice. Within the base of the cecum there was a 0.25 cm pedunculated polyp. This was removed with cold forceps. Another polyp about 0.5 cm and more pedunculated was also found in the cecum. This was removed with cold snare polypectomy. Finally, 1 more 0.25 cm flat polyp was also removed with cold forceps. These were all sent as a single specimen. I then began withdrawing the colonoscope using repeated irrigation as necessary for full evaluation of the colonic mucosa. Around 80 cm from the anal verge, just distal to the hepatic flexure was another area of flat polypoid tissue. This was about 1 cm in its longest dimension. This was removed with a energize snare polypectomy in piecemeal. A small area of polyposis adjacent to this was fulgurated with cautery. Once the scope was withdrawn to the level of the rectum, great care was taken to examine portions of the rectal folds.? Finally, the scope was withdrawn and the patient was brought to the same-day surgery recovery unit as the anesthetic wore off. ?The findings and instructions were shared with the patient prior to discharge. [place] Bowel Prep [place] Bowel Prep Right Colon: 3 Left Colon: 2 Transverse Colon: 3 Total Score: 8
[2025-01-29 08:32] VITALS: BP 150/92; PULSE 82; RESP 20; TEMP 36.3; O2SAT 99
[2025-01-29] MEDS: Lactated Ringers 1,000 ML 80 ML IV (09:00)
--- NOTE | 2025-01-29 09:25 | W.ANESPRE ---
General Info Date of Service Date Performed: 01/29/25 Height: 5 ft 3 in Weight: 96.9 kg Body Mass Index (BMI): 37.8 Surgical Procedure: Operation Date: 01/29/25 09:35 Proposed Procedure Side Surgeon shawn Martinez MD Meds Allergies and Home Medications Allergies Allergy/AdvReac Type Severity Reaction Status Date / Time No Known Allergies Allergy Verified 01/29/25 08:34 Home Medication ?Medication ?Instructions ?Recorded atorvastatin 40 mg tablet 40 mg PO DAILY 03/04/23 bisoprolol fumarate 10 mg tablet 10 mg PO DAILY 03/04/23 multivitamin 1 tab PO DAILY 03/04/23 allopurinol 100 mg tablet 100 mg PO DAILY 05/04/24 colchicine 0.6 mg capsule 0.6 mg PO DAILY PRN 05/04/24 amlodipine 10 mg tablet 10 mg PO DAILY 07/23/24 apixaban 5 mg tablet (Eliquis) 5 mg PO BID 07/23/24 magnesium oxide 400 mg PO BID 07/23/24 omega 4-ktu-gom-fish oil 1,000 mg 1 cap PO BID 07/23/24 (120 mg-180 mg) capsule (Fish Oil) furosemide 20 mg tablet 20 mg PO BID #60 tabs 07/25/24 potassium chloride 20 mEq 20 meq PO DAILY 11/01/24 tablet,extended release calcium carbonate (Calcium 600) 600 mg PO DAILY 12/20/24 bisacodyl 5 mg tablet,delayed mg PO 01/29/25 release polyethylene glycol 3350 17 g 01/29/25 gram/dose oral powder Current Visit Medications: Current Medications Generic Name Dose Route Start Last Admin Trade Name Batsheva PRN Reason Stop Dose Admin Ringer's Solution 1,000 mls @ 80 mls/hr 01/29/25 06:00 01/29/25 09:00 IV 01/29/25 23:59 80 mls/hr INFUSION RESHMA Administration IV Miscellaneous Supplies 1 each 01/29/25 06:00 Iv Access IV 01/29/25 23:59 DIRECTED RESHMA Ondansetron HCl 4 mg 01/28/25 19:55 Ondansetron 4 Mg/2 Ml Vial IVP 02/27/25 19:54 Q4H PRN PRN Nausea / Vomiting Sodium Chloride 0 ml 01/29/25 06:00 Normal Saline Flush 10 Ml Syr IV 01/29/25 23:59 PRN PRN Sodium Chloride 0 ml 01/29/25 06:00 Normal Saline 10 Ml Vial IJ 01/29/25 23:59 DIRECTED PRN Sterile Water 0 ml 01/29/25 06:00 Water,Injection,Sterile 10 Ml Vial IJ 01/29/25 23:59 DIRECTED PRN PFSH Active Problems Active Problems: Problem Status Onset Code Positive colorectal cancer screening using Cologuard test Acute R19.5 Heart failure with preserved ejection fraction Acute I50.30 Pleural effusion due to congestive heart failure Acute I50.9 Acute exacerbation of CHF (congestive heart failure) Acute I50.9 Hypocalcemia Acute E83.51 Generalized weakness Acute R53.1 Anticoagulant long-term use Acute Z79.01 Prolonged Q-T interval on ECG Acute R94.31 Blunt head trauma Acute S09.8XXA Medical History Medical History (Updated 01/29/25 @ 08:38 by Gabriela Teixeira) History of cardioversion Hypokalemia Acute respiratory failure with hypoxia Acute blood loss anemia Atrial fibrillation Hypertension Diabetes mellitus, type II Fear of needles Obesity Allergic rhinitis, seasonal Spigelian hernia Hyperlipidemia Chronic kidney disease Skin lesion Surgical History Surgical History (Updated 01/29/25 @ 08:39 by Gabriela Teixeira) History of tonsillectomy and adenoidectomy Hx of umbilical hernia repair x 2 Tobacco Smoking/Tobacco Use Status: Former Tobacco Use Alcohol Alcohol Intake: current Alcohol intake frequency: 0-2 drinks per day Alcohol type: beer and wine Substance Use Substance use: Never Substance use type: does not use Details: alcohol: t-2, one drink Vital Signs and Lab Results Vital Signs Most Recent Vital Signs in EMR: Most Recent Vital Signs Temp Pulse Resp BP Pulse Ox 36.3 C L 82 20 150/92 H 99 01/29/25 08:32 01/29/25 08:32 01/29/25 08:32 01/29/25 08:32 01/29/25 08:32 Anesthesia Assessment and Plan Anesthesia History Personal History: No History of Anesthesia Complications Family History: No Family History of Anesthesia Complications Exercise Tolerance Exercise Tolerance: Metabolic Equivalents>4 Pertinent Negatives Pertinent Negatives: No Symptoms of GERD Cardiac & Pulmonary Exam Cardiac Exam: Normal S1/S2 Heart Sounds Pulmonary Exam: Clear Bilateral Breath Sounds Implantable Cardiac Device Does patient have a Pacemaker or an ICD?: No Airway Exam Known Difficult Airway: No Mallampati Class: 2 Mouth Opening: Normal (> 3cm) Thyromental Distance: Greater than 3 cm Neck Range of Motion: Full ROM Neck Circumference: Normal Teeth Condition: Normal Dentition ASA Classification ASA Score: ASA 3 Emergency Case?: No NPO Status NPO Status: NPO Clears >2 hours, Solids >8 hours Anesthesia Plan Resuscitation Status: Full Code Anesthesia Technique: General Anesthesia Airway Planned: Natural Airway Monitors Used: Standard Monitors
[2025-01-29 09:26] VITALS: BMI 37.8
--- NOTE | 2025-01-29 10:45 | BOWEL_PTH ---
PATIENT: Myrtle Francois LOC: [facility] U#:[id number] AGE/SX: 75/F ROOM: RE01/29/[address]: Madhav Martinez MD : [id number] BED: DIS: 01/29/2025 SPEC #: [id number] RECD: 01/29/25 12:42 STATUS: RANDY REQ #: [id number] PAM: 01/29/25 10:[address]: Madhav Martinez DEPT: Surgical Specimen RECD BY: Dunia Weir ENTERED: 01/29/25 12:44 SP TYPE: Bowel OTHR DR: Mark Muñiz Tissues: 1 - BIOPSY BOWEL 2 - BIOPSY BOWEL Procedures: GROSS AND MICRO LEVEL 4 Comments: [id number]
[2025-01-29 10:57] VITALS: BP 107/69; PULSE 78; RESP 20; TEMP 36.1; O2SAT 95
--- NOTE | 2025-01-29 11:02 | W.ANESPOSTOP ---
Postoperative Evaluation Date, Time and Location Date Performed: 01/29/25 Time Performed: 11:02 Patient Location: Day Surgery Unit Vital Signs Most Recent Imported Vital Signs: Most Recent Vital Signs Temp Pulse Resp BP Pulse Ox 36.3 C L 82 20 150/92 H 99 01/29/25 08:32 01/29/25 08:32 01/29/25 08:32 01/29/25 08:32 01/29/25 08:32 Pain Score Most Recent Pain Score: Most Recent Pain Score Pain Level 0 01/29/25 08:32 Assessment Mental Status: Awake (Alert & Oriented to Patient Baseline) Airway and Respiratory Function: Patent airway with normal (patient baseline) respiratory exam Cardiovascular Function: Hemodynamically Stable Hydration Status: Adequately Hydrated Nausea & Vomiting: No Nausea or Vomiting Pain: Pt. Denies Any Pain Peripheral Nerve Block: Patient did not receive a nerve block
[2025-01-29 11:30] VITALS: BP 141/65; PULSE 67; RESP 16; TEMP 36.2; O2SAT 99
== END 2025-01-29 12:05 | disposition home or self-care (01) ==
LOC: SUR 08:11
PROVIDERS: PCP Family Medicine; Visit Provider Surgery
PROC: 0DJD8ZZ Inspection of Lower Intestinal Tract, Via Natural or Artificial Opening Endoscopic (ICD-10-PCS; CPT 45378; principal; 2025-01-29 09:30)
DX: Z12.11 Encounter for screening for malignant neoplasm of colon (principal); K57.30 Diverticulosis of large intestine without perforation or abscess without bleeding; D12.0 Benign neoplasm of cecum; D12.4 Benign neoplasm of descending colon
CPT/HCPCS: 45385; 45380; 88305; J2003; J2704

== ENCOUNTER → 2025-02-07 10:55 | Outpatient (BNVA) | payer MEDICARE, SELFPAY | PROVIDERS: PCP Family Medicine; Referring Provider Family Medicine; Visit Provider Internal Medicine Cardiovascular Disease | DX: I50.32 Chronic diastolic (congestive) heart failure (principal); I48.0 Paroxysmal atrial fibrillation; Z79.01 Long term (current) use of anticoagulants | CPT/HCPCS: 99214 ==